=== PATIENT | female | born 1940 | race Caucasian/White ===

== ENCOUNTER 2020-09-06 15:58 | Inpatient (IN) | payer MEDICARE ==
[2020-09-06] MEDS ORDERED: NALOXONE 0.4 MG/ML 1 ML VIAL IV PRN (16:12)
[2020-09-06] MEDS ORDERED: SODIUM CHLORIDE 0.9% 1,000 ML IV SCH (16:15)
--- NOTE | 2020-09-06 16:17 | ED ---
General Adult HPI - General Chief complaint: Abdominal Pain Stated complaint: gallbladder Time Seen by Provider: 09/06/20 15:59 Source: patient, RN notes reviewed, old records reviewed Mode of arrival: EMS Limitations: no limitations - History of Present Illness Initial comments: 80-year-old female presenting for evaluation of abdominal pain and CT findings of acute cholecystitis. Patient was seen at outside emergency department and was found to have acute cholecystitis she was transferred here for surgical evaluation. She denies fever. Denies vomiting. Pain is epigastric and right upper quadrant. She did have one episode of diarrhea. - Related Data Allergies Allergy/AdvReac Type Severity Reaction Status Date / Time No Known Allergies Allergy Verified 09/06/20 16:05 Review of Systems ROS Statement: Those systems with pertinent positive or pertinent negative responses have been documented in the HPI. ROS Other: All systems not noted in ROS Statement are negative. Past Medical History Past Medical History: GERD/Reflux, Hyperlipidemia, Hypertension, Thyroid Disorder Additional Past Medical History / Comment(s): anemia History of Any Multi-Drug Resistant Organisms: None Reported Past Surgical History: Hysterectomy Past Psychological History: Anxiety, Depression Smoking Status: Never smoker Past Alcohol Use History: None Reported Past Drug Use History: None Reported General Exam Limitations: no limitations General appearance: alert, in no apparent distress Head exam: Present: atraumatic, normocephalic Eye exam: Present: normal appearance, PERRL ENT exam: Present: normal exam Neck exam: Present: normal inspection. Absent: tenderness, meningismus Respiratory exam: Present: normal lung sounds bilaterally. Absent: respiratory distress, wheezes Cardiovascular Exam: Present: regular rate, normal rhythm GI/Abdominal exam: Present: soft, tenderness (Epigastric and right upper quadrant tenderness). Absent: distended, guarding, rebound Extremities exam: Present: normal inspection, normal capillary refill Neurological exam: Present: alert, oriented X3, CN II-XII intact. Absent: motor sensory deficit Psychiatric exam: Present: normal affect, normal mood Skin exam: Present: warm, dry, intact. Absent: cyanosis, diaphoretic Course Vital Signs 09/06/20 15:59 Temperature 98.0 F Pulse Rate 59 L Respiratory 18 Rate Blood Pressure 129/65 O2 Sat by Pulse 95 Oximetry Medical Decision Making - Medical Decision Making Workup had revealed inflammation surrounding the gallbladder extending to the pancreatic head, concerning for an acute cholecystitis. Patient was started on Zosyn prior to transfer. She had lab abnormalities including a white blood cell count of 24. Hemoglobin 12.1. Platelets 236. She had normal AST and ALT and negative lipase. I discussed case with Dr. Gonzales, she will accept the patient for surgical evaluation. Patient kept on a clear liquid diet, continued on Zosyn. The CT images will be loaded. Laboratory studies will be repeated including CBC, CMP, PT/INR and type and screen these are pending. Disposition Clinical Impression: Acute cholecystitis Disposition: ADMITTED IP TO THIS HOSP Condition: Stable Is patient prescribed a controlled substance at d/c from ED?: No Referrals: José Miguel Marques MD [Primary Care Provider] - 1-2 days Decision to Admit Reason: Admit from EC Decision Date: 09/06/20 Decision Time: 16:17
[2020-09-06 16:26] LABS: Basophils % (A) 0 %; Eosinophils % (A) 0 %; HCT 32.3 % (34.0-46.0); HGB 11.2 gm/dL (11.4-16.0); Lymphocytes # (A) 1.1 k/uL (1.0-4.8); Lymphocytes % (A) 6 %; MCH 33.9 pg (25.0-35.0); MCHC 34.6 g/dL (31.0-37.0); MCV 98.1 fL (80.0-100.0); Mean Platelet Volume 7.3; Monocytes # (A) 0.7 k/uL (0-1.0); Monocytes % (A) 3 %; Neutrophils % (A) 89 %; Platelet Count 173 k/uL (150-450); RDW 12.5 % (11.5-15.5); WBC 19.1 k/uL (3.8-10.6)
[2020-09-06 16:34] LABS: Albumin 3.1 g/dL (3.5-5.0); Calcium 8.3 mg/dL (8.4-10.2); Potassium 3.3 mmol/L (3.5-5.1); Prothrombin Time 10.7 sec (9.0-12.0); Total Bilirubin 0.9 mg/dL (0.2-1.3); Total Protein 5.9 g/dL (6.3-8.2)
[2020-09-06] MEDS ORDERED: Potassium Replacement Protocol 1 EACH MISC MISCELLANE PRN ×2 (17:12→21:17)
[2020-09-06] MEDS: POTASSIUM CHLORIDE ER 20 MEQ TAB.ER PO SCH ×2 (18:08→20:04)
[2020-09-06] MEDS: METOPROLOL TARTRATE 12.5 MG TAB PO SCH (20:46)
[2020-09-06] MEDS ORDERED: Magnesium Replacement Protocol 1 EACH MISC MISCELLANE PRN (21:17)
[2020-09-06] MEDS: PANTOPRAZOLE 40 MG/10 ML VIAL IVP SCH (21:36)
[2020-09-06] MEDS: HEPARIN SODIUM,PORCINE 5,000 UNIT/ML 1 ML VIAL SQ SCH (21:36)
[2020-09-06] MEDS: SODIUM CHLORIDE 0.9% 1,000 ML with POTASSIUM CHLORIDE 40 MEQ IV SCH ×2 (22:57)
[2020-09-07] MEDS: PIPERACILLIN-TAZOBACTAM 3.375 GM in SODIUM CHLORIDE 0.9% 100 ML IVPB SCH ×3 (00:15→15:39)
--- NOTE | 2020-09-07 03:57 | CONS ---
CONSULTATION DATE OF SERVICE: 09/06/2020 REASON FOR CONSULTATION: Advice regarding hypertension, hyperlipidemia requested by Dr. Gonzales. HISTORY OF PRESENT ILLNESS: This 80-year-old woman with a past medical history of hypertension, hyperlipidemia, hypothyroidism, history of GERD, living in [facility], was admitted with abdominal pain. The patient had a CT scan finding which showed acute cholecystitis. The patient was transferred from [facility] for surgical evaluation. There is no history of any fever or rigors. No headache, loss of consciousness, seizures at this time. PAST MEDICAL HISTORY: History of GERD, hypertension, hyperlipidemia, history of bowel resection, appendectomy. MEDICATIONS: Medications are home medication: 1. Ambien 5 mg at bedtime. 2. Paxil 30 mg daily. 3. Metoprolol 12.5 mg b.i.d. 4. Synthroid 75 mcg p.o. daily. 5. Esomeprazole 40 mg at bedtime. ALLERGIES: None. FAMILY HISTORY: No history of heart disease or strokes in family. SOCIAL HISTORY: No history of smoking. No history of alcohol intake. REVIEW OF SYSTEMS: ENT: No diminished hearing or diminished vision. CARDIOVASCULAR SYSTEM: No angina. RESPIRATORY SYSTEM: No cough, hemoptysis GI: As mentioned earlier. : No dysuria. NERVOUS SYSTEM: No numbness or weakness. ALLERGY/IMMUNOLOGY: No asthma or hayfever. MUSCULOSKELETAL: As mentioned earlier. HEMATOLOGY/ONCOLOGY: No history of anemia. ENDOCRINE: As mentioned earlier. CONSTITUTIONAL: As mentioned earlier. DERMATOLOGY: Negative. RHEUMATOLOGY: Negative. PSYCHIATRIC: As mentioned earlier. PHYSICAL EXAMINATION: Patient is alert and oriented x3. Pulse 60, blood pressure 134/64, respiration 18, temperature 98 degrees, pulse ox 96% on room air. HEENT: Conjunctivae normal. Oral mucosa moist. NECK: No jugular venous distention. No carotid bruit. No lymph node enlargement. CARDIOVASCULAR: S1, S2 muffled. RESPIRATORY: Breath sounds diminished at the bases. No rhonchi, no crackles. ABDOMEN: Soft, mild diffuse discomfort in the upper abdomen. No guarding. No rigidity. No mass palpable. Bowel sounds present. LEGS: No edema. NERVOUS SYSTEM: Higher functions as mentioned. Moves all 4 limbs. LYMPHATICS: No lymphadenopathy of the neck, axillae or groin. SKIN: No ulcer, rash or bleeding. JOINTS: No active deforming arthropathy. LABS: WBC 19.1, hemoglobin 11.2. Sodium 123, potassium 3.3. LFTs are normal. ASSESSMENT: 1. Acute cholecystitis with abdominal pain. 2. Hyponatremia. 3. Hypokalemia. 4. Increased creatinine with possibly chronic kidney disease stage 3. 5. Increased WBC. 6. Anemia. 7. Hypertension. 8. Hyperlipidemia. 9. Hypothyroidism. 10.Appendectomy. 11.Bowel resection. 12.History of anxiety, depression. 13.NO CODE, NO CPR, NO VENT. RECOMMENDATIONS AND DISCUSSION: This 80-year-old woman presented with multiple medical issues, we will monitor the patient closely. Continue the current medications, continue symptomatic treatment. Repeat labs. Supplement potassium. Check magnesium. Otherwise cut down the IV fluids. The patient is medically stable and cleared for surgery. We will closely monitor. DVT prophylaxis. Incentive spirometry. The patient may be asked to follow with primary physician closely after discharge. Thank you Dr. Gonzales for letting us participate in the care of this patient. MMCONYL / BERNICEN: [id number] /
[2020-09-07] MEDS: LEVOTHYROXINE 75 MCG TAB PO SCH (05:14)
[2020-09-07] MEDS: METOPROLOL TARTRATE 12.5 MG TAB PO SCH (08:23)
[2020-09-07] MEDS: PARoxetine 20 MG TAB PO SCH (08:24)
[2020-09-07] MEDS: PANTOPRAZOLE 40 MG/10 ML VIAL IVP SCH (08:24)
[2020-09-07] MEDS: HEPARIN SODIUM,PORCINE 5,000 UNIT/ML 1 ML VIAL SQ SCH ×2 (08:24→22:19)
--- NOTE | 2020-09-07 09:07 | P.GSHP ---
<Leatha June - Last Filed: 09/07/20 09:00> History of Present Illness H&P Date: 09/07/20 CHIEF COMPLAINT: abdominal pain HISTORY OF PRESENT ILLNESS: This is a 80-year-old female with a known past medical history of hypertension, GERD, hyperlipidemia and hypothyroidism. Patient reports having abdominal pain in which she thought was pulled muscles after doing yard work for the last week. She had a computed tomography scan done of abdomen completed at [facility] her ER physician reported inflammation surrounding the gallbladder extending into the pancreatic head concerning for acute cholecystitis. Her LFTs and lipase are normal. Patient did report eating cheese and milk yesterday. She denies any change in bowel habits. She denies any fever, chills or sweats. She is complaining of urinary frequency. PAST MEDICAL HISTORY: See list. PAST SURGICAL HISTORY: See list. MEDICATIONS: See list. ALLERGIES: See list. SOCIAL HISTORY: No illicit drug use. REVIEW OF SYSTEMS: CONSTITUTIONAL: Denies fever or chills. HEENT: Denies blurred vision, vision changes, or eye pain. Denies hemoptysis ENDOCRINE: Denies heat or cold intolerance. CARDIOVASCULAR: Denies chest pain or pressure. RESPIRATORY: No shortness of breath. GASTROINTESTINAL: Denies abdominal pain. Denies nausea or vomiting. NEURO: Denies history of seizures. PSYCH: No depression or suicidal ideation HEMATOLOGIC: Denies bleeding disorders. LYMPHATIC: The patient denies any lumps and bumps around the neck. GENITOURINARY: Denies any blood in urine or increased urinary frequency. MUSCULOSKELETAL: Denies myalgias. Denies joint swelling. Denies decreased range of motion beyond patients baseline. SKIN: Denies pruitis. Denies rash. PHYSICAL EXAM: VITAL SIGNS: Reviewed GENERAL: Well-developed in no acute distress. HEENT: No sclera icterus. Extraocular movements grossly intact. Moist buccal mucosa. Head is atraumatic, normocephalic. Hears conversational speech. No nasal drainage. NECK: Supple without lymphadenopathy. CHEST: Non-labored respirations and equal bilateral excursions. CARDIOVASCULAR: Regular rate with regular rhythm. Palpable 2+ radial pulses. ABDOMEN: Soft. Nondistended. Tenderness with palpation of the right upper quadrant MUSCULOSKELETAL: No clubbing or cyanosis. NEUROLOGIC: No focal or lateralizing signs. Cranial nerves II through XII grossly intact. PSYCH: Appropriate affect. Alert and oriented to person, place and time. SKIN: Well perfused. Good skin turgor. LABORATORY DATA: WBC 19.1 hemoglobin 11.2 platelets 173 sodium 123 potassium 3.3 up to 4.0 creatinine 1.63 AST 23 ALT 12 lipase 57 IMAGING: ASSESSMENT: 1. Right upper quadrant abdominal pain concerns for possible cholecystitis 2. Hyponatremia 3. Hypokalemia 4. Hypertension 5. History of GERD 6. History of hyperlipidemia PLAN: -Check abdominal ultrasound to further evaluate the gallbladder -Start patient on a clear liquid diet -Start patient on Ditropan for urinary frequency -Continue antibiotics -Continue IV fluids -Medical consult for medical management -Cardiology consult for cardiac clearance Physician Cigarette Making Machine Catcher note has been reviewed by physician. Signing provider agrees with the documented findings, assessment, and plan of care. Past Medical History Past Medical History: GERD/Reflux, Hyperlipidemia, Hypertension, Thyroid Disorder Additional Past Medical History / Comment(s): anemia History of Any Multi-Drug Resistant Organisms: None Reported Past Surgical History: Appendectomy, Bowel Resection, Hysterectomy Additional Past Surgical History / Comment(s): partial bowel resection with the hysterectomy Past Psychological History: Anxiety, Depression Smoking Status: Never smoker Past Alcohol Use History: None Reported Past Drug Use History: None Reported Medications and Allergies Home Medications Medication Instructions Recorded Confirmed Type Esomeprazole Magnesium 40 mg PO HS 09/06/20 09/06/20 History Levothyroxine Sodium [Synthroid] 75 mcg PO DAILY 09/06/20 09/06/20 History Metoprolol Tartrate 12.5 mg PO BID 09/06/20 09/06/20 History PARoxetine [Paxil] 30 mg PO DAILY 09/06/20 09/06/20 History Zolpidem Tartrate [Ambien] 5 mg PO HS 09/06/20 09/06/20 History Allergies Allergy/AdvReac Type Severity Reaction Status Date / Time No Known Allergies Allergy Verified 09/06/20 16:47 Surgical - Exam Vital Signs Temp Pulse Resp BP Pulse Ox 98.0 F 59 L 18 129/65 95 09/06/20 15:59 09/06/20 15:59 09/06/20 15:59 09/06/20 15:59 09/06/20 15:59 Results - Labs 09/06/20 16:14 09/06/20 22:13 Abnormal Lab Results - Last 24 Hours (Table) 09/06/20 09/06/20 Range/Units 16:14 16:14 WBC 19.1 H (3.8-10.6) k/uL RBC 3.30 L (3.80-5.40) m/uL Hgb 11.2 L (11.4-16.0) gm/dL Hct 32.3 L (34.0-46.0) % Neutrophils # 17.0 H (1.3-7.7) k/uL Sodium 123 L (137-145) mmol/L Potassium 3.3 L (3.5-5.1) mmol/L Chloride 91 L (98-107) mmol/L BUN 26 H (7-17) mg/dL Creatinine 1.63 H (0.52-1.04) mg/dL Glucose 110 H (74-99) mg/dL Calcium 8.3 L (8.4-10.2) mg/dL Total Protein 5.9 L (6.3-8.2) g/dL Albumin 3.1 L (3.5-5.0) g/dL Diabetes panel 09/06/20 09/06/20 Range/Units 16:14 22:13 Sodium 123 L (137-145) mmol/L Potassium 3.3 L 4.0 (3.5-5.1) mmol/L Chloride 91 L (98-107) mmol/L Carbon Dioxide 24 (22-30) mmol/L BUN 26 H (7-17) mg/dL Creatinine 1.63 H (0.52-1.04) mg/dL Glucose 110 H (74-99) mg/dL Calcium 8.3 L (8.4-10.2) mg/dL AST 23 (14-36) U/L ALT 12 (4-34) U/L Alkaline Phosphatase 81 (38-126) U/L Total Protein 5.9 L (6.3-8.2) g/dL Albumin 3.1 L (3.5-5.0) g/dL Calcium panel 09/06/20 Range/Units 16:14 Calcium 8.3 L (8.4-10.2) mg/dL Albumin 3.1 L (3.5-5.0) g/dL Pituitary panel 09/06/20 09/06/20 Range/Units 16:14 22:13 Sodium 123 L (137-145) mmol/L Potassium 3.3 L 4.0 (3.5-5.1) mmol/L Chloride 91 L (98-107) mmol/L Carbon Dioxide 24 (22-30) mmol/L BUN 26 H (7-17) mg/dL Creatinine 1.63 H (0.52-1.04) mg/dL Glucose 110 H (74-99) mg/dL Calcium 8.3 L (8.4-10.2) mg/dL Adrenal panel 09/06/20 09/06/20 Range/Units 16:14 22:13 Sodium 123 L (137-145) mmol/L Potassium 3.3 L 4.0 (3.5-5.1) mmol/L Chloride 91 L (98-107) mmol/L Carbon Dioxide 24 (22-30) mmol/L BUN 26 H (7-17) mg/dL Creatinine 1.63 H (0.52-1.04) mg/dL Glucose 110 H (74-99) mg/dL Calcium 8.3 L (8.4-10.2) mg/dL Total Bilirubin 0.9 (0.2-1.3) mg/dL AST 23 (14-36) U/L ALT 12 (4-34) U/L Alkaline Phosphatase 81 (38-126) U/L Total Protein 5.9 L (6.3-8.2) g/dL Albumin 3.1 L (3.5-5.0) g/dL <Katie Gonzales - Last Filed: 09/07/20 22:10> History of Present Illness Patient seen and evaluated with above. Please see additional documentation below. HISTORY OF PRESENT ILLNESS: The patient is a 80-year-old female transferred from outside facility due to acute cholecystitis. Patient reports she has been feeling ill for almost one week with lower abdominal pain. She reports eating cheese and milk daily. She denies any family history of gallbladder disease. She is transferred from her local facility to [facility] following diagnostic studies demonstrating acute cholecystitis. She is tearful as she was transferred away from home at least 1.5 hrs. 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 She is scared. She was transferred for treatment of acute cholecystitis. PAST MEDICAL HISTORY: See list and reviewed PAST SURGICAL HISTORY: See list and reviewed MEDICATIONS: See list and reviewed ALLERGIES: See list and reviewed SOCIAL HISTORY: See list and reviewed FAMILY HISTORY: See list and reviewed REVIEW OF ORGAN SYSTEMS: CONSTITUTIONAL: No fevers or chills. EYES: Denies any trouble with vision. No glasses. HEENT: No difficulties with hearing. No nosebleeds. No difficulty swallowing. RESPIRATORY: Denies pneumonia. Denies any troubles with breathing or dyspnea on exertion. CARDIOVASCULAR: Denies any chest pain, palpitations, or recent heart attacks. GASTROINTESTINAL: Denies fatty food intolerance. Denies change in bowel habits and gas bloat. Previous bowel resection. Has gastroesophageal reflux disease. GENITOURINARY: Denies any blood in urine or increased urinary frequency. Previous hysterectomy. NEUROLOGICAL: Denies any numbness or tingling along the distal extremities. No seizure disorders or headaches. MUSCULOSKELETAL: Has back pain, stiffness or joint arthritis. SKIN: No current skin cancer. No rash. PSYCHIATRIC: Has depression. No suicidal thoughts. Has anxiety. ENDOCRINE: Has thyroid disorders. Denies any blood sugar glucose intolerance. HEME/LYMPHATIC: Denies any lumps and bumps around the neck. No recent deep venous thrombosis. ALLERGY/IMMUNOLOGY: No immunoglobulin therapy. No immune deficiencies. PHYSICAL EXAM: VITALS: Reviewed CONSTITUTIONAL: Well developed and in no acute distress. EYES: Conjuctivae without sclera icterus. Pupils are equally round and reactive to light. Extraocular movements grossly intact. HEAD, EARS, NOSE, THROAT: Moist buccal mucosa. Head is atraumatic, normocephalic. Hears conversational speech. No nasal drainage. NECK: Supple. No JV distention. No thyroidomegaly. RESPIRATORY: Non-labored respirations and equal bilateral excursions. No gross wheezes. CARDIOVASCULAR: Regular rate and rhythm. Extremities without moderate edema. Palpable 2+ radial pulses. ABDOMEN: Soft. Non-tender. Nondistended. MUSCULOSKELETAL: Nail and fingers with good capillary refill. SKIN: Warm and well perfused with good skin turgor. NEUROLOGIC: Cranial nerves II through XII grossly intact. Sensation upper and extremities intact. No focal or lateralizing signs. PSYCH: Appropriate affect. Alert and oriented to person, place and time. Displays appropriate insight. CLINCAL LABS: Reviewed. WBC 19,000 down down to 17,000. Hemoglobin stable 1 1.2. Initial sodium 123 now up to 130. Creatinine improved from 1.63-1.12 IMAGING: Ultrasound of the gallbladder independently reviewed demonstrating thickened gallbladder wall with multiple gallstones. Findings are consistent with acute cholecystitis. EKG: Nonspecific ST abnormality with premature atrial contractions. ECHO: Report revealed with ejection fraction of 55 to 60%. No moderate p ulmonary hypertension. Enlarged left atrium identified. No wall motion abnormality. Moderate left ventricular hypertrophy. ASSESSMENT: 1. Acute cholecystitis 2. Hyponatremia 3. Depressive disorder PLAN: 1. Patient is homesick and wishes to avoid surgery. However, sodium still low. Will need further correction of sodium. 2. Patient has features consistent with acute cholecystitis. Continue IV antibiotics. 3. Clear liquid diet in the interim. 4. Patient presents with elevated risk for perioperative complications due to delayed presentation of acute cholecystitis and hyponatremia. 5. Will need cholecystectomy due to cholecystitis Surgical - Exam Vital Signs Temp Pulse Resp BP Pulse Ox 98.0 F 59 L 18 129/65 95 09/06/20 15:59 09/06/20 15:59 09/06/20 15:59 09/06/20 15:59 09/06/20 15:59 Results - Labs 09/07/20 08:35 09/07/20 08:35 Abnormal Lab Results - Last 24 Hours (Table) 09/07/20 09/07/20 Range/Units 08:35 08:35 WBC 17.0 H (3.8-10.6) k/uL RBC 3.33 L (3.80-5.40) m/uL Hgb 11.2 L (11.4-16.0) gm/dL Hct 33.5 L (34.0-46.0) % MCV 100.4 H (80.0-100.0) fL Neutrophils # 15.4 H (1.3-7.7) k/uL Lymphocytes # 0.7 L (1.0-4.8) k/uL Sodium 130 L (137-145) mmol/L Carbon Dioxide 21 L (22-30) mmol/L Creatinine 1.12 H (0.52-1.04) mg/dL Total Protein 6.2 L (6.3-8.2) g/dL Albumin 3.3 L (3.5-5.0) g/dL Diabetes panel 09/06/20 09/07/20 Range/Units 22:13 08:35 Sodium 130 L (137-145) mmol/L Potassium 4.0 4.9 (3.5-5.1) mmol/L Chloride 100 (98-107) mmol/L Carbon Dioxide 21 L (22-30) mmol/L BUN 17 (7-17) mg/dL Creatinine 1.12 H (0.52-1.04) mg/dL Glucose 94 (74-99) mg/dL Calcium 8.7 (8.4-10.2) mg/dL AST 24 (14-36) U/L ALT 14 (4-34) U/L Alkaline Phosphatase 107 (38-126) U/L Total Protein 6.2 L (6.3-8.2) g/dL Albumin 3.3 L (3.5-5.0) g/dL Calcium panel 09/07/20 Range/Units 08:35 Calcium 8.7 (8.4-10.2) mg/dL Albumin 3.3 L (3.5-5.0) g/dL Pituitary panel 09/06/20 09/07/20 Range/Units 22:13 08:35 Sodium 130 L (137-145) mmol/L Potassium 4.0 4.9 (3.5-5.1) mmol/L Chloride 100 (98-107) mmol/L Carbon Dioxide 21 L (22-30) mmol/L BUN 17 (7-17) mg/dL Creatinine 1.12 H (0.52-1.04) mg/dL Glucose 94 (74-99) mg/dL Calcium 8.7 (8.4-10.2) mg/dL Adrenal panel 09/06/20 09/07/20 Range/Units 22:13 08:35 Sodium 130 L (137-145) mmol/L Potassium 4.0 4.9 (3.5-5.1) mmol/L Chloride 100 (98-107) mmol/L Carbon Dioxide 21 L (22-30) mmol/L BUN 17 (7-17) mg/dL Creatinine 1.12 H (0.52-1.04) mg/dL Glucose 94 (74-99) mg/dL Calcium 8.7 (8.4-10.2) mg/dL Total Bilirubin 0.8 (0.2-1.3) mg/dL AST 24 (14-36) U/L ALT 14 (4-34) U/L Alkaline Phosphatase 107 (38-126) U/L Total Protein 6.2 L (6.3-8.2) g/dL Albumin 3.3 L (3.5-5.0) g/dL
--- NOTE | 2020-09-07 09:11 | P.CRDCN ---
History of Present Illness Consult date: 09/07/20 Reason for Consult (text): pre op clearance Chief complaint: Abdominal pain History of present illness: This is a pleasant 80-year-old female with documented history of hypertension, hyperlipidemia, hypothyroidism, GERD, who lives in the [place] area. She presented to [facility] with symptoms of abdominal pain. Initially the patient thought she may have strained muscles in her abdomen from working outside. Computed tomography scan was performed which revealed acute cholecystitis. A cardiology consultation was requested for preoperative clearance. Patient denies any history of coronary artery disease. She does state that she gets a pressure and heaviness in her chest that comes and goes, she's been experiencing this off and on for several years. No more recently than usual. She denies any recent shortness of breath, no fever chills, no dizziness or lightheadedness, no palpitations. Patient states that she was working out in her garden the morning prior to going to [facility], when we asked her regarding her activity level she states that she is not very active at all because of back problems. Her EKG shows a sinus bradycardia with occasional PACs. White blood cell count 19.1, hemoglobin 11.2, platelet count 173, sodium on admission 123, potassium 3.3, 4.0 on subsequent draw, chloride 91, CO2 24, BUN 26, creatinine 1.6. AST and ALT are normal. The patient's home medications include Ambien 5 mg at bedtime, Paxil, metoprolol 12-1/2 twice a day, Synthroid 75 g daily, and Nexium. Past Medical History Past Medical History: GERD/Reflux, Hyperlipidemia, Hypertension, Thyroid Disorder Additional Past Medical History / Comment(s): anemia History of Any Multi-Drug Resistant Organisms: None Reported Past Surgical History: Appendectomy, Bowel Resection, Hysterectomy Additional Past Surgical History / Comment(s): partial bowel resection with the hysterectomy Past Psychological History: Anxiety, Depression Smoking Status: Never smoker Past Alcohol Use History: None Reported Past Drug Use History: None Reported Medications and Allergies Home Medications Medication Instructions Recorded Confirmed Type Esomeprazole Magnesium 40 mg PO HS 09/06/20 09/06/20 History Levothyroxine Sodium [Synthroid] 75 mcg PO DAILY 09/06/20 09/06/20 History Metoprolol Tartrate 12.5 mg PO BID 09/06/20 09/06/20 History PARoxetine [Paxil] 30 mg PO DAILY 09/06/20 09/06/20 History Zolpidem Tartrate [Ambien] 5 mg PO HS 09/06/20 09/06/20 History Allergies Allergy/AdvReac Type Severity Reaction Status Date / Time No Known Allergies Allergy Verified 09/06/20 16:47 Physical Exam Vitals: Vital Signs Temp Pulse Pulse Resp BP BP Pulse Ox 09/07/20 07:44 98.5 F 85 18 137/72 95 09/07/20 03:00 98.4 F 70 17 127/69 96 09/06/20 21:00 98.2 F 64 18 137/72 96 09/06/20 17:00 98.0 F 60 18 134/64 96 09/06/20 15:59 98.0 F 59 L 18 129/65 95 Intake and Output 09/06/20 09/07/20 09/07/20 22:59 06:59 14:59 Intake Total 1640 Balance 1640 Intake: Intake, IV Titration 1040 Amount Sodium Chloride 0.9% 1, 1040 000 ml @ 130 mls/hr IV . Q7H42M [facility] Rx#:[id number] Oral 600 Other: Voiding Method Toilet Toilet # Voids 1 3 Weight 68.039 kg PHYSICAL EXAMINATION: GENERAL: 80-year-old female in no acute distress at the time of my examination HEENT: Head is atraumatic, normocephalic. Pupils equal, round. Sclera anicteric. Conjunctiva are clear. Mucous membranes of the mouth are moist. Neck is supple. There is no elevated jugular venous pressure. No carotid bruit is heard. HEART EXAMINATION: Heart S1, S2 normal. No murmur or gallop heard. CHEST EXAMINATION: Lungs are clear to auscultation and precussion. No chest wall tenderness is noted on palpation or with deep breathing. ABDOMEN: Soft, mild tenderness in the right upper quadrant. Bowel sounds are heard. No organomegaly noted. EXTREMITIES: 2+ peripheral pulses with no evidence of peripheral edema and no calf tenderness noted. NEUROLOGIC patient is awake, alert and oriented 3 . Results 09/06/20 16:14 09/06/20 22:13 Cardiac Enzymes 09/06/20 Range/Units 16:14 AST 23 (14-36) U/L Coagulation 09/06/20 Range/Units 16:14 PT 10.7 (9.0-12.0) sec CBC 09/06/20 Range/Units 16:14 WBC 19.1 H (3.8-10.6) k/uL RBC 3.30 L (3.80-5.40) m/uL Hgb 11.2 L (11.4-16.0) gm/dL Hct 32.3 L (34.0-46.0) % Plt Count 173 (150-450) k/uL Comprehensive Metabolic Panel 09/06/20 09/06/20 Range/Units 16:14 22:13 Sodium 123 L (137-145) mmol/L Potassium 3.3 L 4.0 (3.5-5.1) mmol/L Chloride 91 L (98-107) mmol/L Carbon Dioxide 24 (22-30) mmol/L BUN 26 H (7-17) mg/dL Creatinine 1.63 H (0.52-1.04) mg/dL Glucose 110 H (74-99) mg/dL Calcium 8.3 L (8.4-10.2) mg/dL AST 23 (14-36) U/L ALT 12 (4-34) U/L Alkaline Phosphatase 81 (38-126) U/L Total Protein 5.9 L (6.3-8.2) g/dL Albumin 3.1 L (3.5-5.0) g/dL Current Medications Generic Name Dose Route Start Last Admin Trade Name Freq PRN Reason Stop Dose Admin Heparin Sodium (Porcine) 5,000 unit 09/06/20 21:30 09/07/20 08:24 Heparin Sodium,Porcine 5,000 Unit/Ml 1 Ml Vial SQ 5,000 unit Q12HR DOROTHY Administration Hydromorphone HCl 0.5 mg 09/06/20 16:12 Hydromorphone 0.5 Mg/0.5 Ml Syringe IVP Q3HR PRN Moderate Pain Piperacillin Sod/Tazobactam 100 mls @ 25 mls/hr 09/07/20 00:00 09/07/20 08:23 Sod 3.375 gm/ Sodium Chloride IVPB 25 mls/hr Q8HR DOROTHY Administration Potassium Chloride 40 meq/ 1,020 mls @ 60 mls/hr 09/06/20 21:20 09/06/20 22:57 Sodium Chloride IV Not Given .Q17H DOROTHY Levothyroxine Sodium 75 mcg 09/07/20 06:30 09/07/20 05:14 Levothyroxine 75 Mcg Tab PO 75 mcg 0630 DOROTHY Administration Metoprolol Tartrate 12.5 mg 09/06/20 21:00 09/07/20 08:23 Metoprolol Tartrate 12.5 Mg Tab PO 12.5 mg BID DOROTHY Administration Miscellaneous Information 1 each 09/06/20 17:12 Potassium Replacement Protocol 1 Each Misc MISCELLANE DAILY PRN Per Protocol Protocol Miscellaneous Information 1 each 09/06/20 21:17 Magnesium Replacement Protocol 1 Each Misc MISCELLANE DAILY PRN Per Protocol Protocol Miscellaneous Information 1 each 09/06/20 21:17 Potassium Replacement Protocol 1 Each Misc MISCELLANE DAILY PRN Per Protocol Protocol Naloxone HCl 0.2 mg 09/06/20 16:12 Naloxone 0.4 Mg/Ml 1 Ml Vial IV Q2M PRN Opioid Reversal Oxybutynin Chloride 5 mg 09/07/20 09:00 Oxybutynin Chloride 5 Mg Tab PO DAILY DOROTHY Pantoprazole Sodium 40 mg 09/06/20 21:30 09/07/20 08:24 Pantoprazole 40 Mg/10 Ml Vial IVP 40 mg DAILY DOROTHY Administration Paroxetine HCl 30 mg 09/07/20 09:00 09/07/20 08:24 Paroxetine 20 Mg Tab PO 30 mg DAILY DOROTHY Administration Zolpidem Tartrate 5 mg 09/07/20 21:00 Zolpidem 5 Mg Tab PO HS DOROTHY Intake and Output 09/06/20 09/07/20 09/07/20 22:59 06:59 14:59 Intake Total 1640 Balance 1640 Intake: Intake, IV Titration 1040 Amount Sodium Chloride 0.9% 1, 1040 000 ml @ 130 mls/hr IV . Q7H42M [facility] Rx#:[id number] Oral 600 Other: Voiding Method Toilet Toilet # Voids 1 3 Weight 68.039 kg 09/06/20 16:14 09/06/20 22:13 EKG Interpretations (text) EKG shows a sinus bradycardia with occasional PAC Assessment and Plan Plan: Assessment and plan #1 abdominal pain with evidence of acute cholecystitis #2 hyponatremia #3 hypokalemia #4 elevated creatinine #5 hypertension #6 hyperlipidemia, not on a statin #7 hypothyroidism #8 prior bowel resection #9 elevated white blood cell count Plan We will obtain an echocardiogram with Doppler study, patient is considered moderate risk for surgery considering her age. We will continue to follow the patient. DNP note has been reviewed, I agree with a documented findings and plan of care. Patient was seen and examined.
[2020-09-07 09:28] LABS: Basophils % (A) 0 %; Eosinophils % (A) 0 %; HCT 33.5 % (34.0-46.0); HGB 11.2 gm/dL (11.4-16.0); Lymphocytes # (A) 0.7 k/uL (1.0-4.8); Lymphocytes % (A) 4 %; MCH 33.7 pg (25.0-35.0); MCHC 33.6 g/dL (31.0-37.0); MCV 100.4 fL (80.0-100.0); Monocytes # (A) 0.6 k/uL (0-1.0); Monocytes % (A) 3 %; Neutrophils # (A) 15.4 k/uL (1.3-7.7); Neutrophils % (A) 91 %; Platelet Count 179 k/uL (150-450); RBC 3.33 m/uL (3.80-5.40); RDW 12.6 % (11.5-15.5)
[2020-09-07 09:43] LABS: Albumin 3.3 g/dL (3.5-5.0); Calcium 8.7 mg/dL (8.4-10.2); Magnesium 1.8 mg/dL (1.6-2.3); Potassium 4.9 mmol/L (3.5-5.1); Total Bilirubin 0.8 mg/dL (0.2-1.3); Total Protein 6.2 g/dL (6.3-8.2)
--- NOTE | 2020-09-07 10:02 | US ---
EXAMINATION TYPE: US abdomen complete DATE OF EXAM: 09/07/2020 COMPARISON: NONE CLINICAL HISTORY: Right upper quadrant abdominal pain. EXAM MEASUREMENTS: Liver Length: 12.8 cm Gallbladder Wall: 1.3 cm CBD: Obscured by bowel gas Spleen: 6.8 cm Right Kidney: 9.2 x 3.5 x 4.4 cm Left Kidney: 9.1 x 4.4 x 3.9 cm Severe overlying bowel gas, with very limited acoustic windows, technically difficult, limited study. Pancreas: Obscured by bowel gas Liver: portions visualized wnl, limited views Gallbladder: thick edematous wall with stones and possible sludge Evidence for sonographic Muñoz's sign: No CBD: Obscured by overlying bowel gas Spleen: portions visualized wnl, very limited views Right Kidney: portions visualized wnl, very limited views Left Kidney: portions visualized wnl, very limited views Upper IVC: wnl Abd Aorta: Obscured by overlying bowel gas IMPRESSION: 1. Cholelithiasis. Gallbladder wall thickening is present. Correlate for acute cholecystitis.
[2020-09-07] MEDS: OXYBUTYNIN CHLORIDE 5 MG TAB PO SCH (11:39)
--- NOTE | 2020-09-07 12:36 | ECHOF ---
Referral Reason:pre op clearance MEASUREMENTS -------- HEIGHT: 160.0 cm WEIGHT: 68.0 kg BP: 137/72 RVIDd: 3.1 cm (< 3.3) IVSd: 1.4 cm (0.6 - 1.1) LVIDd: 3.5 cm (3.9 - 5.3) LVPWd: 1.3 cm (0.6 - 1.1) IVSs: 1.8 cm LVIDs: 2.1 cm LVPWs: 1.7 cm LAESV Index (A-L): 52.40 ml/m Ao Diam: 3.5 cm (2.0 - 3.7) AV Cusp: 1.8 cm (1.5 - 2.6) MV EXCURSION: 17.153 mm (> 18.000) MV EF SLOPE: 52 mm/s (70 - 150) EPSS: 0.5 cm MV E Alvaro: 1.02 m/s MV DecT: 167 ms MV A Alvaro: 0.77 m/s MV E/A Ratio: 1.33 RAP: 5.00 mmHg RVSP: 43.26 mmHg FINDINGS -------- Sinus rhythm. This was a technically difficult study with suboptimal views. The left ventricular size is normal. There is moderate concentric left ventricular hypertrophy. O verall left ventricular systolic function is normal with, an EF between 55 - 60 %. The right ventricle is normal in size. LA is severely dilated >40 ml/m2 The right atrium is mildly enlarged. 5.0mg of Lumason was utilized for enhancement of images Interatrial septal aneurysm. The aortic valve is trileaflet, and appears structurally normal. No aortic stenosis or regurgitation. Moderate mitral annular calcification present. Rqgj-dv-mqqsuuwt mitral regurgitation is present. Zxqz-oe-drzwqvgu tricuspid regurgitation present. There is mild pulmonary hypertension. The right ventricular systolic pressure, as measured by Doppler, is 43.26mmHg. Trace/mild (physiologic) pulmonic regurgitation. The aortic root is dilated measuring {3.7 cm}. IVC Not well visulized. Echo free space may represent effusion or a pericardial fat pad. CONCLUSIONS -------- 1. There is moderate concentric left ventricular hypertrophy. 2. Overall left ventricular systolic function is normal with, an EF between 55 - 60 %. 3. LA is severely dilated >40 ml/m2 4. The right atrium is mildly enlarged. 5. The aortic valve is trileaflet, and appears structurally normal. No aortic stenosis or regurgitati on. 6. Moderate mitral annular calcification present. 7. Bzeg-gg-qmecqjdf mitral regurgitation is present. 8. Qotr-ts-qsenusus tricuspid regurgitation present. 9. There is mild pulmonary hypertension. 10. Trace/mild (physiologic) pulmonic regurgitation. 11. The aortic root is dilated measuring {3.7 cm}. PARTS RUNNER: Caterina Tapia RDCS
[2020-09-07] MEDS: SODIUM CHLORIDE 0.9% 1,000 ML with POTASSIUM CHLORIDE 40 MEQ IV SCH ×2 (14:23)
--- NOTE | 2020-09-07 15:04 | XR ---
EXAMINATION TYPE: XR chest 1V portable DATE OF EXAM: 09/07/2020 COMPARISON: None INDICATION: CHF TECHNIQUE: Single frontal view of the chest is obtained. FINDINGS: The heart size is enlarged. The pulmonary vasculature is normal. The lungs are clear. There appears to be a hiatal hernia present. Scoliosis and spondylosis is through the thoracic spine . IMPRESSION: 1. No acute pulmonary process. 2. There may be a hiatal hernia present.
[2020-09-07] MEDS: SODIUM CHLORIDE 0.9% 1,000 ML IV SCH (15:40)
--- NOTE | 2020-09-07 15:49 | PN ---
PROGRESS NOTE DATE OF SERVICE: 09/07/2020 This 80-year-old woman who was admitted with acute cholecystitis and abdominal pain is being closely monitored at this time. Cardiology has seen the patient. A 2D echo with Doppler was ordered. The patient also had multiple electrolyte abnormalities. Sodium and potassium were 123 and 3.3 yesterday. Today sodium is 139, potassium 4.9. Creatinine is 1.12, which is also improved. WBC is 17. The patient is on empiric antibiotics. Past medical history reviewed. REVIEW OF SYSTEMS: CARDIOVASCULAR SYSTEM: No angina, palpitations. RESPIRATORY SYSTEM: As mentioned earlier. GI: As mentioned earlier. : No dysuria or retention. NERVOUS SYSTEM: No numbness, weakness. CURRENT MEDICATIONS: Reviewed. They include heparin, Dilaudid, Synthroid, lopressor, replacement protocol, Ditropan, Paxil, IV Zosyn, Ambien. PHYSICAL EXAMINATION: Patient is alert and oriented x3. Pulse is 85, blood pressure 137/72, respiration 18, temperature 98.4, pulse ox 94% on room air. HEENT: Conjunctivae normal. NECK: No jugular venous distention. CARDIOVASCULAR SYSTEM: S1, S2 muffled. RESPIRATORY SYSTEM: Breath sounds diminished at the bases. No rhonchi. No crackles. ABDOMEN: Soft, non-tender. No guarding. No rigidity. No mass palpable. LEGS: No edema. No swelling. NERVOUS SYSTEM: No focal deficit. LABS: WBC 17, hemoglobin 11.2. Sodium 139, potassium 4.9. Creatinine is 1.12. ASSESSMENT: 1. Acute cholecystitis with abdominal pain. 2. Hyponatremia. 3. Hypokalemia. 4. Increased creatinine with possible acute renal failure with acute tubular necrosis, prerenal renal failure. 5. Possible chronic kidney disease, stage 3 baseline. 6. Increased white count. 7. Anemia. 8. Hypertension. 9. Hyperlipidemia. 10.History of hypothyroidism. 11.History of appendectomy. 12.History of bowel resection. 13.History of anxiety, depression. 14.NO CODE, NO CPR, NO VENT. RECOMMENDATIONS AND DISCUSSION: I recommend to continue current medications, continue with the monitoring, symptomatic treatment. We will monitor potassium closely. Continue the IV fluids at 60 mL/hour without potassium. We will continue to monitor. Repeat labs. Closely follow with Surgery. Further recommendations to follow. MMODL / IJN: [id number] /
[2020-09-07] MEDS: ZOLPIDEM 5 MG TAB PO SCH (22:19)
[2020-09-07] MEDS: METOPROLOL TARTRATE 25 MG TAB PO SCH (22:19)
[2020-09-08] MEDS: PIPERACILLIN-TAZOBACTAM 3.375 GM in SODIUM CHLORIDE 0.9% 100 ML IVPB SCH ×3 (00:24→20:56)
[2020-09-08 03:43] LABS: Amorphous Sediment,Urine Rare /hpf; Appearance,Urine Clear (Clear); Bacteria,Urine Rare /hpf; Bilirubin,Urine Negative (Negative); Blood,Urine Moderate (Negative); Color,Urine Light Yellow; Glucose,Urine (UA) Negative (Negative); Ketones,Urine Negative (Negative); Leukocyte Esterase,Urine Negative (Negative); Nitrite,Urine Negative (Negative); PH, Urine 5.5 (5.0-8.0); Protein,Urine 1+ (Negative); RBC,Urine 4 /hpf (0-5); Specific Gravity,Urine 1.008 (1.001-1.035); Squamous Epithelial Cell,Urine 1 /hpf (0-4); Urobilinogen,Urine <2.0 mg/dL (<2.0); WBC,Urine 2 /hpf (0-5)
[2020-09-08] MEDS: LEVOTHYROXINE 75 MCG TAB PO SCH (06:01)
[2020-09-08] MEDS: SODIUM CHLORIDE 0.9% 1,000 ML IV SCH ×2 (06:02→22:38)
[2020-09-08 08:22] LABS: Albumin 2.8 g/dL (3.5-5.0); Calcium 8.4 mg/dL (8.4-10.2); Total Bilirubin 0.8 mg/dL (0.2-1.3); Total Protein 5.6 g/dL (6.3-8.2)
[2020-09-08 08:23] LABS: Basophils % (A) 0 %; Eosinophils % (A) 0 %; HCT 29.2 % (34.0-46.0); Lymphocytes # (A) 0.8 k/uL (1.0-4.8); Lymphocytes % (A) 9 %; MCH 33.2 pg (25.0-35.0); MCHC 32.4 g/dL (31.0-37.0); MCV 102.6 fL (80.0-100.0); Macrocytosis Slight; Mean Platelet Volume 7.4; Monocytes # (A) 0.4 k/uL (0-1.0); Monocytes % (A) 4 %; Neutrophils # (A) 7.6 k/uL (1.3-7.7); Neutrophils % (A) 84 %; Platelet Count 207 k/uL (150-450); RBC 2.85 m/uL (3.80-5.40); RDW 13.1 % (11.5-15.5)
[2020-09-08 08:48] LABS: HGB 9.5 gm/dL (11.4-16.0)
[2020-09-08] MEDS: HEPARIN SODIUM,PORCINE 5,000 UNIT/ML 1 ML VIAL SQ SCH ×2 (09:07→23:18)
[2020-09-08] MEDS: PANTOPRAZOLE 40 MG/10 ML VIAL IVP SCH (09:07)
--- NOTE | 2020-09-08 09:49 | P.PN ---
Subjective Progress Note Date: 09/08/20 This is a pleasant 80-year-old female with documented history of hypertension, hyperlipidemia, hypothyroidism, GERD, who lives in the [place] area. She presented to [facility] with symptoms of abdominal pain. Initially the patient thought she may have strained muscles in her abdomen from working outside. Computed tomography scan was performed which revealed acute cholecystitis. A cardiology consultation was requested for preoperative clearance. Patient denies any history of coronary artery disease. She does state that she gets a pressure and heaviness in her chest that comes and goes, she's been experiencing this off and on for several years. No more recently than usual. She denies any recent shortness of breath, no fever chills, no dizziness or lightheadedness, no palpitations. Patient states that she was working out in her garden the morning prior to going to [facility], when we asked her regarding her activity level she states that she is not very active at all because of back problems. Her EKG shows a sinus bradycardia with occasional PACs. White blood cell count 19.1, hemoglobin 11.2, platelet count 173, sodium on admission 123, potassium 3.3, 4.0 on subsequent draw, chloride 91, CO2 24, BUN 26, creatinine 1.6. AST and ALT are normal. The patient's home medications include Ambien 5 mg at bedtime, Paxil, metoprolol 12-1/2 twice a day , Synthroid 75 g daily, and Nexium. 09/08/2020 Patient seen and examined this morning, slept well through the night last night. Echocardiogram with Doppler study was reviewed which revealed an ejection fraction of 55-60%, mild to moderate MR with mild to moderate TR. Blood pressure 114/60 with a heart rate in the 60s, 96% on room air. White blood cell count 9.0, hemoglobin 9.5, platelet count 207. Sodium 132, potassium 4.0, BUN 12, creatinine 1.2. Objective - Vital Signs Vital signs: Vital Signs Temp 98.1 F 09/08/20 03:00 Pulse 63 09/08/20 03:00 Resp 14 09/08/20 03:00 BP 113/60 09/08/20 03:00 Pulse Ox 96 09/08/20 03:00 Intake & Output 09/07/20 09/08/20 09/08/20 18:59 06:59 18:59 Other: Voiding Method Toilet Diaper Incontinent # Voids 1 1 # Bowel Movements 1 - Exam PHYSICAL EXAMINATION: GENERAL: 80-year-old female in no acute distress at the time of my examination HEENT: Head is atraumatic, normocephalic. Pupils equal, round. Sclera anicteric. Conjunctiva are clear. Mucous membranes of the mouth are moist. Neck is supple. There is no elevated jugular venous pressure. No carotid bruit is heard. HEART EXAMINATION: Heart S1, S2 normal. No murmur or gallop heard. CHEST EXAMINATION: Lungs are clear to auscultation and precussion. No chest wall tenderness is noted on palpation or with deep breathing. ABDOMEN: Soft, mild tenderness in the right upper quadrant on palpation. Bowel sounds are heard. No organomegaly noted. EXTREMITIES: 2+ peripheral pulses with no evidence of peripheral edema and no calf tenderness noted. NEUROLOGIC patient is awake, alert and oriented 3 . - Labs CBC & Chem 7: 09/08/20 07:35 09/08/20 07:35 Labs: Abnormal Lab Results - Last 24 Hours (Table) 09/08/20 09/08/20 09/08/20 Range/Units 03:15 07:35 07:35 RBC 2.85 L (3.80-5.40) m/uL Hgb 9.5 L D (11.4-16.0) gm/dL Hct 29.2 L (34.0-46.0) % MCV 102.6 H (80.0-100.0) fL Lymphocytes # 0.8 L (1.0-4.8) k/uL Sodium 132 L (137-145) mmol/L Creatinine 1.12 H (0.52-1.04) mg/dL Glucose 113 H (74-99) mg/dL Total Protein 5.6 L (6.3-8.2) g/dL Albumin 2.8 L (3.5-5.0) g/dL Urine Protein 1+ H (Negative) Urine Blood Moderate H (Negative) Amorphous Sediment Rare H (None) /hpf Urine Bacteria Rare H (None) /hpf Assessment and Plan Plan: Assessment and plan #1 abdominal pain with evidence of acute cholecystitis #2 hyponatremia #3 hypokalemia #4 elevated creatinine #5 hypertension #6 hyperlipidemia, not on a statin #7 hypothyroidism #8 prior bowel resection #9 elevated white blood cell count Plan Echocardiogram with Doppler study was reviewed, revealed a normal left ventricular systolic function. Patient may proceed with gallbladder surgery today. We will make her a follow-up appointment post discharge with Dr. Zavala. Full cardiac workup as an outpatient. DNP note has been reviewed, I agree with a documented findings and plan of care. Patient was seen and examined.
--- NOTE | 2020-09-08 12:21 | P.PN ---
<ShayleeLeatha - Last Filed: 09/08/20 12:13> Subjective Progress Note Date: 09/08/20 CHIEF COMPLAINT: Abdominal pain HISTORY OF PRESENT ILLNESS: Patient has been followed for acute cholecystitis. She had ultrasound of the gallbladder Showing cholelithiasis. Gallbladder wall thickening is present. Her white count has normalized to 9. Sodium is showed improvementAnd is up to 132 hemoglobin 9.5. Patient does admit to having some right upper quadrant painwhile taking a deep breath. She denies any nausea or vomiting. She does experience early fullness after eating her lunch yesterday. Patient has had decrease in appetite and did not eat much of her lunch or dinner. Patient is afebrile. Patient seen and evaluated by cardiology and his moderate risk for surgery. Chest x-ray No acute pulmonary process. Hiatal hernia present. AST 23 ALT 14 Sodium 132 PHYSICAL EXAM: VITAL SIGNS: Reviewed GENERAL: Well-developed in no acute distress. HEENT: No sclera icterus. Extraocular movements grossly intact. Moist buccal mucosa. Head is atraumatic, normocephalic. Hears conversational speech. No nasal drainage. NECK: Supple without lymphadenopathy. CHEST: Non-labored respirations and equal bilateral excursions. CARDIOVASCULAR: Palpable 2+ radial pulses. ABDOMEN: Soft. Nondistended. Tenderness with palpation of the right upper quadrant MUSCULOSKELETAL: No clubbing or cyanosis. NEUROLOGIC: No focal or lateralizing signs. Cranial nerves II through XII grossly intact. PSYCH: Appropriate affect. Alert and oriented to person, place and time. SKIN: Well perfused. Good skin turgor. ASSESSMENT: 1. Acute cholecystitis 2. Hyponatremia 3. Hypokalemia Resolved 4. Depressive disorder PLAN: -patient scheduled for Robotic Cholecystectomy today, 09/08/[address] Gonzales -Keep patient nothing by mouth -Continue IV fluids -Continue IV antibiotics Physician Tax Auditor note has been reviewed by physician. Signing provider agrees with the documented findings, assessment, and plan of care. Objective - Vital Signs Vital signs: Vital Signs Temp 98.3 F 09/08/20 09:00 Pulse 55 L 09/08/20 09:00 Resp 18 09/08/20 09:00 BP 150/69 09/08/20 09:00 Pulse Ox 96 09/08/20 03:00 Intake & Output 09/07/20 09/08/20 09/08/20 18:59 06:59 18:59 Intake Total 300 Balance 300 Intake: Intake, IV Titration 300 Amount Piperacillin-Tazobactam 3 300 .375 gm In Sodium Chloride 0.9% 100 ml @ 25 mls/hr IVPB Q8HR [facility] Rx# :[id number] Oral 0 Other: Voiding Method Toilet Toilet Diaper Diaper Incontinent Incontinent # Voids 1 1 1 # Bowel Movements 1 - Labs CBC & Chem 7: 09/08/20 07:35 09/08/20 07:35 Labs: Abnormal Lab Results - Last 24 Hours (Table) 09/08/20 09/08/20 09/08/20 Range/Units 03:15 07:35 07:35 RBC 2.85 L (3.80-5.40) m/uL Hgb 9.5 L D (11.4-16.0) gm/dL Hct 29.2 L (34.0-46.0) % MCV 102.6 H (80.0-100.0) fL Lymphocytes # 0.8 L (1.0-4.8) k/uL Sodium 132 L (137-145) mmol/L Creatinine 1.12 H (0.52-1.04) mg/dL Glucose 113 H (74-99) mg/dL Total Protein 5.6 L (6.3-8.2) g/dL Albumin 2.8 L (3.5-5.0) g/dL Urine Protein 1+ H (Negative) Urine Blood Moderate H (Negative) Amorphous Sediment Rare H (None) /hpf Urine Bacteria Rare H (None) /hpf <Katie Gonzales N - Last Filed: 09/08/20 16:26> Subjective Patient seen and evaluated. CT of the abdomen pelvis reviewed from outside facility demonstrating large intrathoracic hiatal hernia. Patient is symptomatic from hiatal hernia with atypical chest pain including early satiety. Findings described to the patient's family. At this time, patient symptomatic from acute cholecystitis. We'll proceed with robotic cholecystectomy. Patient's elevated risk due to severe acute cholecystitis and pre-existing conditions. Objective - Vital Signs Vital signs: Vital Signs Temp 98.5 F 09/08/20 11:45 Pulse 61 09/08/20 15:28 Resp 20 10/16/20 15:28 BP 174/76 09/08/20 15:44 Pulse Ox 97 09/08/20 15:28 Intake & Output 09/07/20 09/08/20 09/08/20 18:59 06:59 18:59 Intake Total 350 Balance 350 Intake: IV 50 Intake, IV Titration 300 Amount Piperacillin-Tazobactam 3 300 .375 gm In Sodium Chloride 0.9% 100 ml @ 25 mls/hr IVPB Q8HR [facility] Rx# :[id number] Oral 0 Other: Voiding Method Toilet Toilet Diaper Diaper Incontinent Incontinent # Voids 1 1 1 # Bowel Movements 1 - Labs CBC & Chem 7: 09/08/20 07:35 09/08/20 07:35 Labs: Abnormal Lab Results - Last 24 Hours (Table) 09/08/20 09/08/20 09/08/20 Range/Units 03:15 07:35 07:35 RBC 2.85 L (3.80-5.40) m/uL Hgb 9.5 L D (11.4-16.0) gm/dL Hct 29.2 L (34.0-46.0) % MCV 102.6 H (80.0-100.0) fL Lymphocytes # 0.8 L (1.0-4.8) k/uL Sodium 132 L (137-145) mmol/L Creatinine 1.12 H (0.52-1.04) mg/dL Glucose 113 H (74-99) mg/dL Total Protein 5.6 L (6.3-8.2) g/dL Albumin 2.8 L (3.5-5.0) g/dL Urine Protein 1+ H (Negative) Urine Blood Moderate H (Negative) Amorphous Sediment Rare H (None) /hpf Urine Bacteria Rare H (None) /hpf
--- NOTE | 2020-09-08 14:13 | P.HPADDEND ---
H&P Addendum H&P Addendum Date: 09/08/20 Sodium has improved since admissio. WBC is improved. US and CT consistent with acute cholecystitis. Will proceed with cholecystectomy.
--- NOTE | 2020-09-08 14:17 | PN ---
PROGRESS NOTE DATE OF SERVICE: 09/08/2020 This is a 80-year-old woman who was admitted with acute cholecystitis, abdominal pain, also had multiple electrolyte abnormalities, which is being corrected at this time. No chest pain. No palpitations. No fever. PHYSICAL EXAMINATION: Alert and oriented x3. The pulse is 55, blood pressure 150/69, respiration 18, temperature 98.2, pulse ox 96% on room air. HEENT: Conjunctivae normal. NECK: No jugular venous distension. CARDIOVASCULAR SYSTEM: S1, S2, muffled. RESPIRATORY: Breath sounds diminished at the bases, a few scattered rhonchi, no crackles. ABDOMEN: Soft, nontender. No mass. LEGS: No edema, no swelling. NERVOUS SYSTEM: No focal deficits. LAB: Hemoglobin 9.5, sodium 132, potassium is 4, creatinine is 1.12. UA noted. ASSESSMENT: 1. Acute cholecystitis and abdominal pain. 2. Hyponatremia. 3. Hypokalemia, improved. 4. Increased creatinine with possible acute renal failure with acute tubular necrosis, prerenal renal failure, improving. 5. Possible chronic kidney disease stage 3, baseline. 6. Increased WBC. 7. Anemia. 8. Hypertension. 9. Hyperlipidemia. 10.History of hypothyroid. 11.History appendectomy. 12.History of bowel resection. 13.History of anxiety, depression. 14.NO CODE, NO CPR, NO VENT. RECOMMENDATION: Recommend to continue current medications, monitor symptomatic treatment, otherwise monitor electrolytes closely. DVT prophylaxis. Closely follow with Surgery. Further recommendations to follow. MMODL / IJN: [id number] /
[2020-09-08] MEDS ORDERED: BUPIVACAINE (PF) 0.25% 30 ML VIAL SQ ONE (14:45)
[2020-09-08] MEDS ORDERED: IV FLUID CONTINUATION 150 ML IV ONE (15:26)
[2020-09-08] MEDS ORDERED: LACTATED RINGERS 1,000 ML IV ONE ×2 (16:16→18:30)
[2020-09-08] MEDS ORDERED: PROPOFOL 10 MG/ML 20 ML VIAL IV ONE (16:20)
[2020-09-08] MEDS ORDERED: LIDOCAINE 1% INJ 10MG/ML (20 ML MDV) ONE (16:20)
[2020-09-08] MEDS ORDERED: GLYCOPYRROLATE 0.2 MG/ML 2 ML VIAL ONE (16:20)
[2020-09-08] MEDS ORDERED: HYDROmorphone (PF) 1 MG/ML ONE (16:20)
[2020-09-08] MEDS ORDERED: INDOCYANINE GREEN 25 MG VIAL IV ONE (16:20)
[2020-09-08] MEDS ORDERED: fentaNYL (PF) 50 MCG/ML 2 ML AMP ONE (16:20)
[2020-09-08] MEDS ORDERED: ESMOLOL 100 MG/10 ML VIAL ONE (16:20)
[2020-09-08] MEDS ORDERED: SUCCINYLCHOLINE CHLORIDE 100 MG/5 ML SYR IV ONE (16:20)
[2020-09-08] MEDS ORDERED: ROCURONIUM 10 MG/ML (10 ML VIAL) IV ONE (16:20)
[2020-09-08] MEDS ORDERED: NEOSTIGMINE 1 MG/ML 10 ML VIAL ONE (16:20)
--- NOTE | 2020-09-08 16:24 | P.PN ---
Progress Note - Text Progress Note Date: 09/08/20 Daughter is at bedside. Patient agreeable to proceed with surgery due to acute cholecystitis. Patient has changed to FULL CODE only for procedure and will be NO CODE upon completion of her procedure.
[2020-09-08] MEDS ORDERED: INDOCYANINE GREEN 25 MG VIAL IV STA (16:28)
[2020-09-08] MEDS ORDERED: ACETAMINOPHEN IV (For NPO) 1,000 MG in EMPTY BAG 1 BAG IVPB ONE (19:04)
[2020-09-08] MEDS ORDERED: ONDANSETRON 4 MG/2 ML VIAL IVP PRN (19:04)
--- NOTE | 2020-09-08 19:20 | P.OP ---
Date of Procedure: 09/08/20 Description of Procedure: SURGEON: JENNIFER WANG MD PREOPERATIVE DIAGNOSES: 1. Acute cholecystitis with sepsis 2. Symptomatic gallstones 3. Hypertensive heart disease 4. Abnormal EKG, premature atrial complexes 5. Depressive disorder 6. History of colectomy 7. Paraesophageal hiatal hernia 8. Atypical chest pain 9. Hypothyroidism 10. Pre-existing anemia POSTOPERATIVE DIAGNOSES: 1. Acute hemorrhagic gangrenous cholecystitis with cystic duct obstruction due to gallstones 2. Symptomatic gallstones 3. Hypertensive heart disease 4. Abnormal EKG, premature atrial complexes 5. Depressive disorder 6. History of colectomy 7. Paraesophageal hiatal hernia 8. Atypical chest pain 9. Hypothyroidism 10. Pre-existing anemia OPERATION: 1. Robotic-assisted da Gt Xi laparoscopic lysis of adhesions over 1 hour 2. Robotic-assisted da Gt Xi laparoscopic cholecystectomy, multiport with FIREFLY 3. Placement of round #19 Jose-Mcnamara drain, hepatic fossa ESTIMATED BLOOD LOSS: 100 mL. SPECIMENS REMOVED: Gallbladder. COMPLICATIONS: None. OPERATIVE FINDINGS: 1. Acute hemorrhagic gangrenous cholecystitis with hydrops and distended gallbladder 2. Indocyanine green confirms acute cholecystitis with lack of contrast in gallbladder 3. Common bile duct within normal limits, without dilation INDICATIONS: The patient is a 80 year-old female who presents with epigastric right upper quadrant pain, symptomatic gallstones, WBC over 19,000, and clinical features of acute cholecystitis with presentation of sepsis. Antibiotic management including pain management was prescribed to manage her cholecystitis. Cardiac risk assessment was performed prior to surgery. Surgical intervention with cholecystectomy was described. Robotic assisted laparoscopic approach was described. Benefits and risks of the procedure including but not limited to bleeding, infection, injury to the biliary tree was reviewed. Informed consent was obtained. DESCRIPTION OF PROCEDURE: Patient was brought to the operating room, placed in supine position. After general induction, the abdomen had been prepped and draped in standard sterile fashion. The robotic da Gt XI system was primed. After a timeout protocol was performed, the patient had been prepped and draped in standard sterile fashion. The patient was injected with indocyanine green. A 5 mm 0 degrees laparoscopic trocar entry was performed along the left upper quadrant. The abdomen insufflated to 15 mmHg pressure which was tolerated well. Diagnostic laparoscopy demonstrated no injury to bowel viscera or mesentery. The liver surface was unremarkable. A moderately distended gallbladder was identified adding complexity to the case. Next, two 8 mm robotic ports were placed along the right upper abdomen. The camera 8-mm port was maintained along the epigastrium. Another 8 mm port was placed along the left upper abdominal wall after exchanging the 5 mm port. Please note that the ports were placed at least 10 to 15 cm away from the target anatomy of the gallbladder. The robot was docked along the left lateral abdomen. The patient was repositioned in reverse Trendelenburg position at 21 with the right side up 70. Using a grasper for arm 3, a grasper for arm 4, including hook cautery for arm 1, the robotic system was docked and primed as described. Instruments were interchanged by the virtual assistant including hook cautery, Bovie cautery and clip appliers. Additional instruments including vessel sealer, robotic suction septic cleaner, robotic stapler were made available. I had sat at the console. The gallbladder was encased in surrounding tissue including the proximal transverse colon, omentum adding complexity to the case and requiring extensive lysis of adhesions using blunt and sharp dissection using vessel sealer including hook artery for over one hour. The gallbladder was reflected towards the dome of the liver. The gallbladder was moderately distended adding complexity to the case. Edema was found along the cystic triangle including infundibulum. Initial dissection was performed on the gallbladder infundibulum using indocyanine green to illuminate the cystic duct and common bile duct. Due to moderate distention of the infundibulum, dome down technique was performed removing the gallbladder from the hepatic fossa starting from the fundus towards the infundibulum. Using a sponge, the liver was reflected towards the diaphragm and starting at the gallbladder fundus, hook cautery was used between the liver and the gallbladder. The patient pre-existing easy bleeding from her skin incisions and from the liver bed requiring hemostatic agents such as fibular. As the gallbladder was dissected from the hepatic fossa, hemostasis was checked using vessel sealer along the posterior gallbladder. Next, indocyanine green was used to confirm the common bile duct as well as cystic duct. The entire gallbladder was without contrast consistent with acute cholecystitis. The infundibulum was retracted laterally away from the common bile duct. The left upper quadrant trocar was exchanged for a 12 mm robotic trocar. FIREFLY was used to identify the common bile duct. Robotic 45 mm green staple loads were fired across the infundibulum as the cystic duct and cystic structures were moderately edematous. Additionally, gallstone was impacted along the neck of the gallbladder. Bleeding along the liver bed was controlled and hemostatic agents. The abdomen was irrigated with normal saline solution of 1 L. Indocyanine green was used to confirm no bile leak from the staple line. Sponges were removed from the abdomen. The robot was undocked. I re-scrubbed into the case. A 10 mm Endo Catch bag was used to remove the gallbladder in total via the left upper quadrant incision after widening the incision. The specimen was removed from the abdominal cavity. Junaid May and 0 Vicryl was used to close the fascial defect of the left upper quadrant. A round #19 drain was placed along the right upper quadrant at the hepatic fossa and exited via the right lateral trocar. A drain stitch 2-0 nylon was placed. All pneumoperitoneum instruments were evacuated from the abdominal cavity. The incisions were cleansed using dilute hydrogen peroxide. The incisions were reapproximated using 4-0 Monocryl in an interrupted subcuticular fashion. Please note along the trocar sites, local anesthetic was placed as a field block prior to insertion of all instruments. Liquid glue was applied to the skin. Optifoam was placed along the ARMAND site for the left upper quadrant. At the end of the procedure needle, sponge, and instrument count had been verified correct by the assistant professor surgical technology. The patient was transferred to postanesthesia care unit in stable condition. Intraoperative films were shared with the patient's family who were pleased with the level of care.
[2020-09-08] MEDS: OXYBUTYNIN CHLORIDE 5 MG TAB PO SCH (20:54)
[2020-09-08] MEDS: METOPROLOL TARTRATE 25 MG TAB PO SCH ×2 (20:54→22:38)
[2020-09-08] MEDS: ZOLPIDEM 5 MG TAB PO SCH (22:37)
[2020-09-09] MEDS: PIPERACILLIN-TAZOBACTAM 3.375 GM in SODIUM CHLORIDE 0.9% 100 ML IVPB SCH ×4 (00:22→23:42)
[2020-09-09] MEDS: ACETAMINOPHEN IV (For NPO) 1,000 MG in EMPTY BAG 1 BAG IVPB SCH ×4 (01:02→19:27)
[2020-09-09] MEDS: HYDROmorphone 0.5 MG/0.5 ML SYRINGE IVP PRN ×2 (02:06→11:20)
[2020-09-09] MEDS: PARoxetine 20 MG TAB PO SCH (02:57)
[2020-09-09] MEDS: LEVOTHYROXINE 75 MCG TAB PO SCH (05:53)
[2020-09-09 07:05] LABS: Basophils % (A) 0 %; Eosinophils % (A) 0 %; HCT 30.8 % (34.0-46.0); HGB 9.8 gm/dL (11.4-16.0); Lymphocytes % (A) 12 %; MCH 33.1 pg (25.0-35.0); MCV 103.5 fL (80.0-100.0); Macrocytosis Slight; Mean Platelet Volume 7.1; Monocytes # (A) 0.5 k/uL (0-1.0); Monocytes % (A) 6 %; Neutrophils # (A) 6.4 k/uL (1.3-7.7); Neutrophils % (A) 79 %; Platelet Count 238 k/uL (150-450); RBC 2.98 m/uL (3.80-5.40); WBC 8.1 k/uL (3.8-10.6)
--- NOTE | 2020-09-09 07:54 | P.PN ---
Progress Note - Text Progress Note Date: 09/09/20 Patient's complaints of abdominal pain. She has some serosanguineous drainage from her ARMAND catheter. On exam vital signs are stable. Abdomen soft. Incision sites are clean dry tach. Status post robotic cystectomy for gangrenous cholecystitis. Patient will remain in the hospital today. She'll have supportive care.
[2020-09-09] MEDS: HEPARIN SODIUM,PORCINE 5,000 UNIT/ML 1 ML VIAL SQ SCH ×2 (08:53→21:44)
[2020-09-09] MEDS: METOPROLOL TARTRATE 25 MG TAB PO SCH (08:53)
[2020-09-09] MEDS: PANTOPRAZOLE 40 MG/10 ML VIAL IVP SCH (08:53)
[2020-09-09 09:08] LABS: African American GFR (CKD) 62.1 (60.0-200.0); Albumin 3.2 g/dL (3.80-4.90); Albumin/Globulin Ratio 1.45 (1.60-3.17); Anion Gap 9.4 mmol/L (4.00-12.00); Calcium 8.5 mg/dL (8.7-10.3); Carbon Dioxide 25.6 mmol/L (21.6-31.8); Globulin 2.2 g/dL (1.6-3.3); Magnesium 1.7 mg/dL (1.5-2.4); Non-African American GFR(CKD) 53.5 (60.0-200.0); Phosphorus 3.9 mg/dL (2.4-5.1); Potassium 3.7 mmol/L (3.5-5.5); Total Bilirubin 0.6 mg/dL (0.2-1.2); Total Protein 5.4 g/dL (6.2-8.2)
[2020-09-09] MEDS: SODIUM CHLORIDE 0.9% 1,000 ML IV SCH ×2 (10:30→21:11)
[2020-09-09] MEDS: OXYBUTYNIN CHLORIDE 5 MG TAB PO SCH (10:43)
[2020-09-09] MEDS ORDERED: Potassium Replacement Protocol 1 EACH MISC MISCELLANE PRN (10:47)
[2020-09-09] MEDS ORDERED: Magnesium Replacement Protocol 1 EACH MISC MISCELLANE PRN (10:48)
[2020-09-09] MEDS ORDERED: POTASSIUM CHLORIDE ER 20 MEQ TAB.ER PO SCH (11:00)
[2020-09-09] MEDS: MAGNESIUM SULFATE-D5W PMX 1 GM in DEXTROSE/WATER 1 100ML.BAG IVPB SCH ×2 (11:17→15:02)
[2020-09-09] MEDS ORDERED: SODIUM CHLORIDE 0.9% 500 ML 500 ML IV ONE ×2 (11:58→14:25)
--- NOTE | 2020-09-09 12:45 | XR ---
EXAMINATION TYPE: XR chest 1V portable DATE OF EXAM: 09/09/2020 COMPARISON: 09/07/2020 HISTORY: Fever and decreased blood pressure TECHNIQUE: Single frontal view of the chest is obtained. FINDINGS: There is a large hiatal hernia with cardiomegaly and bilateral subsegmental lower lobe inf iltrate. Tiny left effusion suspected. No overt failure or pneumothorax. Chronic arthropathy changes involving the bilateral shoulder greater on the right. IMPRESSION: 1. Cardiomegaly with large hiatal hernia and bibasilar infiltrate correlate for early pneumonia.
--- NOTE | 2020-09-09 15:14 | PN ---
PROGRESS NOTE DATE OF SERVICE: 09/09/2020 This 80-year-old woman was admitted with acute cholecystitis and abdominal pain underwent robotic assisted laparoscopic lysis of adhesions as well and laparoscopic cholecystectomy for acute hemorrhagic gangrenous cholecystitis with cystic duct obstruction due to gallstones. The patient had some minimal hypotension this morning. There is no history of fever, rigors. No history of headache. Chest x-ray was reviewed. Past medical history reviewed. REVIEW OF SYSTEMS: CARDIOVASCULAR SYSTEM: No angina or palpitations. RESPIRATION: As mentioned earlier. GI as mentioned earlier. : No hematuria. NERVOUS SYSTEM: No numbness or weakness. CURRENT MEDICATIONS: Reviewed and include: 1. Metoprolol 25 b.i.d. 2. Synthroid. 3. Lopressor. 4. Flagyl. 5. Ditropan. 6. Protonix. 7. Zosyn. 8. Doses are reviewed. PHYSICAL EXAMINATION: The patient is alert and oriented times three. Pulse 66, blood pressure 130/70, respirations 17, temperature 97.2, pulse ox 98% on room air. Blood pressure the last reading was 88/53. HEENT: Conjunctivae normal. NECK: No JVD. CARDIOVASCULAR: S1, S2 muffled. RESPIRATORY SYSTEM: Breath sounds diminished at the bases. No rhonchi. No crackles. ABDOMEN: Soft, nontender. LEGS are no edema. No swelling. NERVOUS SYSTEM: No focal deficits. LABS: WBC 8.2, hemoglobin 9.8, sodium 137, potassium 3.7, and BUN and creatinine ratio noted. Albumin also noted. ASSESSMENT: 1. Acute hemorrhagic gangrenous cholecystitis cystic obstruction due to gallstone, status post laparoscopic cholecystectomy. 2. Minimal transient hypotension. 3. Hyponatremia. 4. Hypokalemia, improved. 5. Increased creatinine with possible acute renal failure, acute tubular necrosis, prerenal renal failure, present on admission, improving. 6. Possible chronic kidney stage 3 baseline. 7. Increased WBC. 8. Anemia. 9. Hypertension. 10.Hyperlipidemia. 11.History of hypothyroidism. 12.History of appendectomy. 13.History of bowel resection. 14.History of anxiety, depression. 15.NO CODE, NO CPR, NO VENT. RECOMMENDATIONS AND DISCUSSION: I recommend to continue current medications, management and symptomatic treatment. Will recommend fluid bolus. Continue the broad-spectrum IV antibiotics. The cultures are negative so far. We will continue to monitor. I would also recommend troponin, 2D echo with Doppler also. We will closely follow with Surgery. Further recommendations to follow. MMODL / IJN: [id number] /
--- NOTE | 2020-09-09 17:36 | P.PN ---
Subjective Progress Note Date: 09/09/20 this is a 80-year-old female with history of hypertension, hyperlipidemia, GERD syndrome with a had a hernia. Patient was admitted with cholecystitis and underwent cholecystectomy laparoscopically. Patient was having some crampy abdominal discomfort and inability to void. Denied any chest pain or shortness of breath .seemed to be stressed out because she cannot urinate.because of discomfort, troponin levels were ordered. Patient was also mildly hypotensive. By the time I saw the patient, patient seemed to be mostly concerned about her bladder. Having some pain in the incisional area. Denied any chest pain. Troponin is mildly elevated. We are going to continue 2 more troponins. Get an EKG. I do not think patient is having an acute cardiac event at this time.. Doesn't appear to be in acute distress. Further recommendation will depend upon clinical course. Echo Cardigan prior to the surgery showed normal LV function. Chest x-ray showed large hiatal hernia Objective - Vital Signs Vital signs: Vital Signs Temp 98.6 F 09/09/20 12:31 Pulse 58 L 09/09/20 16:07 Resp 15 09/09/20 12:31 BP 108/68 09/09/20 16:07 Pulse Ox 95 09/09/20 12:31 Intake & Output 09/08/20 09/09/20 09/09/20 18:59 06:59 18:59 Intake Total 6567 038 5700 Output Total 100 1128 10 Balance 1500 -828 1290 Intake: IV 1300 300 Intake, IV Titration 300 1300 Amount ACETAMINOPHEN IV (For NPO 400 ) 1,000 mg In Empty Bag 1 bag @ 400 mls/hr IVPB ONCE ONE Rx#:[id number] Magnesium Sulfate-D5w Pmx 100 1 gm In Dextrose/Water 1 100ml.bag @ 100 mls/hr IVPB Q1H [facility] Rx#: [id number] Piperacillin-Tazobactam 3 300 .375 gm In Sodium Chloride 0.9% 100 ml @ 25 mls/hr IVPB Q8HR [facility] Rx# :[id number] Sodium Chloride 0.9% 1, 300 000 ml @ 75 mls/hr IV . [id number] [facility] Rx#:[id number] Sodium Chloride 0.9% 500 500 ml 500 ml @ 999 mls/hr IV .Q31M ONE Rx#:[id number] Oral 0 Output: Drainage 35 10 Abdomen 35 10 Urine 600 Straight 600 Post Void Residual 493 Estimated Blood Loss 100 Other: Voiding Method Toilet Toilet Toilet Diaper Diaper Diaper Incontinent Incontinent Incontinent # Voids 1 2 - Exam GENERAL EXAM: Patient is alert and oriented and doesn't appear to be in any acute distress HEENT: Normocephalic. Normal reaction of pupils, equal size, normal range of extraocular motion. No erythema or exudates in the throat. NECK: No masses, no nuchal rigidity. CHEST: No chest wall deformity. LUNGS: [Equal air entry with no crackles or wheeze.] HEART: [S1 and S2 normal with no audible mumurs or gallops. Regular rhythm, femorals equal on both sides..] ABDOMEN: postsurgical SKIN: No rashes CENTRAL NERVOUS SYSTEM: No focal deficits. EXTREMITIES: [No cyanosis, clubbing or edema. - Labs CBC & Chem 7: 09/09/20 06:26 09/09/20 06:26 Labs: Abnormal Lab Results - Last 24 Hours (Table) 09/09/20 09/09/20 09/09/20 Range/Units 06:26 06:26 14:44 RBC 2.98 L (3.80-5.40) m/uL Hgb 9.8 L (11.4-16.0) gm/dL Hct 30.8 L (34.0-46.0) % MCV 103.5 H (80.0-100.0) fL Est GFR (CKD-EPI)NonAf 53.5 L (60.0-200.0) BUN/Creatinine Ratio 10.00 L (12.00-20.00) Ratio Calcium 8.5 L (8.7-10.3) mg/dL Troponin I 0.350 H* (0.000-0.034) ng/mL Total Protein 5.4 L (6.2-8.2) g/dL Albumin 3.20 L (3.80-4.90) g/dL Albumin/Globulin Ratio 1.45 L (1.60-3.17) g/dL Assessment and Plan (1) Abdominal discomfort Current Visit: Yes Status: Acute Code(s): R10.9 - UNSPECIFIED ABDOMINAL PAIN SNOMED Code(s): 44647385 (2) Acute cholecystitis Current Visit: Yes Status: Acute Code(s): K81.0 - ACUTE CHOLECYSTITIS SNOMED Code(s): 05657889 (3) Troponin level elevated Current Visit: Yes Status: Acute Code(s): R77.8 - OTHER SPECIFIED ABNORMALITIES OF PLASMA PROTEINS SNOMED Code(s): 662243487 (4) Essential hypertension Current Visit: Yes Status: Acute Code(s): I10 - ESSENTIAL (PRIMARY) HYPERTENSION SNOMED Code(s): 79483751 Plan: continue to follow-up trend of the troponins. EKG. Continue to monitor her closely. Further recommendations depend upon the clinical course
[2020-09-09] MEDS: ZOLPIDEM 5 MG TAB PO SCH (21:44)
[2020-09-09] MEDS: METOPROLOL TARTRATE 12.5 MG TAB PO SCH (21:49)
[2020-09-10] MEDS: LEVOTHYROXINE 75 MCG TAB PO SCH (06:04)
--- NOTE | 2020-09-10 08:19 | P.PN ---
Progress Note - Text Progress Note Date: 09/10/20 Patient has complaints of abdominal pain. On exam her vital signs are stable. Abdomen soft. ARMAND drain has some serosanguineous drainage. Status post cholecystectomy. Patient will remain in the hospital today. She'll continue receive supportive care.
[2020-09-10] MEDS: PIPERACILLIN-TAZOBACTAM 3.375 GM in SODIUM CHLORIDE 0.9% 100 ML IVPB SCH ×2 (10:19→16:46)
[2020-09-10] MEDS: HEPARIN SODIUM,PORCINE 5,000 UNIT/ML 1 ML VIAL SQ SCH ×2 (10:20→22:06)
[2020-09-10] MEDS: PANTOPRAZOLE 40 MG/10 ML VIAL IVP SCH (10:20)
[2020-09-10] MEDS: METOPROLOL TARTRATE 12.5 MG TAB PO SCH (10:20)
[2020-09-10] MEDS: OXYBUTYNIN CHLORIDE 5 MG TAB PO SCH (10:21)
[2020-09-10] MEDS: TAMSULOSIN 0.4 MG CAP.ER.24H PO SCH (10:26)
--- NOTE | 2020-09-10 13:47 | P.PN ---
Subjective Progress Note Date: 09/10/20 this is a 80-year-old female with history of hypertension, hyperlipidemia, GERD syndrome with a had a hernia. Patient was admitted with cholecystitis and underwent cholecystectomy laparoscopically. Patient was having some crampy abdominal discomfort and inability to void. Denied any chest pain or shortness of breath .seemed to be stressed out because she cannot urinate.because of discomfort, troponin levels were ordered. Patient was also mildly hypotensive. By the time I saw the patient, patient seemed to be mostly concerned about her bladder. Having some pain in the incisional area. Denied any chest pain. Troponin is mildly elevated. We are going to continue 2 more troponins. Get an EKG. I do not think patient is having an acute cardiac event at this time.. Doesn't appear to be in acute distress. Further recommendation will depend upon clinical course. Echo Cardigan prior to the surgery showed normal LV function. Chest x-ray showed large hiatal hernia 09/10/2020: This patient with history of hypertension, GERD syndrome and hiatal hernia, he is status post cholecystectomy. Complaining of abdominal pain and some heaviness. Patient had EKG last night which showed normal sinus rhythm without any acute ST-T changes. Troponins are mildly elevated but pattern is not consistent with acute myocardial injury pattern. Blood pressure is running high. I'm going to start her on Norvasc 5 mg. Still having postsurgical pain. This should be managed bysurgical department. We'll continue to follow Objective - Vital Signs Vital signs: Vital Signs Temp 98.0 F 09/10/20 12:47 Pulse 69 09/10/20 12:47 Resp 15 09/10/20 12:47 BP 173/81 09/10/20 12:47 Pulse Ox 98 09/10/20 12:47 Intake & Output 09/09/20 09/10/20 09/10/20 18:59 06:59 18:59 Intake Total 1300 1050 240 Output Total 340 645 Balance 960 405 240 Intake: Intake, IV Titration 1300 950 Amount ACETAMINOPHEN IV (For NPO 400 ) 1,000 mg In Empty Bag 1 bag @ 400 mls/hr IVPB ONCE ONE Rx#:[id number] ACETAMINOPHEN IV (For NPO 100 ) 1,000 mg In Empty Bag 1 bag @ 400 mls/hr IVPB Q6H [facility] Rx#:[id number] Magnesium Sulfate-D5w Pmx 100 1 gm In Dextrose/Water 1 100ml.bag @ 100 mls/hr IVPB Q1H [facility] Rx#: [id number] Piperacillin-Tazobactam 3 100 .375 gm In Sodium Chloride 0.9% 100 ml @ 25 mls/hr IVPB Q8HR [facility] Rx# :[id number] Sodium Chloride 0.9% 1, 300 750 000 ml @ 75 mls/hr IV . [id number] [facility] Rx#:[id number] Sodium Chloride 0.9% 500 500 ml 500 ml @ 999 mls/hr IV .Q31M ONE Rx#:[id number] Oral 100 240 Output: Drainage 10 45 Abdomen 10 45 Urine 330 600 Straight 330 Uretheral (Gibbs) 600 Other: Voiding Method Toilet Toilet Toilet Diaper Diaper Diaper Incontinent Incontinent Incontinent - Exam GENERAL EXAM: Patient is alert and oriented and doesn't appear to be in any acute distress HEENT: Normocephalic. Normal reaction of pupils, equal size, normal range of extraocular motion. No erythema or exudates in the throat. NECK: No masses, no nuchal rigidity. CHEST: No chest wall deformity. LUNGS: [Equal air entry with no crackles or wheeze.] HEART: [S1 and S2 normal with no audible mumurs or gallops. Regular rhythm, femorals equal on both sides..] ABDOMEN: postsurgical SKIN: No rashes CENTRAL NERVOUS SYSTEM: No focal deficits. EXTREMITIES: [No cyanosis, clubbing or edema. - Labs CBC & Chem 7: 09/09/20 06:26 09/09/20 06:26 Labs: Abnormal Lab Results - Last 24 Hours (Table) 09/09/20 09/09/20 09/10/20 Range/Units 14:44 23:16 04:45 Troponin I 0.350 H* 0.226 H* 0.173 H* (0.000-0.034) ng/mL Microbiology - Last 24 Hours (Table) 09/10/20 05:14 Urine Culture - Preliminary Urine,Catheterized Assessment and Plan (1) Abdominal discomfort Current Visit: Yes Status: Acute Code(s): R10.9 - UNSPECIFIED ABDOMINAL PAIN SNOMED Code(s): 02270053 (2) Acute cholecystitis Current Visit: Yes Status: Acute Code(s): K81.0 - ACUTE CHOLECYSTITIS SNOMED Code(s): 06244856 (3) Troponin level elevated Current Visit: Yes Status: Acute Code(s): R77.8 - OTHER SPECIFIED ABN ORMALITIES OF PLASMA PROTEINS SNOMED Code(s): 639965580 (4) Essential hypertension Current Visit: Yes Status: Acute Code(s): I10 - ESSENTIAL (PRIMARY) HYPERTENSION SNOMED Code(s): 32057821 Plan: Hemodynamically patient is stable except blood pressure running high. I'm going to add Norvasc 5 mg the EKG showed sinus rhythm without any acute changes, done yesterday. Troponins are mildly elevated but pattern is not consistent with acute coronary injury pattern We'll follow
[2020-09-10] MEDS: amLODIPine 5 MG TAB PO SCH (14:14)
[2020-09-10] MEDS: HYDROmorphone 0.5 MG/0.5 ML SYRINGE IVP PRN ×2 (14:26→22:12)
[2020-09-10] MEDS: SODIUM CHLORIDE 0.9% 1,000 ML IV SCH (16:46)
[2020-09-10] MEDS: METOPROLOL TARTRATE 50 MG TAB PO SCH (22:06)
[2020-09-10] MEDS: ZOLPIDEM 5 MG TAB PO SCH (22:19)
--- NOTE | 2020-09-11 00:04 | PN ---
PROGRESS NOTE DATE OF SERVICE: 09/10/2020 This 80-year-old woman who was admitted with acute hemorrhagic gangrenous cholecystitis and cystic obstruction had laparoscopic cholecystectomy. The patient had minimal transient hypotension after the surgery. Further evaluation included chest x-ray showed cardiomegaly and large hiatal hernia. Otherwise, the labs showed a troponin elevated up to 0.35, indicating acute dxp-OO-lrsxnvu-elevation myocardial infarction. Cardiology has been consulted. A 2D echo with Doppler has been requested. Surgery is following the patient closely at this time. PAST MEDICAL HISTORY: Reviewed. REVIEW OF SYSTEMS: CARDIOVASCULAR SYSTEM: No angina or palpitations. RESPIRATORY SYSTEM: As mentioned earlier. GI: As mentioned earlier. : No dysuria. NERVOUS SYSTEM: No numbness or weakness. CURRENT MEDICATIONS: Current medications are reviewed and include: 1. Norvasc 5 mg p.o. daily. 2. Heparin 5000 b.i.d. 3. Dilaudid. 4. Synthroid. 5. Lopressor. 6. Replacement protocols. 7. Zofran. 8. Ditropan. 9. Protonix. 10.Zosyn. 11.Flomax. 12.Ambien. Doses are reviewed. PHYSICAL EXAMINATION: The patient is alert and oriented x3. Pulse 69, blood pressure 173/81, respiration 15, temperature 98 degrees, pulse ox 98% on 2 L. HEENT: Conjunctivae normal. NECK: No jugular venous distention. CARDIOVASCULAR: S1, S2 muffled. RESPIRATORY: Breath sounds diminished at the bases. No rhonchi, no crackles. ABDOMEN: Soft, status post surgery. LEGS: No edema, no swelling. NERVOUS SYSTEM: No focal deficits. LABS: WBC 8.1, hemoglobin 9.8, sodium 137, potassium 3.7. Creatinine noted. ASSESSMENT: 1. Acute hemorrhagic gangrenous cholecystitis with cystic obstruction due to gallstone, status post laparoscopic cholecystectomy. 2. Minimal transient hypotension postoperatively. 3. Elevated troponin up to 0.350, rule out acute ekz-HP-manxctq-elevation myocardial infarction. 4. Hyponatremia. 5. Hypokalemia, improved. 6. Increased creatinine with possible acute renal failure, acute tubular necrosis prerenal renal failure, present on admission, improving. 7. Possible chronic kidney disease stage 3 baseline. 8. Increased WBC. 9. Anemia. 10.Hypertension. 11.Hyperlipidemia. 12.History of hypothyroidism. 13.History of appendectomy. 14.History of bowel resection. 15.History of anxiety, depression. 16.NO CODE, NO CPR, NO VENT. RECOMMENDATIONS AND DISCUSSION: This 80-year-old woman presented with multiple complex medical issues. Recommend to continue the current medications, continues symptomatic treatment. Otherwise at this time, I would also recommend a 2D echo with Doppler, Cardiology consultation. Otherwise, we will increase the dose of metoprolol to 50 mg b.i.d. and continue to monitor. Otherwise, guarded prognosis. Continue with antibiotics. DVT prophylaxis. Further recommendations to follow. Incentive spirometry, Protonix. MMODL / IJN: [id number] /
[2020-09-11] MEDS: PIPERACILLIN-TAZOBACTAM 3.375 GM in SODIUM CHLORIDE 0.9% 100 ML IVPB SCH ×3 (00:43→17:11)
[2020-09-11] MEDS ORDERED: LEVOTHYROXINE 75 MCG TAB ONE (06:30)
[2020-09-11] MEDS: SODIUM CHLORIDE 0.9% 1,000 ML IV SCH ×2 (07:28→17:11)
[2020-09-11] MEDS: LEVOTHYROXINE 75 MCG TAB PO SCH (07:28)
[2020-09-11] MEDS: amLODIPine 5 MG TAB PO SCH (08:50)
[2020-09-11] MEDS: METOPROLOL TARTRATE 50 MG TAB PO SCH ×2 (08:50→23:05)
[2020-09-11] MEDS: HEPARIN SODIUM,PORCINE 5,000 UNIT/ML 1 ML VIAL SQ SCH ×2 (08:51→23:05)
[2020-09-11] MEDS: TAMSULOSIN 0.4 MG CAP.ER.24H PO SCH (08:51)
[2020-09-11] MEDS: OXYBUTYNIN CHLORIDE 5 MG TAB PO SCH (08:51)
[2020-09-11] MEDS: PANTOPRAZOLE 40 MG/10 ML VIAL IVP SCH (08:51)
[2020-09-11 13:09] LABS: Basophils % (A) 0 %; Eosinophils # (A) 0.2 k/uL (0-0.7); Eosinophils % (A) 2 %; HCT 30.2 % (34.0-46.0); HGB 9.6 gm/dL (11.4-16.0); Lymphocytes # (A) 0.8 k/uL (1.0-4.8); Lymphocytes % (A) 8 %; MCH 32.5 pg (25.0-35.0); MCHC 31.9 g/dL (31.0-37.0); Macrocytosis Slight; Mean Platelet Volume 7.2; Monocytes # (A) 0.4 k/uL (0-1.0); Monocytes % (A) 4 %; Neutrophils # (A) 8.5 k/uL (1.3-7.7); Neutrophils % (A) 84 %; Platelet Count 282 k/uL (150-450); RBC 2.96 m/uL (3.80-5.40); RDW 13.1 % (11.5-15.5); WBC 10.1 k/uL (3.8-10.6)
[2020-09-11 13:27] LABS: ALT 18 U/L (4-34); AST 25 U/L (14-36); African American GFR (CKD) 67 (>60 ml/min/1.73 sqM); Albumin 2.7 g/dL (3.5-5.0); Alkaline Phosphatase 94 U/L (38-126); Anion Gap 5 mmol/L; Blood Urea Nitrogen 9 mg/dL (7-17); Calcium 8.2 mg/dL (8.4-10.2); Carbon Dioxide 27 mmol/L (22-30); Chloride 98 mmol/L (98-107); Globulin 2.8 g/dL; Glucose 113 mg/dL (74-99); Non-African American GFR(CKD) 58 (>60 ml/min/1.73 sqM); Potassium 3.6 mmol/L (3.5-5.1); Sodium 130 mmol/L (137-145); Total Bilirubin 0.5 mg/dL (0.2-1.3); Total Protein 5.5 g/dL (6.3-8.2)
[2020-09-11] MEDS ORDERED: ACETAMINOPHEN TAB 500 MG TAB PO PRN (14:30)
--- NOTE | 2020-09-11 14:31 | P.PN ---
<Leatha June - Last Filed: 09/11/20 14:19> Subjective Progress Note Date: 09/11/20 CHIEF COMPLAINT: Abdominal pain HISTORY OF PRESENT ILLNESS: patient is status post robotic-assisted laparoscopic cholecystectomy and lysis of adhesions Postop day #3. Patient is still weak and not ambulating as much as she should. She did work with physical therapy today and they recommended discharge to subacute rehab. Patient has been cleared by cardiology for discharge. Patient did have some elevated troponins noted on 09/09 and 09/10. Evaluated by cardiologyand they felt that there was no evidence of acute coronary syndrome. Patient will have Gibbs catheter removed today. She is tolerating diet. She is passing gas. Denies any nausea or vomiting. Does report some abdominal pain. Also note that cardiology added N orvasc due to hypertension PHYSICAL EXAM: VITAL SIGNS: Reviewed GENERAL: Well-developed in no acute distress. HEENT: No sclera icterus. Extraocular movements grossly intact. Moist buccal mucosa. Head is atraumatic, normocephalic. Hears conversational speech. No nasal drainage. NECK: Supple without lymphadenopathy. CHEST: Non-labored respirations and equal bilateral excursions. CARDIOVASCULAR: Palpable 2+ radial pulses. ABDOMEN: Soft. Nondistended. Dressing clean dry and intact. ARMAND drain with sanguinous drainage MUSCULOSKELETAL: No clubbing or cyanosis. NEUROLOGIC: No focal or lateralizing signs. Cranial nerves II through XII grossly intact. PSYCH: Appropriate affect. Alert and oriented to person, place and time. SKIN: Well perfused. Good skin turgor. ASSESSMENT: 1. Acute hemorrhagic gangrenous cholecystitis with cystic duct obstruction due to gallstones Status post Robotic-assisted da Gt Xi laparoscopic lysis of adhesions over 1 hour, Robotic-assisted da Gt Xi laparoscopic cholecystectomy And Placement of round #19 Jose-Mcnamara drain 2. Symptomatic gallstones 3. Hypertensive heart disease 4. Abnormal EKG, premature atrial complexes 5. Depressive disorder 6. History of colectomy 7. Paraesophageal hiatal hernia 8. Atypical chest pain 9. Hypothyroidism 10. Pre-existing anemia PLAN: -Consult social work for ECF placement -Discontinued Ditropan -Discontinue Gibbs catheter -continue Flomax -Anticipate discharge to ECF possibly tomorrow. Patient requires an insurance prior authorization -Continue low-fat diet -Add Tylenol as needed for pain -Continue GI and DVT prophylaxis Physician Certified Athletic Trainer note has been reviewed by physician. Signing provider agrees with the documented findings, assessment, and plan of care. Objective - Vital Signs Vital signs: Vital Signs Temp 98.4 F 09/11/20 13:00 Pulse 60 09/11/20 13:00 Resp 20 09/11/20 13:00 BP 168/82 09/11/20 13:00 Pulse Ox 93 L 09/11/20 13:00 Intake & Output 09/10/20 09/11/20 09/11/20 18:59 06:59 18:59 Intake Total 1280 225 Output Total 900 3130 Balance 380 -2905 Intake: Intake, IV Titration 640 225 Amount Sodium Chloride 0.9% 1, 640 225 000 ml @ 75 mls/hr IV . [id number] [facility] Rx#:[id number] Oral 640 Output: Drainage 30 Abdomen 30 Urine 900 3100 Other: Voiding Method Indwelling Catheter Indwelling Catheter Indwelling Catheter # Voids 2 - Labs CBC & Chem 7: 09/11/20 12:47 09/11/20 12:47 Labs: Abnormal Lab Results - Last 24 Hours (Table) 09/11/20 09/11/20 Range/Units 12:47 12:47 RBC 2.96 L (3.80-5.40) m/uL Hgb 9.6 L (11.4-16.0) gm/dL Hct 30.2 L (34.0-46.0) % MCV 102.0 H (80.0-100.0) fL Neutrophils # 8.5 H (1.3-7.7) k/uL Lymphocytes # 0.8 L (1.0-4.8) k/uL Sodium 130 L (137-145) mmol/L Glucose 113 H (74-99) mg/dL Calcium 8.2 L (8.4-10.2) mg/dL Total Protein 5.5 L (6.3-8.2) g/dL Albumin 2.7 L (3.5-5.0) g/dL Microbiology - Last 24 Hours (Table) 09/10/20 05:14 Urine Culture - Final Urine,Catheterized 09/09/20 14:44 Blood Culture - Preliminary Blood No Growth after 24 hours <Katie Gonzales - Last Filed: 09/11/20 19:50> Subjective Patient seen and evaluated with above. She reports that her abdominal pain primarily from the left upper quadrant incision which is to be expected. She does also report mild soreness along the right upper quadrant. ARMAND is serosanguineous. No evidence of bile. LFTs are within normal limits. Patient presented with pre-existing hyponatremia. Per cardiology, she stable. Previous echo performed prior to surgery. Patient wishes to go home. Assessment for rehab with social work consultation pending. Objective - Vital Signs Vital signs: Vital Signs Temp 98.4 F 09/11/20 13:00 Pulse 60 09/11/20 13:00 Resp 20 09/11/20 13:00 BP 168/82 09/11/20 13:00 Pulse Ox 93 L 09/11/20 13:00 Intake & Output 09/11/20 09/11/20 09/12/20 06:59 18:59 06:59 Intake Total 225 600 Output Total 3130 Balance -2905 600 Intake: Intake, IV Titration 225 600 Amount Sodium Chloride 0.9% 1, 225 600 000 ml @ 75 mls/hr IV . [id number] [facility] Rx#:[id number] Output: Drainage 30 Abdomen 30 Urine 3100 Other: Voiding Method Indwelling Catheter Toilet # Voids 2 - Labs CBC & Chem 7: 09/11/20 12:47 09/11/20 12:47 Labs: Abnormal Lab Results - Last 24 Hours (Table) 09/11/20 09/11/20 Range/Units 12:47 12:47 RBC 2.96 L (3.80-5.40) m/uL Hgb 9.6 L (11.4-16.0) gm/dL Hct 30.2 L (34.0-46.0) % MCV 102.0 H (80.0-100.0) fL Neutrophils # 8.5 H (1.3-7.7) k/uL Lymphocytes # 0.8 L (1.0-4.8) k/uL Sodium 130 L (137-145) mmol/L Glucose 113 H (74-99) mg/dL Calcium 8.2 L (8.4-10.2) mg/dL Total Protein 5.5 L (6.3-8.2) g/dL Albumin 2.7 L (3.5-5.0) g/dL Microbiology - Last 24 Hours (Table) 09/09/20 14:44 Blood Culture - Preliminary Blood No Growth after 48 hours 09/10/20 05:14 Urine Culture - Final Urine,Catheterized
--- NOTE | 2020-09-11 14:48 | CDI ---
Documentation Clarification Form Date: 09/11/2020 02:20:44 PM From: Dimple Mayorga RN CCDS Admit Date: 09/08/2020 10:37:00 AM Patient Name: Stephanie Vazquez Visit Number: [id number] Discharge Date: ATTENTION: The Clinical Documentation Specialists (CDI) and [facility] Coding Staff appreciate your assistance in clarifying documentation. Please respond to the clarification below the line at the bottom and electronically sign. The CDI & [facility] Coding staff will review the response and follow-up if needed. Please note: Queries are made part of the Legal Health Record. If you have any questions, please contact the author of this message via ITS. Dr. Katie Gonzales Sepsis was documented in the Procedure note Wbc over 19,000 and clinical features of acute cholecystitis with presentation of sepsis. 09/08 but is not noted in previous or subsequent documentation. History/Risk Factors: 80-year-old female presents to the ED with abdominal pain sent to [facility] from [place] for inflammation surrounding the gallbladder extending into the pancreatitis head concerning for acute cholecystitis. Medical History: Gerd/reflux, HLD, HTN and Anemia Clinical Indicators: 09/08 Preoperative Diagnosis in Procedure Note: Acute cholecystitis with sepsis. Postoperative Diagnosis in Procedure Note: Acute hemorrhagic gangrenous cholecystitis with cystic duct obstruction due to gallstones. 09/06 On admission VSS: B/P: 129/65; HR: 59; Temp: 98.0; RR: 18; SpO2: 95% RA 1015 Ultrasound Abd: Cholelithiasis. Gallbladder wall thickening 09/06 LABS: Wbc 19.1; Neutrophil 17.0, Treatment: 09/06 0.9ns 130cc/hr d/c 09/07; 09/07 0.9ns 75cc/hr d/c 09/11; 09/07 Piperacillin Ivpb Q8 hr; Please clarify if the Sepsis was Present/active on admission Treated and resolved this admission Ruled out Other, please specify Clinically unable to determine (Last Query Form Revision: July 2019) Treated and resolved this admission KM 09/11/20 19:35 MTDD
--- NOTE | 2020-09-11 14:49 | P.PN ---
Subjective Progress Note Date: 09/11/20 HISTORY OF PRESENT ILLNESS: Patient examined at the bedside. She is s/p cholecystectomy on 09/08/[address] Gonzales. Patient continues to complain of pain at surgical sites. She denies chest pain or pressure. Denies shortness of breath. She reports a nonproductive cough. Blood pressure remains elevated in the 160s. PHYSICAL EXAM: VITAL SIGNS: Reviewed. GENERAL: Well-developed in no acute distress. NECK: Supple. No JVD or thyromegaly LUNGS: Respirations even and unlabored. Lungs essentially clear to auscultation bilaterally. HEART: Regular rate and rhythm. S1 and S2 heard. EXTREMITIES: Normal range of motion. No clubbing or cyanosis. Peripheral pulses intact. No lower extremity edema ASSESSMENT: Acute cholecystitis Hypertension Abnormal troponins, no evidence of acute coronary syndrome PLAN: Increase activity as tolerated Obtain incentive spirometer for patient. Encouraged use 10 times an hour Continue to monitor blood pressure. Blood pressure remains elevated with systolics in the 160s today. However, patient continues to complain of significant abdominal pain from her recent surgery. If blood pressure continues to remain elevated, will make modifications to medication regimen. Nurse practitioner note has been reviewed by physician. Signing provider agrees with the documented findings, assessment, and plan of care. Objective - Vital Signs Vital signs: Vital Signs Temp 98.4 F 09/11/20 13:00 Pulse 60 09/11/20 13:00 Resp 20 09/11/20 13:00 BP 168/82 09/11/20 13:00 Pulse Ox 93 L 09/11/20 13:00 Intake & Output 09/10/20 09/11/20 09/11/20 18:59 06:59 18:59 Intake Total 1280 225 600 Output Total 900 3130 Balance 380 -2905 600 Intake: Intake, IV Titration 640 225 600 Amount Sodium Chloride 0.9% 1, 640 225 600 000 ml @ 75 mls/hr IV . [id number] [facility] Rx#:[id number] Oral 640 Output: Drainage 30 Abdomen 30 Urine 900 3100 Other: Voiding Method Indwelling Catheter Indwelling Catheter Indwelling Catheter # Voids 2 - Labs CBC & Chem 7: 09/11/20 12:47 09/11/20 12:47 Labs: Abnormal Lab Results - Last 24 Hours (Table) 09/11/20 09/11/20 Range/Units 12:47 12:47 RBC 2.96 L (3.80-5.40) m/uL Hgb 9.6 L (11.4-16.0) gm/dL Hct 30.2 L (34.0-46.0) % MCV 102.0 H (80.0-100.0) fL Neutrophils # 8.5 H (1.3-7.7) k/uL Lymphocytes # 0.8 L (1.0-4.8) k/uL Sodium 130 L (137-145) mmol/L Glucose 113 H (74-99) mg/dL Calcium 8.2 L (8.4-10.2) mg/dL Total Protein 5.5 L (6.3-8.2) g/dL Albumin 2.7 L (3.5-5.0) g/dL Microbiology - Last 24 Hours (Table) 09/10/20 05:14 Urine Culture - Final Urine,Catheterized 09/09/20 14:44 Blood Culture - Preliminary Blood No Growth after 24 hours
[2020-09-11] MEDS: ZOLPIDEM 5 MG TAB PO SCH (23:05)
--- NOTE | 2020-09-12 00:50 | PN ---
PROGRESS NOTE DATE OF SERVICE: 09/11/2020 This 80-year-old woman who was admitted after acute hemorrhagic gangrenous cholecystitis and surgery is being closely monitored at this time. The troponins elevated with possible acute non ST-segment myocardial infarction. Patient had transient hypotension post procedure. Cardiology following the patient closely. No chest pain. No palpitations. No fever. PHYSICAL EXAMINATION: The patient is alert and oriented x3. Pulse is 56, blood pressure 138/71, respirations 16, temperature 97.7, pulse ox 94% on room air. HEENT: Conjunctivae normal. NECK: No jugular venous distention. CARDIOVASCULAR: S1, S2 muffled. RESPIRATORY: Breath sounds diminished at the bases. No rhonchi, no crackles. ABDOMEN: Soft, status post surgery. LEGS: No edema, no swelling. NERVOUS SYSTEM: No focal deficits. LABS: WBC 10.1, hemoglobin 9.6, sodium 130. Troponins are noted. ASSESSMENT: 1. Acute hemorrhagic gangrenous cholecystitis with cystic duct obstruction due to gallstones, status post laparoscopic cholecystectomy. 2. Minimal transient hypotension postoperatively. 3. Elevated troponin up to 0.35, rule out acute zaj-ZC-qanwrlo-elevation myocardial infarction. 4. Hyponatremia. 5. Hypokalemia, improved. 6. Increased creatinine with possible acute renal failure acute tubular necrosis prerenal failure, present on admission, improving. 7. Possible chronic kidney disease, stage 3, baseline. 8. Increased WBC. 9. Anemia. 10.Hypertension. 11.Hyperlipidemia. 12.History of hypothyroidism. 13.History of appendectomy. 14.History of bowel resection. 15.History of anxiety, depression. 16.NO CODE, NO CPR, NO VENT. RECOMMENDATIONS AND DISCUSSION: I recommend to continue current medications, continue symptomatic treatment. Continue incentive spirometry, PT, OT evaluation, possible ECF rehab. Closely follow with Surgery. Further recommendations to follow. MMODL / IJN: [id number] /
[2020-09-12] MEDS: PIPERACILLIN-TAZOBACTAM 3.375 GM in SODIUM CHLORIDE 0.9% 100 ML IVPB SCH ×2 (01:20→08:15)
[2020-09-12 05:58] LABS: Basophils % (A) 0 %; Eosinophils # (A) 0.3 k/uL (0-0.7); Eosinophils % (A) 4 %; HCT 26.4 % (34.0-46.0); HGB 8.8 gm/dL (11.4-16.0); Lymphocytes # (A) 0.9 k/uL (1.0-4.8); Lymphocytes % (A) 10 %; MCH 33.7 pg (25.0-35.0); MCHC 33.3 g/dL (31.0-37.0); MCV 101.2 fL (80.0-100.0); Monocytes # (A) 0.3 k/uL (0-1.0); Monocytes % (A) 4 %; Neutrophils # (A) 6.7 k/uL (1.3-7.7); Neutrophils % (A) 79 %; Platelet Count 285 k/uL (150-450); RBC 2.61 m/uL (3.80-5.40); RDW 12.6 % (11.5-15.5); WBC 8.5 k/uL (3.8-10.6)
[2020-09-12] MEDS: LEVOTHYROXINE 75 MCG TAB PO SCH (06:26)
[2020-09-12] MEDS: SODIUM CHLORIDE 0.9% 1,000 ML IV SCH (07:10)
[2020-09-12] MEDS: HEPARIN SODIUM,PORCINE 5,000 UNIT/ML 1 ML VIAL SQ SCH ×2 (08:15→21:05)
[2020-09-12] MEDS: TAMSULOSIN 0.4 MG CAP.ER.24H PO SCH (08:15)
[2020-09-12] MEDS: amLODIPine 5 MG TAB PO SCH (08:15)
[2020-09-12] MEDS: METOPROLOL TARTRATE 50 MG TAB PO SCH ×2 (08:15→21:05)
[2020-09-12] MEDS ORDERED: PANTOPRAZOLE 40 MG TABLET PO SCH (09:00)
[2020-09-12 09:13] LABS: African American GFR (CKD) 70.5 (60.0-200.0); Calcium 8.2 mg/dL (8.7-10.3); Non-African American GFR(CKD) 60.8 (60.0-200.0); Potassium 3.3 mmol/L (3.5-5.5)
--- NOTE | 2020-09-12 11:13 | XR ---
EXAMINATION TYPE: XR chest 2V DATE OF EXAM: 09/12/2020 COMPARISON: 09/09/2020 HISTORY: 80-year-old female pneumonia TECHNIQUE: Frontal and lateral views FINDINGS: Heart mildly enlarged. Identified atelectasis of the right base. Large rounded density with air-fluid level projecting in the heart. No viviana consolidation or pleural effusion. Degenerative change of th e right shoulder with loose bodies in the subcoracoid recess.. IMPRESSION: 1. Mild cardiomegaly. 2. Redemonstrated large hiatal hernia. 3. Improvement in bibasilar opacities. A band of atelectasis at the right base remains.
[2020-09-12] MEDS ORDERED: POTASSIUM CHLORIDE ER 20 MEQ TAB.ER PO STA (12:36)
--- NOTE | 2020-09-12 12:56 | P.PN ---
Subjective Patient is status post a cholecystectomy for gangrenous cholecystitis. She'll complaining of abdominal pain. Had mildly elevated troponin secondary to sepsis patient is presently on antibiotics. Patient is status post cholecystectomy and patient is hyponatremic hypervolemic hyponatremia patient will be started on IV fluids and potassium is low as well which was replaced. Constitutional: Denied any fatigue denied any fever. Cardio vascular: denied any chest pain, palpitations Gastrointestinal denied any nausea vomiting Pulmonary: Denied any shortness of breath cough Neurologic denied any new focal deficits All inpatient medications were reviewed and appropriate changes in these medications as dictated in the interval history and assessment and plan. Objective - Vital Signs Vital signs: Vital Signs Temp 97.7 F 09/12/20 11:44 Pulse 55 L 09/12/20 11:44 Resp 18 09/12/20 11:44 BP 119/59 09/12/20 11:44 Pulse Ox 96 09/12/20 11:44 Intake & Output 09/11/20 09/12/20 09/12/20 18:59 06:59 18:59 Intake Total 600 Output Total 60 Balance 600 -60 Intake: Intake, IV Titration 600 Amount Sodium Chloride 0.9% 1, 600 000 ml @ 75 mls/hr IV . [id number] [facility] Rx#:[id number] Output: Drainage 60 Abdomen 60 Other: Voiding Method Toilet Toilet Toilet # Voids 1 1 # Bowel Movements 3 1 - Exam PHYSICAL EXAMINATION: GENERAL: The patient is alert and oriented x3, not in any acute distress. Well developed, well nourished. HEENT: Pupils are round and equally reacting to light. EOMI. No scleral icterus. No conjunctival pallor. Normocephalic, atraumatic. No pharyngeal erythema. No thyromegaly. CARDIOVASCULAR: S1 and S2 present. No murmurs, rubs, or gallops. PULMONARY: Chest is clear to auscultation, no wheezing or crackles. ABDOMEN: Soft, nontender, nondistended, normoactive bowel sounds. No palpable organomegaly. MUSCULOSKELETAL: No joint swelling or deformity. EXTREMITIES: No cyanosis, clubbing, or pedal edema. NEUROLOGICAL: Gross neurological examination did not reveal any focal deficits. SKIN: No rashes. - Labs CBC & Chem 7: 09/12/20 05:39 09/12/20 05:39 Labs: Abnormal Lab Results - Last 24 Hours (Table) 09/11/20 09/11/20 09/12/20 Range/Units 12:47 12:47 05:39 RBC 2.96 L 2.61 L (3.80-5.40) m/uL Hgb 9.6 L 8.8 L (11.4-16.0) gm/dL Hct 30.2 L 26.4 L (34.0-46.0) % MCV 102.0 H 101.2 H (80.0-100.0) fL Neutrophils # 8.5 H (1.3-7.7) k/uL Lymphocytes # 0.8 L 0.9 L (1.0-4.8) k/uL Sodium 130 L (137-145) mmol/L Potassium (3.5-5.5) mmol/L BUN/Creatinine Ratio (12.00-20.00) Ratio Glucose 113 H (74-99) mg/dL Calcium 8.2 L (8.4-10.2) mg/dL Total Protein 5.5 L (6.3-8.2) g/dL Albumin 2.7 L (3.5-5.0) g/dL 09/12/20 Range/Units 05:39 RBC (3.80-5.40) m/uL Hgb (11.4-16.0) gm/dL Hct (34.0-46.0) % MCV (80.0-100.0) fL Neutrophils # (1.3-7.7) k/uL Lymphocytes # (1.0-4.8) k/uL Sodium 134 L (137-145) mmol/L Potassium 3.3 L (3.5-5.5) mmol/L BUN/Creatinine Ratio 10.00 L (12.00-20.00) Ratio Glucose (74-99) mg/dL Calcium 8.2 L (8.4-10.2) mg/dL Total Protein (6.3-8.2) g/dL Albumin (3.5-5.0) g/dL Microbiology - Last 24 Hours (Table) 09/09/20 14:44 Blood Culture - Preliminary Blood No Growth after 48 hours 09/10/20 05:14 Urine Culture - Final Urine,Catheterized Assessment and Plan Plan: -Hypovolemic hyponatremia: We'll: Patient was started on IV fluids will recheck basic metabolic profile tomorrow -Acute cholecystitis status post cholecystectomy further management as per primary service -Mild troponin secondary to sepsis no evidence of acute coronary syndrome -Hyperlipidemia next and-hypertension next and-hypothyroidism -Gastroesophageal reflux She'll be started on IV fluids recheck the basic metabolic profile rest of the chronic medical problems patient will be continued on present medications. We'll continue to follow
--- NOTE | 2020-09-12 14:56 | P.PN ---
<RevaLeatha greenwood - Last Filed: 09/12/20 14:42> Subjective Progress Note Date: 09/12/20 CHIEF COMPLAINT: Abdominal pain HISTORY OF PRESENT ILLNESS: patient is status post robotic-assisted laparoscopic cholecystectomy and lysis of adhesions Postop day #4. Patientis still feeling weak. She worked with physical therapy. They are recommending subacute rehab. We are awaiting prior authorization from her insurance for subacute rehab. She reports that her abdominal pain is controlled. She denies any nausea vomiting. She is tolerating diet. She did have Diarrhea. She is urinating without difficulty. Stool was checked for C. diff and was negative. She does have some leaking from the ARMAND drain site. She is afebrile. White count 8.5 hemoglobin 8.8 sodium 134 potassium 3.3. Medicine did decrease patient's Norvasc to 2.5 mg daily PHYSICAL EXAM: VITAL SIGNS: Reviewed GENERAL: Well-developed in no acute distress. HEENT: No sclera icterus. Extraocular movements grossly intact. Moist buccal mucosa. Head is atraumatic, normocephalic. Hears conversational speech. No nasal drainage. NECK: Supple without lymphadenopathy. CHEST: Non-labored respirations and equal bilateral excursions. CARDIOVASCULAR: Palpable 2+ radial pulses. ABDOMEN: Soft. Nondistended. Dressing clean dry and intact. ARMAND drain with Serosanguineous drainage. MUSCULOSKELETAL: No clubbing or cyanosis. NEUROLOGIC: No focal or lateralizing signs. Cranial nerves II through XII grossly intact. PSYCH: Appropriate affect. Alert and oriented to person, place and time. SKIN: Well perfused. Good skin turgor. ASSESSMENT: 1. Acute hemorrhagic gangrenous cholecystitis with cystic duct obstruction due to gallstones Status post Robotic-assisted da Gt Xi laparoscopic lysis of adhesions over 1 hour, Robotic-assisted da Gt Xi laparoscopic cholecystectomy And Placement of round #19 Jose-Mcnamara drain 2. Symptomatic gallstones 3. Hypertensive heart disease 4. Abnormal EKG, premature atrial complexes 5. Depressive disorder 6. History of colectomy 7. Paraesophageal hiatal hernia 8. Atypical chest pain 9. Hypothyroidism 10. Pre-existing anemia 11. Pre-existing hiatal hernia with early satiety 12. Hypokalemia Likely Secondary to diarrhea 13. Pre-existing hyponatremia PLAN: -Anticipate discharge to [facility]CF once we get insurance prior authorization -Continue low-fat diet -Continue Tylenol as needed for pain -Replace potassium -Discontinue IV antibiotics -Discontinue IV fluids -Discontinue Protonix due to hypokalemia -Continue GI and DVT prophylaxis Physician Park Activities Coordinator note has been reviewed by physician. Signing provider agrees with the documented findings, assessment, and plan of care. Objective - Vital Signs Vital signs: Vital Signs Temp 97.7 F 09/12/20 11:44 Pulse 55 L 09/12/20 11:44 Resp 18 09/12/20 11:44 BP 119/59 09/12/20 11:44 Pulse Ox 96 09/12/20 11:44 Intake & Output 09/11/20 09/12/20 09/12/20 18:59 06:59 18:59 Intake Total 600 1660 Output Total 60 1550 Balance 600 -60 110 Intake: Intake, IV Titration 600 700 Amount Piperacillin-Tazobactam 3 100 .375 gm In Sodium Chloride 0.9% 100 ml @ 25 mls/hr IVPB Q8HR [facility] Rx# :[id number] Sodium Chloride 0.9% 1, 600 600 000 ml @ 75 mls/hr IV . [id number] [facility] Rx#:[id number] Oral 960 Output: Drainage 60 Abdomen 60 Urine 1550 Other: Voiding Method Toilet Toilet Toilet # Voids 1 4 # Bowel Movements 3 1 - Labs CBC & Chem 7: 09/12/20 05:39 09/12/20 05:39 Labs: Abnormal Lab Results - Last 24 Hours (Table) 09/12/20 09/12/20 Range/Units 05:39 05:39 RBC 2.61 L (3.80-5.40) m/uL Hgb 8.8 L (11.4-16.0) gm/dL Hct 26.4 L (34.0-46.0) % MCV 101.2 H (80.0-100.0) fL Lymphocytes # 0.9 L (1.0-4.8) k/uL Sodium 134 L (135-145) mmol/L Potassium 3.3 L (3.5-5.5) mmol/L BUN/Creatinine Ratio 10.00 L (12.00-20.00) Ratio Calcium 8.2 L (8.7-10.3) mg/dL Microbiology - Last 24 Hours (Table) 09/09/20 14:44 Blood Culture - Preliminary Blood No Growth after 48 hours 09/10/20 05:14 Urine Culture - Final Urine,Catheterized <Katie Gonzales - Last Filed: 09/12/20 20:30> Subjective She reports diarrhea is resolving. She feels stronger this evening. She reports that she is not strong enough to go home but would like rehab. Overall, she feels much better today compared to the rest of her hospitalization. Fluids heplocked for dilutional anemia. Antibiotics discontinued. She reports moderate improvement of her initial abdominal pain. "I strained my abdominal muscles" she reports prior to her admission. Overall, she has moderate improvement. Re-check labs with anticipated discharge to rehab. Objective - Vital Signs Vital signs: Vital Signs Temp 97.7 F 09/12/20 11:44 Pulse 55 L 09/12/20 16:00 Resp 18 09/12/20 16:00 BP 119/59 09/12/20 11:44 Pulse Ox 96 09/12/20 11:44 Intake & Output 09/12/20 09/12/20 09/13/20 06:59 18:59 06:59 Intake Total 2020 Output Total 60 1590 Balance -60 430 Intake: Intake, IV Titration 700 Amount Piperacillin-Tazobactam 3 100 .375 gm In Sodium Chloride 0.9% 100 ml @ 25 mls/hr IVPB Q8HR [facility] Rx# :[id number] Sodium Chloride 0.9% 1, 600 000 ml @ 75 mls/hr IV . [id number] [facility] Rx#:[id number] Oral 1320 Output: Drainage 60 40 Abdomen 60 40 Urine 1550 Other: Voiding Method Toilet Toilet # Voids 1 4 # Bowel Movements 3 1 - Labs CBC & Chem 7: 09/12/20 05:39 09/12/20 05:39 Labs: Abnormal Lab Results - Last 24 Hours (Table) 09/12/20 09/12/20 Range/Units 05:39 05:39 RBC 2.61 L (3.80-5.40) m/uL Hgb 8.8 L (11.4-16.0) gm/dL Hct 26.4 L (34.0-46.0) % MCV 101.2 H (80.0-100.0) fL Lymphocytes # 0.9 L (1.0-4.8) k/uL Sodium 134 L (135-145) mmol/L Potassium 3.3 L (3.5-5.5) mmol/L BUN/Creatinine Ratio 10.00 L (12.00-20.00) Ratio Calcium 8.2 L (8.7-10.3) mg/dL Microbiology - Last 24 Hours (Table) 09/09/20 14:44 Blood Culture - Preliminary Blood No Growth after 72 hours
[2020-09-12] MEDS: ZOLPIDEM 5 MG TAB PO SCH (21:05)
[2020-09-13] MEDS: LEVOTHYROXINE 75 MCG TAB PO SCH (05:57)
[2020-09-13] MEDS: TAMSULOSIN 0.4 MG CAP.ER.24H PO SCH (08:25)
[2020-09-13] MEDS: HEPARIN SODIUM,PORCINE 5,000 UNIT/ML 1 ML VIAL SQ SCH (08:25)
[2020-09-13] MEDS: amLODIPine 2.5 MG TAB PO SCH (08:25)
[2020-09-13] MEDS: METOPROLOL TARTRATE 50 MG TAB PO SCH ×2 (08:25→21:59)
[2020-09-13 09:46] LABS: African American GFR (CKD) 70.5 (60.0-200.0); Anion Gap 6.8 mmol/L (4.00-12.00); BUN/Creat Ratio 8.89 Ratio (12.00-20.00); Calcium 8.7 mg/dL (8.7-10.3); Carbon Dioxide 29.2 mmol/L (21.6-31.8); Non-African American GFR(CKD) 60.8 (60.0-200.0); Potassium 3.5 mmol/L (3.5-5.5)
[2020-09-13] MEDS ORDERED: POTASSIUM CHLORIDE ER 20 MEQ TAB.ER PO STA (12:24)
[2020-09-13] MEDS ORDERED: APIXABAN 5 MG TAB PO SCH (13:30)
[2020-09-13] MEDS ORDERED: METOPROLOL TARTRATE 25 MG TAB PO STA (13:31)
--- NOTE | 2020-09-13 14:35 | P.PN ---
<Saadia Marrero A - Last Filed: 09/13/20 14:25> Subjective Progress Note Date: 09/13/20 HISTORY OF PRESENT ILLNESS: Patient is s/p cholecystectomy on 09/08/[address] Gonzales. Notified by nursing this morning that patient was tachycardic. EKG was completed revealing atrial flutter. Patient denies previous history of atrial flutter. She denies chest pain or pressure. Denies shortness of breath. Denies palpitations. PHYSICAL EXAM: VITAL SIGNS: Reviewed. GENERAL: Well-developed in no acute distress. NECK: Supple. No JVD or thyromegaly LUNGS: Respirations even and unlabored. Lungs essentially clear to auscultation bilaterally. HEART: Irregular rate and rhythm. S1 and S2 heard. EXTREMITIES: Normal range of motion. No clubbing or cyanosis. Peripheral pulses intact. No lower extremity edema ASSESSMENT: Acute cholecystitis Hypertension Abnormal troponins, no evidence of acute coronary syndrome New-onset atrial flutter PLAN: Continue current dose of metoprolol Begin Eliquis 5mg PO BID Patient may be discharged home today from a cardiac standpoint. She is to follow up outpatient. Nurse practitioner note has been reviewed by physician. Signing provider agrees with the documented findings, assessment, and plan of care. Objective - Vital Signs Vital signs: Vital Signs Temp 98.1 F 09/13/20 11:49 Pulse 90 09/13/20 11:49 Resp 17 09/13/20 11:49 BP 107/70 09/13/20 11:49 Pulse Ox 93 L 09/13/20 11:49 Intake & Output 09/12/20 09/13/20 09/13/20 18:59 06:59 18:59 Intake Total 2019 Output Total 1590 20 Balance 430 -20 Intake: Intake, IV Titration 700 Amount Piperacillin-Tazobactam 3 100 .375 gm In Sodium Chloride 0.9% 100 ml @ 25 mls/hr IVPB Q8HR [facility] Rx# :[id number] Sodium Chloride 0.9% 1, 600 000 ml @ 75 mls/hr IV . [id number] [facility] Rx#:[id number] Oral 1320 Output: Drainage 40 20 Abdomen 40 20 Urine 1550 Other: Voiding Method Toilet Toilet # Voids 4 1 # Bowel Movements 1 - Labs CBC & Chem 7: 09/12/20 05:39 09/13/20 04:28 Labs: Abnormal Lab Results - Last 24 Hours (Table) 09/13/20 Range/Units 04:28 BUN 8.0 L (9.0-27.0) mg/dL BUN/Creatinine Ratio 8.89 L (12.00-20.00) Ratio Microbiology - Last 24 Hours (Table) 09/09/20 14:44 Blood Culture - Preliminary Blood No Growth after 72 hours <Juan Vega - Last Filed: 09/13/20 15:11> Subjective Patient with atrial flutter with increased heart rates. On exam patient's heart rate 90-95 bpm after increasing dose of metoprolol. Given elevated CHADSVASC, we discussed anticoagulation for stroke reduction. Patient agreeable and we will start Eliquis 5 mg by mouth twice a day. Patient denies any angina-type symptoms. We discussed option of continuing to titrate medications in the hospital however patient adamant she wants to go home. Patient appears stable for discharge home with close outpatient follow-up. Juan Vega D.O. Objective - Vital Signs Vital signs: Vital Signs Temp 98.1 F 09/13/20 11:49 Pulse 90 09/13/20 11:49 Resp 17 09/13/20 11:49 BP 107/70 09/13/20 11:49 Pulse Ox 93 L 09/13/20 11:49 Intake & Output 09/12/20 09/13/20 09/13/20 18:59 06:59 18:59 Intake Total 2020 Output Total 1590 20 Balance 430 -20 Intake: Intake, IV Titration 700 Amount Piperacillin-Tazobactam 3 100 .375 gm In Sodium Chloride 0.9% 100 ml @ 25 mls/hr IVPB Q8HR [facility] Rx# :[id number] Sodium Chloride 0.9% 1, 600 000 ml @ 75 mls/hr IV . [id number] [facility] Rx#:[id number] Oral 1320 Output: Drainage 40 20 Abdomen 40 20 Urine 1550 Other: Voiding Method Toilet Toilet # Voids 4 1 # Bowel Movements 1 - Labs CBC & Chem 7: 09/12/20 05:39 09/13/20 04:28 Labs: Abnormal Lab Results - Last 24 Hours (Table) 09/13/20 Range/Units 04:28 BUN 8.0 L (9.0-27.0) mg/dL BUN/Creatinine Ratio 8.89 L (12.00-20.00) Ratio Microbiology - Last 24 Hours (Table) 09/09/20 14:44 Blood Culture - Preliminary Blood No Growth after 72 hours
--- NOTE | 2020-09-13 15:11 | P.PN ---
Subjective Patient is status post a cholecystectomy for gangrenous cholecystitis. She'll complaining of abdominal pain. Had mildly elevated troponin secondary to sepsis patient is presently on antibiotics. Patient is status post cholecystectomy and patient is hyponatremic hypervolemic hyponatremia patient will be started on IV fluids and potassium is low as well which was replaced. 09/13/2020 Patient was tachycardic and patient is found to be in atrial flutter patient will start is on Eliquis at this time patient is being discharged on the same dose of metoprolol her tachycardia is most probably related to amlodipine and patient blood pressure is low as well amlodipine will be discontinued. Patient was cleared for discharge from cardiology perspective. Her heart rate is still high a contamination I'll give an additional dose of metoprolol. Constitutional: Denied any fatigue denied any fever. Cardio vascular: denied any chest pain, palpitations Gastrointestinal denied any nausea vomiting Pulmonary: Denied any shortness of breath cough Neurologic denied any new focal deficits All inpatient medications were reviewed and appropriate changes in these medications as dictated in the interval history and assessment and plan. Objective - Vital Signs Vital signs: Vital Signs Temp 98.1 F 09/13/20 11:49 Pulse 90 09/13/20 11:49 Resp 17 09/13/20 11:49 BP 107/70 09/13/20 11:49 Pulse Ox 93 L 09/13/20 11:49 Intake & Output 09/12/20 09/13/20 09/13/20 18:59 06:59 18:59 Intake Total 2019 Output Total 1590 20 Balance 430 -20 Intake: Intake, IV Titration 700 Amount Piperacillin-Tazobactam 3 100 .375 gm In Sodium Chloride 0.9% 100 ml @ 25 mls/hr IVPB Q8HR [facility] Rx# :[id number] Sodium Chloride 0.9% 1, 600 000 ml @ 75 mls/hr IV . [id number] [facility] Rx#:[id number] Oral 1320 Output: Drainage 40 20 Abdomen 40 20 Urine 1550 Other: Voiding Method Toilet Toilet # Voids 4 1 # Bowel Movements 1 - Exam PHYSICAL EXAMINATION: GENERAL: The patient is alert and oriented x3, not in any acute distress. Well developed, well nourished. HEENT: Pupils are round and equally reacting to light. EOMI. No scleral icterus. No conjunctival pallor. Normocephalic, atraumatic. No pharyngeal erythema. No thyromegaly. CARDIOVASCULAR: S1 and S2 present. No murmurs, rubs, or gallops. PULMONARY: Chest is clear to auscultation, no wheezing or crackles. ABDOMEN: Soft, nontender, nondistended, normoactive bowel sounds. No palpable organomegaly. MUSCULOSKELETAL: No joint swelling or deformity. EXTREMITIES: No cyanosis, clubbing, or pedal edema. NEUROLOGICAL: Gross neurological examination did not reveal any focal deficits. SKIN: No rashes. - Labs CBC & Chem 7: 09/12/20 05:39 09/13/20 04:28 Labs: Abnormal Lab Results - Last 24 Hours (Table) 09/13/20 Range/Units 04:28 BUN 8.0 L (9.0-27.0) mg/dL BUN/Creatinine Ratio 8.89 L (12.00-20.00) Ratio Microbiology - Last 24 Hours (Table) 09/09/20 14:44 Blood Culture - Preliminary Blood No Growth after 72 hours Assessment and Plan Plan: -Hypovolemic hyponatremia: For now with IV fluids -Acute cholecystitis status post cholecystectomy further management as per primary service -Mild troponin secondary to sepsis no evidence of acute coronary syndrome -New-onset atrial flutter flutter patient's beta kd dose was increased and patient is being discharged today. Patient was also started on Eliquis by cardiology -Hyperlipidemia -hypertension -hypothyroidism -Gastroesophageal reflux She'll be started on IV fluids recheck the basic metabolic profile rest of the c hronic medical problems patient will be continued on present medications. We'll continue to follow
--- NOTE | 2020-09-13 15:36 | P.PN ---
<Leatha June - Last Filed: 09/13/20 15:32> Subjective Progress Note Date: 09/13/20 CHIEF COMPLAINT: Abdominal pain HISTORY OF PRESENT ILLNESS: patient is status post robotic-assisted laparoscopic cholecystectomy and lysis of adhesions Postop day #5. Patient's is feeling better. She has been up and ambulating in the hallway. She is not feeling as weak. Her abdominal pain is controlled. She's had no further diarrhea. She is tolerating diet. She denies any nausea or vomiting. Unfortunately, this afternoon patient went into atrial flutter With rapid ventricular response. Patient was seen by cardiology and they have initially ordered Eliquis. Case discussed with cardiology nurse practitioner. Eliquis has been discontinued. She recommends starting the IV heparin around midnight tonight. Patient is af ebrile. PHYSICAL EXAM: VITAL SIGNS: Reviewed GENERAL: Well-developed in no acute distress. HEENT: No sclera icterus. Extraocular movements grossly intact. Moist buccal mucosa. Head is atraumatic, normocephalic. Hears conversational speech. No nasal drainage. NECK: Supple without lymphadenopathy. CHEST: Non-labored respirations and equal bilateral excursions. CARDIOVASCULAR: Palpable 2+ radial pulses. ABDOMEN: Soft. Nondistended. Dressing clean dry and intact. ARMAND drain with Serosanguineous drainage. MUSCULOSKELETAL: No clubbing or cyanosis. NEUROLOGIC: No focal or lateralizing signs. Cranial nerves II through XII grossly intact. PSYCH: Appropriate affect. Alert and oriented to person, place and time. SKIN: Well perfused. Good skin turgor. ASSESSMENT: 1. Acute hemorrhagic gangrenous cholecystitis with cystic duct obstruction due to gallstones Status post Robotic-assisted da Gt Xi laparoscopic lysis of adhesions over 1 hour, Robotic-assisted da Gt Xi laparoscopic cholecystectomy And Placement of round #19 Jose-Mcnamara drain 2. Symptomatic gallstones 3. Hypertensive heart disease 4. Abnormal EKG, premature atrial complexes 5. Depressive disorder 6. History of colectomy 7. Paraesophageal hiatal hernia 8. Atypical chest pain 9. Hypothyroidism 10. Pre-existing anemia 11. Pre-existing hiatal hernia with early satiety 12. Hypokalemia Likely Secondary to diarrhea 13. Pre-existing hyponatremia 14. New onset of atrial flutter PLAN: -Discontinue Eliquis and place patient on IV heparin -Continue low-fat diet -Continue Tylenol as needed for pain -Replace potassium -Patient is not ready for discharge. Need to monitor patient for any signs of bleeding or drop of hemoglobin due to starting anticoagulation -Recheck CBC today and tomorrow Physician Job Spotter note has been reviewed by physician. Signing provider agrees with the documented findings, assessment, and plan of care. Objective - Vital Signs Vital signs: Vital Signs Temp 98.1 F 09/13/20 11:49 Pulse 90 09/13/20 11:49 Resp 17 09/13/20 11:49 BP 107/70 09/13/20 11:49 Pulse Ox 93 L 09/13/20 11:49 Intake & Output 09/12/20 09/13/20 09/13/20 18:59 06:59 18:59 Intake Total 2020 Output Total 1590 20 Balance 430 -20 Intake: Intake, IV Titration 700 Amount Piperacillin-Tazobactam 3 100 .375 gm In Sodium Chloride 0.9% 100 ml @ 25 mls/hr IVPB Q8HR [facility] Rx# :[id number] Sodium Chloride 0.9% 1, 600 000 ml @ 75 mls/hr IV . [id number] [facility] Rx#:[id number] Oral 1320 Output: Drainage 40 20 Abdomen 40 20 Urine 1550 Other: Voiding Method Toilet Toilet # Voids 4 1 # Bowel Movements 1 - Labs CBC & Chem 7: 09/12/20 05:39 09/13/20 04:28 Labs: Abnormal Lab Results - Last 24 Hours (Table) 09/13/20 Range/Units 04:28 BUN 8.0 L (9.0-27.0) mg/dL BUN/Creatinine Ratio 8.89 L (12.00-20.00) Ratio Microbiology - Last 24 Hours (Table) 09/09/20 14:44 Blood Culture - Preliminary Blood No Growth after 72 hours <Katie Gonzales - Last Filed: 09/13/20 19:27> Subjective Patient developed new aflutter. "I don't know what happened! I was laying down. She was listening to my heart and told me it was fast. I didn't feel anything." Upon further history she reports having occasional chest pressure in the past prior to admission which she has dismissed. ARMAND is serous. Appropriate tenderness from incisions. Hold Eliquis due to recent hemorrhagic cholecystitis. Ok with heparin. Re-check Hgb while on blood thinners. Objective - Vital Signs Vital signs: Vital Signs Temp 98.1 F 09/13/20 11:49 Pulse 110 H 09/13/20 16:00 Resp 17 09/13/20 16:00 BP 121/74 09/13/20 14:00 Pulse Ox 93 L 09/13/20 11:49 Intake & Output 09/13/20 09/13/20 09/14/20 06:59 18:59 06:59 Output Total 20 1590 Balance -20 -1590 Output: Drainage 20 40 Abdomen 20 40 Urine 1550 Other: Voiding Method Toilet Toilet # Voids 1 2 - Labs CBC & Chem 7: 09/13/20 15:00 09/13/20 04:28 Labs: Abnormal Lab Results - Last 24 Hours (Table) 09/13/20 09/13/20 Range/Units 04:28 15:00 RBC 2.88 L (3.80-5.40) m/uL Hgb 9.7 L (11.4-16.0) gm/dL Hct 29.5 L (34.0-46.0) % MCV 102.3 H (80.0-100.0) fL BUN 8.0 L (9.0-27.0) mg/dL BUN/Creatinine Ratio 8.89 L (12.00-20.00) Ratio Microbiology - Last 24 Hours (Table) 09/09/20 14:44 Blood Culture - Preliminary Blood No Growth after 96 hours
[2020-09-13 15:48] LABS: HCT 29.5 % (34.0-46.0); HGB 9.7 gm/dL (11.4-16.0); MCH 33.7 pg (25.0-35.0); MCHC 32.9 g/dL (31.0-37.0); MCV 102.3 fL (80.0-100.0); Macrocytosis Slight; Mean Platelet Volume 6.8; Platelet Count 378 k/uL (150-450); RBC 2.88 m/uL (3.80-5.40); WBC 7.3 k/uL (3.8-10.6)
[2020-09-13] MEDS ORDERED: HEPARIN SODIUM,PORCINE 5,000 UNIT/ML 1 ML VIAL IV PRN (16:00)
[2020-09-13 18:08] LABS: Prothrombin Time 10.3 sec (9.0-12.0)
[2020-09-13] MEDS: ZOLPIDEM 5 MG TAB PO SCH (21:59)
[2020-09-14] MEDS ORDERED: HEPARIN SOD,PORK IN 0.45% NACL 25,000 UNIT in 0.45% NACL 1 250ML.BAG IV SCH (00:01)
[2020-09-14] MEDS ORDERED: HEPARIN SODIUM,PORCINE 5,000 UNIT/ML 1 ML VIAL IV ONE (00:01)
[2020-09-14] MEDS: LEVOTHYROXINE 75 MCG TAB PO SCH (05:34)
[2020-09-14 06:09] LABS: Basophils % (A) 0 %; Eosinophils # (A) 0.3 k/uL (0-0.7); Eosinophils % (A) 4 %; HCT 27.8 % (34.0-46.0); HGB 8.8 gm/dL (11.4-16.0); Lymphocytes # (A) 1.9 k/uL (1.0-4.8); Lymphocytes % (A) 24 %; MCH 32.5 pg (25.0-35.0); MCHC 31.8 g/dL (31.0-37.0); MCV 102.1 fL (80.0-100.0); Macrocytosis Slight; Mean Platelet Volume 6.8; Monocytes # (A) 0.4 k/uL (0-1.0); Monocytes % (A) 5 %; Neutrophils # (A) 5.2 k/uL (1.3-7.7); Neutrophils % (A) 64 %; Platelet Count 389 k/uL (150-450); RBC 2.73 m/uL (3.80-5.40); RDW 13.4 % (11.5-15.5); WBC 8.1 k/uL (3.8-10.6)
[2020-09-14] MEDS: TAMSULOSIN 0.4 MG CAP.ER.24H PO SCH (08:25)
[2020-09-14] MEDS: METOPROLOL TARTRATE 50 MG TAB PO SCH (08:25)
[2020-09-14] MEDS: amLODIPine 2.5 MG TAB PO SCH (08:25)
[2020-09-14 09:34] LABS: African American GFR (CKD) 70.5 (60.0-200.0); Anion Gap 6.8 mmol/L (4.00-12.00); Calcium 8.5 mg/dL (8.7-10.3); Carbon Dioxide 32.2 mmol/L (21.6-31.8); Non-African American GFR(CKD) 60.8 (60.0-200.0); Potassium 3.8 mmol/L (3.5-5.5)
[2020-09-14 11:28] VITALS: PULSE 56
[2020-09-14 11:30] VITALS: BMI 26.5
[2020-09-14 11:50] VITALS: BP 129/65; RESP 17; TEMP 98.2
[2020-09-14] MEDS ORDERED: CALCIUM CARBONATE 500 MG CHEWABLE PO PRN (11:52)
--- NOTE | 2020-09-14 14:17 | P.PN ---
Subjective Patient is status post a cholecystectomy for gangrenous cholecystitis. She'll complaining of abdominal pain. Had mildly elevated troponin secondary to sepsis patient is presently on antibiotics. Patient is status post cholecystectomy and patient is hyponatremic hypervolemic hyponatremia patient will be started on IV fluids and potassium is low as well which was replaced. 09/13/2020 Patient was tachycardic and patient is found to be in atrial flutter patient will start is on Eliquis at this time patient is being discharged on the same dose of metoprolol her tachycardia is most probably related to amlodipine and patient blood pressure is low as well amlodipine will be discontinued. Patient was cleared for discharge from cardiology perspective. Her heart rate is still high a contamination I'll give an additional dose of metoprolol. 09/14/2020 Patient heart rate is well controlled. Patient can be discharged from medical perspective. I believe patient is appropriate to be started on anticoagulation with Eliquis, if there is a concern for the bleeding the neck was can be held for 2-3 days before starting. Constitutional: Denied any fatigue denied any fever. Cardio vascular: denied any chest pain, palpitations Gastrointestinal denied any nausea vomiting Pulmonary: Denied any shortness of breath cough Neurologic denied any new focal deficits All inpatient medications were reviewed and appropriate changes in these medications as dictated in the interval history and assessment and plan. Objective - Vital Signs Vital signs: Vital Signs Temp 98.2 F 09/14/20 11:49 Pulse 56 L 09/14/20 11:49 Resp 17 09/14/20 11:49 BP 129/65 09/14/20 11:49 Pulse Ox 97 09/14/20 11:49 Intake & Output 09/13/20 09/14/20 09/14/20 18:59 06:59 18:59 Intake Total 50.215 Output Total 1590 51 Balance -1590 50.215 -51 Weight 68.039 kg Intake: Intake, IV Titration 50.215 Amount Heparin Sod,Pork in 0.45% 50.215 NaCl 25,000 unit In 0.45 % NaCl 1 250ml.bag @ 12 UNITS/KG/HR 8.165 mls/hr IV .Q24H [facility] Rx#: [id number] Output: Drainage 40 51 Abdomen 40 51 Urine 1550 Other: Voiding Method Toilet Toilet # Voids 2 2 - Exam PHYSICAL EXAMINATION: GENERAL: The patient is alert and oriented x3, not in any acute distress. Well developed, well nourished. HEENT: Pupils are round and equally reacting to light. EOMI. No scleral icterus. No conjunctival pallor. Normocephalic, atraumatic. No pharyngeal erythema. No thyromegaly. CARDIOVASCULAR: S1 and S2 present. No murmurs, rubs, or gallops. PULMONARY: Chest is clear to auscultation, no wheezing or crackles. ABDOMEN: Soft, nontender, nondistended, normoactive bowel sounds. No palpable organomegaly. MUSCULOSKELETAL: No joint swelling or deformity. EXTREMITIES: No cyanosis, clubbing, or pedal edema. NEUROLOGICAL: Gross neurological examination did not reveal any focal deficits. SKIN: No rashes. - Labs CBC & Chem 7: 09/14/20 05:46 09/14/20 05:46 Labs: Abnormal Lab Results - Last 24 Hours (Table) 09/13/20 09/14/20 09/14/20 Range/Units 15:00 05:46 05:46 RBC 2.88 L 2.73 L (3.80-5.40) m/uL Hgb 9.7 L 8.8 L (11.4-16.0) gm/dL Hct 29.5 L 27.8 L (34.0-46.0) % MCV 102.3 H 102.1 H (80.0-100.0) fL APTT (22.0-30.0) sec Carbon Dioxide 32.2 H (21.6-31.8) mmol/L BUN/Creatinine Ratio 10.00 L (12.00-20.00) Ratio Calcium 8.5 L (8.7-10.3) mg/dL 09/14/20 Range/Units 05:46 RBC (3.80-5.40) m/uL Hgb (11.4-16.0) gm/dL Hct (34.0-46.0) % MCV (80.0-100.0) fL APTT 44.8 H (22.0-30.0) sec Carbon Dioxide (21.6-31.8) mmol/L BUN/Creatinine Ratio (12.00-20.00) Ratio Calcium (8.7-10.3) mg/dL Microbiology - Last 24 Hours (Table) 09/09/20 14:44 Blood Culture - Preliminary Blood No Growth after 96 hours Assessment and Plan Plan: -Acute cholecystitis status post cholecystectomy further management as per primary service -Mild troponin secondary to sepsis no evidence of acute coronary syndrome -New-onset atrial flutter flutter heart rate is well controlled, patient can be started on oral anti-correlation at his Eliquis as mentioned above -Hyperlipidemia -hypertension -hypothyroidism -Gastroesophageal reflux Patient is medically stable to be discharged.
--- NOTE | 2020-09-14 14:23 | P.DS ---
<Leatha June - Last Filed: 09/14/20 14:18> Providers Expected date of discharge: 09/14/20 Hospital Course: Discharge diagnosis 1. Acute hemorrhagic gangrenous cholecystitis with cystic duct obstruction due to gallstones Status post Robotic-assisted da Gt Xi laparoscopic lysis of adhesions over 1 hour, Robotic-assisted da Gt Xi laparoscopic cholecystectomy And Placement of round #19 Jose-Mcnamara drain 2. Symptomatic gallstones 3. Hypertensive heart disease 4. Abnormal EKG, premature atrial complexes 5. Depressive disorder 6. History of colectomy 7. Paraesophageal hiatal hernia 8. Atypical chest pain 9. Hypothyroidism 10. Pre-existing anemia 11. Pre-existing hiatal hernia with early satiety 12. Hypokalemia Likely Secondary to diarrhea 13. Pre-existing hyponatremia 14. New onset of atrial flutter Hospital course This is a 80-year-old female with a known past medical history of hypertension, GERD, hyperlipidemia and hypothyroidism. Patient reports having abdominal pain in which she thought was pulled muscles after doing yard work for the last week. She had a computed tomography scan done of abdomen completed at [facility] her ER physician reported inflammation surrounding the gallbladder extending into the pancreatic head concerning for acute cholecystitis. Patient is status post Robotic-assisted da Gt Xi laparoscopic lysis of adhesions over 1 hour, Robotic-assisted da Gt Xi laparoscopic cholecystectomy for Acute hemorrhagic gangrenous cholecystitis with cystic duct obstruction due to gallstones. Patient did have an episode of atrial flutter during hospitalization requiring her to be seen by cardiology. Eyes she has been placed on IV heparin and will be transitioning over to Eliquis at home. They've also increase her metoprolol To 50 mg twice a day. Patient's pain is controlled. She is tolerating diet. She has been up and ambulating. She is afebrile. And she is stable for discharge. Physician Golf Sales Associate note has been reviewed by physician. Signing provider agrees with the documented findings, assessment, and plan of care. Patient Condition at Discharge: Stable Plan - Discharge Summary New Discharge Prescriptions: New Metoprolol Tartrate [Lopressor] 50 mg PO BID #60 tab Apixaban [Eliquis] 5 mg PO BID #60 tab Acetaminophen Tab [Tylenol Tab] 650 mg PO Q4H PRN #30 tablet PRN Reason: Pain Continue PARoxetine [Paxil] 30 mg PO DAILY Levothyroxine Sodium [Synthroid] 75 mcg PO DAILY Esomeprazole Magnesium 40 mg PO HS Zolpidem Tartrate [Ambien] 5 mg PO HS Discontinued Metoprolol Tartrate 12.5 mg PO BID Discharge Medication List Esomeprazole Magnesium 40 mg PO HS 09/06/20 [History] Levothyroxine Sodium [Synthroid] 75 mcg PO DAILY 09/06/20 [History] PARoxetine [Paxil] 30 mg PO DAILY 09/06/20 [History] Zolpidem Tartrate [Ambien] 5 mg PO HS 09/06/20 [History] Apixaban [Eliquis] 5 mg PO BID #60 tab 09/13/20 [Rx] Metoprolol Tartrate [Lopressor] 50 mg PO BID #60 tab 09/13/20 [Rx] Acetaminophen Tab [Tylenol Tab] 650 mg PO Q4H PRN #30 tablet 09/14/20 [Rx] Follow up Appointment(s)/Referral(s): Josee Zavala MD [STAFF PHYSICIAN] - 09/21/20 10:45 am (You will be seeing the HEALTHCARE SOCIAL WORKER Heidi.) Katie Gonzales MD [STAFF PHYSICIAN] - 09/19/20 1:00 pm [facility], [NON-STAFF] - 1 Week José Miguel Marques MD [Primary Care Provider] - 09/15/20 11:00 am Patient Instructions/Handouts: Metoprolol (By mouth), Acetaminophen (By mouth), Apixaban (By mouth), Low Fat Diet (DC), Laparoscopic Cholecystectomy (DC) Activity/Diet/Wound Care/Special Instructions: pt to pharmacy picking tech [facility] her co-pay is $14.00 No lifting over 4 pounds in 4 weeks until Oct 12. May shower. No bath tub soaks for two weeks until Sep 28 Avoid steak, tough meats and seeds such as raspberry seeds. Low-fat diet Ok to start Eliquis this evening Discharge Disposition: HOME SELF-CARE <Katie Gonzales - Last Filed: 09/15/20 23:05> Providers Date of admission: 09/08/20 10:37 Attending physician: Katie Gonzales Consults: 09/06/20 16:12 Consult Physician Routine Consulting Provider: Leopoldo Evans Consult Reason/Comments: Medical management Do you want consulting provider notified?: Yes 09/13/20 15:07 Consult Physician Routine Consulting Provider: Juan Vega Consult Reason/Comments: aflutter Do you want consulting provider notified?: Already Contacted Primary care physician: José Miguel Marques MD - Discharge Diagnosis(es) (1) Acute hemorrhagic cholecystitis Status: Acute (2) Atrial flutter Status: Acute (3) Hypothyroid Status: Acute (4) Depressive disorder Status: Acute (5) Gastroesophageal reflux disease Status: Acute Hospital Course: As above. Patient seen and evaluated. Patient reports moderate improvement in abdominal pain since admission. ARMAND serous sanguinous. ARMAND removal prior to discharge. Additionally, care plan discussed with cardiology including blood thinners to be started at home. Patient to follow-up with primary care provider.
--- NOTE | 2020-09-14 14:28 | P.PN ---
Subjective Progress Note Date: 09/14/20 HISTORY OF PRESENT ILLNESS: Patient is s/p cholecystectomy on 09/08/[address] Gonzales. Patient examined at the bedside with Dr. Vega. Patient has converted back to SR. She denies chest pain or pressure. Denies SOB. PHYSICAL EXAM: VITAL SIGNS: Reviewed. GENERAL: Well-developed in no acute distress. NECK: Supple. No JVD or thyromegaly LUNGS: Respirations even and unlabored. Lungs essentially clear to auscultation bilaterally. HEART: Regular rate and rhythm. S1 and S2 heard. EXTREMITIES: Normal range of motion. No clubbing or cyanosis. Peripheral pulses intact. No lower extremity edema ASSESSMENT: Acute cholecystitis Hypertension Abnormal troponins, no evidence of acute coronary syndrome New-onset atrial flutter, since converted back to SR PLAN: Continue current dose of metoprolol Begin Eliquis when cleared by Dr. Gonzales Patient may be discharged home today from a cardiac standpoint. She is to follow up outpatient. Nurse practitioner note has been reviewed by physician. Signing provider agrees with the documented findings, assessment, and plan of care. Objective - Vital Signs Vital signs: Vital Signs Temp 98.2 F 09/14/20 11:49 Pulse 56 L 09/14/20 11:49 Resp 17 09/14/20 11:49 BP 129/65 09/14/20 11:49 Pulse Ox 97 09/14/20 11:49 Intake & Output 09/13/20 09/14/20 09/14/20 18:59 06:59 18:59 Intake Total 50.215 Output Total 1590 51 Balance -1590 50.215 -51 Weight 68.039 kg Intake: Intake, IV Titration 50.215 Amount Heparin Sod,Pork in 0.45% 50.215 NaCl 25,000 unit In 0.45 % NaCl 1 250ml.bag @ 12 UNITS/KG/HR 8.165 mls/hr IV .Q24H [facility] Rx#: [id number] Output: Drainage 40 51 Abdomen 40 51 Urine 1550 Other: Voiding Method Toilet Toilet # Voids 2 2 - Labs CBC & Chem 7: 09/14/20 05:46 09/14/20 05:46 Labs: Abnormal Lab Results - Last 24 Hours (Table) 09/13/20 09/14/20 09/14/20 Range/Units 15:00 05:46 05:46 RBC 2.88 L 2.73 L (3.80-5.40) m/uL Hgb 9.7 L 8.8 L (11.4-16.0) gm/dL Hct 29.5 L 27.8 L (34.0-46.0) % MCV 102.3 H 102.1 H (80.0-100.0) fL APTT (22.0-30.0) sec Carbon Dioxide 32.2 H (21.6-31.8) mmol/L BUN/Creatinine Ratio 10.00 L (12.00-20.00) Ratio Calcium 8.5 L (8.7-10.3) mg/dL 09/14/20 Range/Units 05:46 RBC (3.80-5.40) m/uL Hgb (11.4-16.0) gm/dL Hct (34.0-46.0) % MCV (80.0-100.0) fL APTT 44.8 H (22.0-30.0) sec Carbon Dioxide (21.6-31.8) mmol/L BUN/Creatinine Ratio (12.00-20.00) Ratio Calcium (8.7-10.3) mg/dL Microbiology - Last 24 Hours (Table) 09/09/20 14:44 Blood Culture - Preliminary Blood No Growth after 96 hours
--- NOTE | 2020-09-15 12:31 | CDI ---
Documentation Clarification Form Date: 09/15/20 From: Otilia Porter Phone: If you have a question about this query, please contact Sonia Morton, Sales Development Specialist at [phone] between 8am and 5pm. Admit Date: 09/06/20 Discharge Date:09/14/20 Patient Name: Stephanie Vazquez Visit Number: [id number] ATTENTION: The Clinical Documentation Specialists (CDI) and [facility] Coding Staff appreciate your assistance in clarifying documentation. Please respond to the clarification below the line at the bottom and electronically sign. The CDI & [facility] Coding staff will review the response and follow-up if needed. Please note: Queries are made part of the Legal Health Record. If you have any questions, please contact the author of this message via ITS. Dear Dr. Gonzales The patient presented with the following: Acute cholecystitis History/Risk Factors: Htn, Sepsis, Cholelithiasis, Clinical Indicators: Gangrenous cholecystitis with cystic duct obstruction, elevated WBC Lab findings: WBC 19.1 Radiology findings: US abdomen -Cholelithiasis. Gallbladder wall thickening is present. Vital Signs: T. 98.0, P. 59, R. 18, BP 129/65 Treatment: Laparoscopic cholecystectomy In your professional opinion, can you please clarify the acute cholecystitis? With infection of the gallbladder Without infection of the gallbladder Other, please specify Unable to determine With infection of the gallbladder KM 09/15/20 @ [address] [facility]
== END 2020-09-14 16:42 | disposition home or self-care (01) | DRG 853 ==
LOC: EC 15:58 → 1SOBS 16:58 → OBSVTOIN 09-08 10:37 → 6NMEDSUR 09-08 19:27
PROVIDERS: ADMIT Surgery Plastic and Reconstructive Surgery; ATTEND Surgery Plastic and Reconstructive Surgery
PROC: 8E0W4CZ Robotic Assisted Procedure of Trunk Region, Percutaneous Endoscopic Approach (ICD-10-PCS; principal; 2020-09-08 13:00)
PROC: 0FT44ZZ Resection of Gallbladder, Percutaneous Endoscopic Approach (ICD-10-PCS; principal; 2020-09-08 13:00)
PROC: 0DNW4ZZ Release Peritoneum, Percutaneous Endoscopic Approach (ICD-10-PCS; principal; 2020-09-08 13:00)
DX: A41.9 Sepsis, unspecified organism (principal); N17.0 Acute kidney failure with tubular necrosis; E87.1 Hypo-osmolality and hyponatremia; I48.92 Unspecified atrial flutter; K80.01 Calculus of gallbladder with acute cholecystitis with obstruction; K82.A1 Gangrene of gallbladder in cholecystitis; I95.9 Hypotension, unspecified; I11.9 Hypertensive heart disease without heart failure; Z66 Do not resuscitate; Z20.828 Contact with and (suspected) exposure to other viral communicable diseases; K66.0 Peritoneal adhesions (postprocedural) (postinfection); D64.9 Anemia, unspecified; E03.9 Hypothyroidism, unspecified; E78.5 Hyperlipidemia, unspecified; E87.6 Hypokalemia; F32.9 Major depressive disorder, single episode, unspecified; F41.9 Anxiety disorder, unspecified; I49.1 Atrial premature depolarization; K44.9 Diaphragmatic hernia without obstruction or gangrene; K21.9 Gastro-esophageal reflux disease without esophagitis; R00.1 Bradycardia, unspecified; R07.89 Other chest pain; R19.7 Diarrhea, unspecified; R35.0 Frequency of micturition; R68.81 Early satiety; R79.89 Other specified abnormal findings of blood chemistry; R32 Unspecified urinary incontinence; I08.1 Rheumatic disorders of both mitral and tricuspid valves; R00.0 Tachycardia, unspecified; T46.1X5A Adverse effect of calcium-channel blockers, initial encounter; Z79.890 Hormone replacement therapy; Z79.899 Other long term (current) drug therapy; Z90.710 Acquired absence of both cervix and uterus; Z90.49 Acquired absence of other specified parts of digestive tract; Z87.19 Personal history of other diseases of the digestive system
CPT/HCPCS: 36415; 71045; 71046; 76700; 80048; 80053; 81001; 82272; 83690; 83735; 84100; 84132; 84484; 85025; 85027; 85610; 85730; 86850; 86870; 86880; 86900; 86901; 86902; 87040; 87086; 87324; 88304; 93005; 93306; 94760; 99285

== ENCOUNTER 2020-09-24 17:53 | Inpatient (IN) | payer MEDICARE ==
[2020-09-24] MEDS ORDERED: ACETAMINOPHEN TAB 325 MG TAB PO PRN (18:12)
[2020-09-24] MEDS ORDERED: NALOXONE 0.4 MG/ML 1 ML VIAL IV PRN (18:12)
[2020-09-24] MEDS: SODIUM CHLORIDE 0.9% 1,000 ML IV SCH (18:28)
--- NOTE | 2020-09-24 18:32 | ED ---
General Adult HPI - General Chief complaint: Syncope Stated complaint: Near Syncope Time Seen by Provider: 09/24/20 17:57 Source: patient, RN notes reviewed, old records reviewed Mode of arrival: EMS Limitations: no limitations - History of Present Illness Initial comments: 80-year-old female who had been transferred from outside hospitalWith syncopal e pisode and bradycardia. Patient had recent medication changes including increasing her metoprolol to 50 mg twice a day. She was found to be bradycardic in the 40s. She had a syncopal episode with minor head trauma, had workup at an outside hospital and was transferred for telemetry monitoring. Patient is asymptomatic at the time my evaluation. She did report momentary loss consciousness associated with nausea and vomiting. No chest pain. - Related Data Home Medications Medication Instructions Recorded Confirmed Esomeprazole Magnesium 40 mg PO HS 09/06/20 09/06/20 Levothyroxine Sodium [Synthroid] 75 mcg PO DAILY 09/06/20 09/06/20 PARoxetine [Paxil] 30 mg PO DAILY 09/06/20 09/06/20 Zolpidem Tartrate [Ambien] 5 mg PO HS 09/06/20 09/06/20 Previous Rx's Medication Instructions Recorded Apixaban [Eliquis] 5 mg PO BID #60 tab 09/13/20 Metoprolol Tartrate [Lopressor] 50 mg PO BID #60 tab 09/13/20 Acetaminophen Tab [Tylenol Tab] 650 mg PO Q4H PRN #30 tablet 09/14/20 Allergies Allergy/AdvReac Type Severity Reaction Status Date / Time No Known Allergies Allergy Verified 09/06/20 16:47 Review of Systems ROS Statement: Those systems with pertinent positive or pertinent negative responses have been documented in the HPI. ROS Other: All systems not noted in ROS Statement are negative. Past Medical History Past Medical History: GERD/Reflux, Hyperlipidemia, Hypertension, Thyroid Disorder Additional Past Medical History / Comment(s): anemia History of Any Multi-Drug Resistant Organisms: None Reported Past Surgical History: Appendectomy, Bowel Resection, Cholecystectomy, Hysterectomy Additional Past Surgical History / Comment(s): partial bowel resection with the hysterectomy Past Psychological History: Anxiety, Depression Smoking Status: Never smoker Past Alcohol Use History: None Reported Past Drug Use History: None Reported General Exam Limitations: no limitations General appearance: alert, in no apparent distress Head exam: Present: normocephalic Eye exam: Present: normal appearance, PERRL ENT exam: Present: normal exam Neck exam: Present: normal inspection. Absent: tenderness, meningismus Respiratory exam: Present: normal lung sounds bilaterally. Absent: respiratory distress, wheezes Cardiovascular Exam: Present: normal rhythm, bradycardia GI/Abdominal exam: Present: soft. Absent: distended, tenderness, guarding, rebound Extremities exam: Present: normal inspection, normal capillary refill. Absent: pedal edema Back exam: Present: normal inspection Neurological exam: Present: alert, oriented X3, CN II-XII intact. Absent: motor sensory deficit Psychiatric exam: Present: normal affect, normal mood Skin exam: Present: warm, dry, intact. Absent: cyanosis, diaphoretic Course Vital Signs 09/24/20 17:57 Temperature 98.8 F Pulse Rate 55 L Respiratory 18 Rate Blood Pressure 171/71 O2 Sat by Pulse 98 Oximetry EKG Findings - EKG Comments: EKG Findings:: EKG: Sinus bradycardia, PVC, rate of 54, P-R intervals 176, QRS duration 84, QTC 434, no ST segment elevation 2 different P wave morphology. Medical Decision Making - Medical Decision Making 80-year-old female who had been transferred from outside hospitalWith syncopal episode and bradycardia. Patient had recent medication changes including increasing her metoprolol to 50 mg twice a day. She was found to be bradycardic in the 40s. She had a syncopal episode with minor head trauma, had workup at an outside hospital and was transferred for telemetry monitoring. Patient is asymptomatic at the time my evaluation. She did report momentary loss consciousness associated with nausea and vomiting. No chest pain. Workup had revealed EKG which was sinus bradycardia in the 40s. She has normal white blood cell count, hemoglobin 10.4, normal creatinine, normal electrolytes. CT was performed which was negative for intracranial hemorrhage or mass effect. metoprolol will be held, patient will be kept on telemetry, repeat laboratory testing will be ordered for the morning. Disposition Clinical Impression: Bradycardia, Syncope Disposition: ADMITTED IP TO THIS HOSP Condition: Stable Is patient prescribed a controlled substance at d/c from ED?: No Referrals: Nonstaff,Physician [Primary Care Provider] - 1-2 days Decision to Admit Reason: Admit from EC Decision Date: 09/24/20 Decision Time: 18:21
[2020-09-25] MEDS: PANTOPRAZOLE 40 MG TABLET PO SCH (00:02)
[2020-09-25] MEDS: ZOLPIDEM 5 MG TAB PO SCH ×2 (00:02→21:11)
[2020-09-25] MEDS: LEVOTHYROXINE 75 MCG TAB PO SCH (06:03)
[2020-09-25 08:04] LABS: Basophils % (A) 0 %; Eosinophils % (A) 1 %; HCT 30.1 % (34.0-46.0); HGB 9.8 gm/dL (11.4-16.0); Lymphocytes # (A) 1.3 k/uL (1.0-4.8); Lymphocytes % (A) 24 %; MCH 33.5 pg (25.0-35.0); MCHC 32.6 g/dL (31.0-37.0); MCV 102.7 fL (80.0-100.0); Macrocytosis Slight; Mean Platelet Volume 6.8; Monocytes # (A) 0.3 k/uL (0-1.0); Monocytes % (A) 5 %; Neutrophils # (A) 3.5 k/uL (1.3-7.7); Neutrophils % (A) 67 %; Platelet Count 363 k/uL (150-450); RBC 2.93 m/uL (3.80-5.40); RDW 13.9 % (11.5-15.5); WBC 5.2 k/uL (3.8-10.6)
[2020-09-25 08:38] LABS: Albumin 3.2 g/dL (3.5-5.0); Calcium 8.9 mg/dL (8.4-10.2); Magnesium 1.6 mg/dL (1.6-2.3); Potassium 3.5 mmol/L (3.5-5.1); Total Bilirubin 0.6 mg/dL (0.2-1.3); Total Protein 6.2 g/dL (6.3-8.2)
[2020-09-25] MEDS ORDERED: METOPROLOL TARTRATE 50 MG TAB PO SCH (09:00)
[2020-09-25] MEDS: FAMOTIDINE 20 MG/2 ML VIAL IV SCH ×2 (09:08→21:11)
[2020-09-25] MEDS: PARoxetine 10 MG TAB PO SCH (09:09)
[2020-09-25] MEDS: APIXABAN 5 MG TAB PO SCH ×2 (09:09→21:11)
[2020-09-25] MEDS: amLODIPine 2.5 MG TAB PO SCH (12:00)
--- NOTE | 2020-09-25 13:57 | P.CRDCN ---
History of Present Illness History of present illness: HISTORY OF PRESENTING ILLNESS This is a pleasant 80-year-old female past medical history significant for paroxysmal atrial flutter on long-term anticoagulation, hypertension, hypot hyroidism and recent cholecystectomy. She does not follows in the office with a patient support associate. She was scheduled to follow up with Dr. Zavala on 09/21 however that appointment was cancelled. She was recently admitted here with acute cholecystitis and underwent cholecystecomty which was complicated post- operatively by elevated troponins and atrial flutter. Her beta blockers were increased and she was anti-coagulated appropriately. Yesterday morning she woke up around 1030 feeling normal. She was getting ready to take her pills standing in the kitchen when she suddenly passed out. She denies feeling dizzy or light headed prior to this happening. She denies feeling chest pain, shortness of breath or palpitations. She denies being clammy or sweaty and did not vomit. On arrival to [facility] she was noted to have a heart rate in the 40's. She was transferred here for further cardiac evaluation. She is seen and examined sitting up in bed with family at the bedside. She denies feeling dizzy or lightheaded and has had no further episodes of syncope. DIAGNOSTICS EKG reveals sinus bradycardia, heart rate 54. Telemetry tracings indicate persistent sinus mechanism with rates between 50-60. No significant bradycardia or pauses noted. Laboratory reviewed, WBC 5.2, hemoglobin 9.8, platelets 363, sodium 135, potassium 3.5, creatinine 1.0, magnesium 1.6. Current cardiac medications include Eliquis 5 mg twice a day, metoprolol 50 mg twice a day and amlodipine 2.5 mg daily and noontime. Most recent echocardiogram obtained 09/07/2020 reveals preserved LV systolic function with ejection fraction 55-60%, mild to moderate mitral regurgitation and mild to moderate tricuspid regurgitation. REVIEW OF SYSTEMS At the time of my exam: CONSTITUTIONAL: Denies fever or chills. CARDIOVASCULAR: Denies chest pain, shortness of breath, orthopnea, PND or palpitations. RESPIRATORY: Denies cough. GASTROINTESTINAL: Denies abdominal pain, diarrhea, constipation, nausea or vomiting. MUSCULOSKELETAL: Denies myalgias. NEUROLOGIC: Denies numbness, tingling or weakness. ENDOCRINE: Denies fatigue, weight change, polydipsia or polyurina. GENITOURINARY: Denies burning, hematuria or urgency with micturation. HEMATOLOGIC: Denies history of anemia or bleeding. PHYSICAL EXAMINATION Blood pressure 127/53 heart rate 53 afebrile and maintaining oxygen saturation on room air. CONSTITUTIONAL: No apparent distress. HEENT: Head is normocephalic. Pupils are equal, round. Sclerae anicteric. Mucous membranes of the mouth are moist. No JVD. No carotid bruit. CHEST EXAMINATION: Lungs are clear to auscultation. No chest wall tenderness is noted on palpation or with deep breathing. HEART EXAMINATION: Regular rate and rhythm. S1, S2 heard. Soft systolic ejection murmur at the left sternal border, no gallops or rub. ABDOMEN: Soft, nontender. Positive bowel sounds. EXTREMITIES: 2+ peripheral pulses, no lower extremity edema and no calf tenderness. NEUROLOGIC EXAMINATION: Patient is awake, alert and oriented x3. ASSESSMENT Syncope, could be secondary to bradycardia or vasovagal syncope Paroxysmal atrial flutter, spontaneously converted back to sinus on last admission Hypertension Hypothyroidism PLAN Hold all AV bo blocking agents and monitor closely on telemetry. Check for orthostatic changes. Check TSH. Possible discharge tomorrow if things remain stable without beta blockers. Further recommendations to follow based on clinical course. Thank you kindly for this consultation. Nurse Practitioner note has been reviewed, I agree with a documented findings and plan of care. Patient was seen and examined. Past Medical History Past Medical History: GERD/Reflux, Hyperlipidemia, Hypertension, Thyroid Disorder Additional Past Medical History / Comment(s): anemia History of Any Multi-Drug Resistant Organisms: None Reported Past Surgical History: Appendectomy, Bowel Resection, Cholecystectomy, Hysterectomy Additional Past Surgical History / Comment(s): partial bowel resection with the hysterectomy Past Psychological History: Anxiety, Depression Smoking Status: Never smoker Past Alcohol Use History: None Reported Past Drug Use History: None Reported Medications and Allergies Home Medications Medication Instructions Recorded Confirmed Type Esomeprazole Magnesium 40 mg PO HS 09/06/20 09/24/20 History Levothyroxine Sodium [Synthroid] 75 mcg PO DAILY 09/06/20 09/24/20 History PARoxetine [Paxil] 30 mg PO DAILY 09/06/20 09/24/20 History Zolpidem Tartrate [Ambien] 5 mg PO HS 09/06/20 09/24/20 History Apixaban [Eliquis] 5 mg PO BID #60 tab 09/13/20 09/24/20 Rx Metoprolol Tartrate [Lopressor] 50 mg PO BID #60 tab 09/13/20 09/24/20 Rx amLODIPine [Norvasc] 2.5 mg PO DAILY@1200 09/24/20 09/24/20 History Allergies Allergy/AdvReac Type Severity Reaction Status Date / Time No Known Allergies Allergy Verified 09/24/20 18:57 Physical Exam Vitals: Vital Signs Temp Pulse Pulse Pulse Resp BP BP 09/25/20 11:59 53 L 18 127/53 09/25/20 09:00 97.8 F 57 L 55 L 18 109/55 09/25/20 03:00 98.6 F 46 L 18 118/53 09/24/20 21:00 98.3 F 50 L 18 163/64 09/24/20 18:48 98.3 F 50 L 18 163/64 09/24/20 18:47 51 L 18 151/93 09/24/20 18:30 50 L 22 168/90 09/24/20 18:18 50 L 09/24/20 17:57 98.8 F 55 L 18 171/71 Pulse Ox 09/25/20 11:59 96 09/25/20 09:00 95 09/25/20 03:00 94 L 09/24/20 21:00 98 09/24/20 18:48 98 09/24/20 18:47 99 09/24/20 18:30 99 09/24/20 18:18 09/24/20 17:57 98 Intake and Output 09/24/20 09/25/20 09/25/20 22:59 06:59 14:59 Intake Total 100 520 Balance 100 520 Intake: Intake, IV Titration 100 400 Amount Sodium Chloride 0.9% 1, 100 400 000 ml @ 50 mls/hr IV . Q20H [facility] Rx#:[id number] Oral 120 Other: # Voids 2 2 1 Weight 67.132 kg Results 09/25/20 07:36 09/25/20 07:36 Cardiac Enzymes 09/25/20 Range/Units 07:36 AST 27 (14-36) U/L CBC 09/25/20 Range/Units 07:36 WBC 5.2 (3.8-10.6) k/uL RBC 2.93 L (3.80-5.40) m/uL Hgb 9.8 L (11.4-16.0) gm/dL Hct 30.1 L (34.0-46.0) % Plt Count 363 (150-450) k/uL Comprehensive Metabolic Panel 09/25/20 Range/Units 07:36 Sodium 135 L (137-145) mmol/L Potassium 3.5 (3.5-5.1) mmol/L Chloride 102 (98-107) mmol/L Carbon Dioxide 27 (22-30) mmol/L BUN 13 (7-17) mg/dL Creatinine 1.00 (0.52-1.04) mg/dL Glucose 107 H (74-99) mg/dL Calcium 8.9 (8.4-10.2) mg/dL AST 27 (14-36) U/L ALT 15 (4-34) U/L Alkaline Phosphatase 67 (38-126) U/L Total Protein 6.2 L (6.3-8.2) g/dL Albumin 3.2 L (3.5-5.0) g/dL Current Medications Generic Name Dose Route Start Last Admin Trade Name Freq PRN Reason Stop Dose Admin Acetaminophen 650 mg 09/24/20 18:12 Acetaminophen Tab 325 Mg Tab PO Q6HR PRN Mild Pain or Fever > 100.5 Amlodipine Besylate 2.5 mg 09/25/20 12:00 09/25/20 12:00 Amlodipine 2.5 Mg Tab PO Not Given DAILY@1200 [facility] Apixaban 5 mg 09/25/20 09:00 09/25/20 09:09 Apixaban 5 Mg Tab PO 5 mg BID [facility] Administration Famotidine 20 mg 09/25/20 09:00 09/25/20 09:08 Famotidine 20 Mg/2 Ml Vial IV 20 mg Q12HR [facility] Administration Sodium Chloride 1,000 mls @ 50 mls/hr 09/24/20 18:15 09/24/20 18:28 Saline 0.9% IV 50 mls/hr .Q20H [facility] Administration Levothyroxine Sodium 75 mcg 09/25/20 06:30 09/25/20 06:03 Levothyroxine 75 Mcg Tab PO 75 mcg DAILY@0630 [facility] Administration Naloxone HCl 0.2 mg 11/01/20 18:12 Naloxone 0.4 Mg/Ml 1 Ml Vial IV Q2M PRN Opioid Reversal Pantoprazole Sodium 40 mg 09/25/20 07:30 09/25/20 00:02 Pantoprazole 40 Mg Tablet PO 40 mg [id number] [facility] Administration Paroxetine HCl 30 mg 09/25/20 09:00 09/25/20 09:09 Paroxetine 10 Mg Tab PO 30 mg DAILY [facility] Administration Zolpidem Tartrate 5 mg 09/24/20 23:30 09/25/20 00:02 Zolpidem 5 Mg Tab PO 5 mg HS [facility] Administration Intake and Output 09/24/20 09/25/20 09/25/20 22:59 06:59 14:59 Intake Total 100 520 Balance 100 520 Intake: Intake, IV Titration 100 400 Amount Sodium Chloride 0.9% 1, 100 400 000 ml @ 50 mls/hr IV . Q20H [facility] Rx#:[id number] Oral 120 Other: # Voids 2 2 1 Weight 67.132 kg 09/25/20 07:36 09/25/20 07:36
[2020-09-25] MEDS: SODIUM CHLORIDE 0.9% 1,000 ML IV SCH (16:32)
--- NOTE | 2020-09-25 17:38 | P.HPIM ---
History of Present Illness H&P Date: 09/25/20 Chief Complaint: Syncopal episode and bradycardia Ms. Vazquez is a 80-year-old female with a past medical history of paroxysmal atrial fibrillation on long-term anticoagulation, GERD, hypertension, hyperlipidemia, thyroid disorder, recent cholecystectomy coming into the hosp ital with a chief complaint of passing out. Patient states that she felt dizzy and lightheaded and later on slump to the floor. Patient mentions that she was at [facility] and then had workup done there was told everything was okay with her head and was transferred to this hospital for telemetry monitoring. She recently had acute cholecystitis and underwent cholecystectomy laparoscopically and her postop was complicated by elevated troponins and atrial flutter. At that time her Lopressor was increased and she was started on anticoagulation. Patient states that since increasing the dose of her Lopressor, she has been feeling dizzy but this progressively got worse to the extent that she fell. At the time of my evaluation, there were no records from the hospital, so requested further records were put in. Patient is comfortably lying in bed appears to be in no acute distress. She states that she is completely back to her normal state and believes all of this happened because they went up on the dose of her Lopressor. Patient denies having any chest pain or palpitations. No orthopnea PND or lower extent dissection. No cough or difficulty in breathing. Normal pain nausea vomiting or diarrhea. No dysuria or hematuria. In the emergency room patient had an EKG showing sinus bradycardia with premature ventricle complexes and her vitals within normal range. Patient also had labs done that was within normal limits. Review of Systems REVIEW OF SYSTEMS: PSYCH: No anxiety or depression NEURO: No c/o weakness of the extremties, No facial droop, No speech abnormalities. VASCULAR: Peripheral nervous system within the normal limits no edema HEMATOLOGIC: No history of easy bleeding and bruising . No recent infections . RESPIRATORY: No cough, No SOB, No chest discomfort. IMMUNE: No infections INTEGUMENT: no rashes OPHTHALMOLOGIC: No blurry vision and no eye discharge : No dysuria or hematuria POLICY ISSUE CLERK: No bleeding PV CARDIAC: No chest pain , shortness of breath , paroxysmal nocturnal dyspnea MUSCULOSKELETAL : No Aches or pains in the joints or muscles. GI: No abdominal pain, Nausea or vomiting. No constipation or diarrhea. Past Medical History Past Medical History: GERD/Reflux, Hyperlipidemia, Hypertension, Thyroid Disorder Additional Past Medical History / Comment(s): anemia History of Any Multi-Drug Resistant Organisms: None Reported Past Surgical History: Appendectomy, Bowel Resection, Cholecystectomy, H ysterectomy Additional Past Surgical History / Comment(s): partial bowel resection with the hysterectomy Past Psychological History: Anxiety, Depression Smoking Status: Never smoker Past Alcohol Use History: None Reported Past Drug Use History: None Reported Medications and Allergies Home Medications Medication Instructions Recorded Confirmed Type Esomeprazole Magnesium 40 mg PO HS 09/06/20 09/24/20 History Levothyroxine Sodium [Synthroid] 75 mcg PO DAILY 09/06/20 09/24/20 History PARoxetine [Paxil] 30 mg PO DAILY 09/06/20 09/24/20 History Zolpidem Tartrate [Ambien] 5 mg PO HS 09/06/20 09/24/20 History Apixaban [Eliquis] 5 mg PO BID #60 tab 09/13/20 09/24/20 Rx Metoprolol Tartrate [Lopressor] 50 mg PO BID #60 tab 09/13/20 09/24/20 Rx amLODIPine [Norvasc] 2.5 mg PO DAILY@1200 09/24/20 09/24/20 History Allergies Allergy/AdvReac Type Severity Reaction Status Date / Time No Known Allergies Allergy Verified 09/24/20 18:57 Physical Exam Vitals: Vital Signs Temp Pulse Pulse Pulse Resp BP BP 09/25/20 11:59 53 L 18 127/53 09/25/20 09:00 97.8 F 57 L 55 L 18 109/55 09/25/20 03:00 98.6 F 46 L 18 118/53 09/24/20 21:00 98.3 F 50 L 18 163/64 09/24/20 18:48 98.3 F 50 L 18 163/64 09/24/20 18:47 51 L 18 151/93 09/24/20 18:30 50 L 22 168/90 09/24/20 18:18 50 L 09/24/20 17:57 98.8 F 55 L 18 171/71 Pulse Ox 09/25/20 11:59 96 09/25/20 09:00 95 09/25/20 03:00 94 L 09/24/20 21:00 98 09/24/20 18:48 98 09/24/20 18:47 99 09/24/20 18:30 99 09/24/20 18:18 09/24/20 17:57 98 Intake and Output 09/24/20 09/25/20 09/25/20 22:59 06:59 14:59 Intake Total 100 520 Balance 100 520 Intake: Intake, IV Titration 100 400 Amount Sodium Chloride 0.9% 1, 100 400 000 ml @ 50 mls/hr IV . Q20H DOROTHY Rx#:[id number] Oral 120 Other: # Voids 2 2 1 Weight 67.132 kg PHYSICAL EXAM GEN. APPEARANCE: alert, in no apparent distress HEAD EXAM: atraumatic, normocephalic, normal inspection EYE EXAM: no pallor. No icterus. No JVD. No thyromegaly NECK EXAM: normal inspection. No thyromegaly. RESPIRATORY EXAM: Diminished at the lower lung bases. No wheeze or crackles. CARDIOVASCULAR EXAM: bradycardia. GI/ABDOMINAL EXAM: soft, normal bowel sounds, Nontender nondistended EXTREMITIES EXAM: No pedal edema NEUROLOGICAL EXAM: alert, oriented X3, no focal neurological deficits PSYCHIATRIC EXAM: normal affect, normal mood Results CBC & Chem 7: 09/25/20 07:36 09/25/20 07:36 Labs: Abnormal Lab Results - Last 24 Hours (Table) 09/25/20 09/25/20 Range/Units 07:36 07:36 RBC 2.93 L (3.80-5.40) m/uL Hgb 9.8 L (11.4-16.0) gm/dL Hct 30.1 L (34.0-46.0) % MCV 102.7 H (80.0-100.0) fL Sodium 135 L (137-145) mmol/L Glucose 107 H (74-99) mg/dL Total Protein 6.2 L (6.3-8.2) g/dL Albumin 3.2 L (3.5-5.0) g/dL Thrombosis Risk Factor Assmnt - Choose All That Apply Any of the Below Risk Factors Present?: Yes Each Factor Represents 1 point: Obesity (BMI >25) Other Risk Factors: Yes Each Risk Factor Represents 3 Points: Age 75 years or older Other congenital or acquired thrombophilia - If yes, enter type in comment: No Thrombosis Risk Factor Assessment Total Risk Factor Score: 4 Thrombosis Risk Factor Assessment Level: Moderate Risk Assessment and Plan Assessment: ASSESSMENT Syncopal episode Bradycardia Paroxysmal atrial flutter Hypertension Hypothyroidism Reason history of cholecystectomy PLAN: I reviewed the records from [facility]. Patient had a CAT scan of the brain that was negative for any acute process. She also had an EKG done there showing marked sinus bradycardia. Her syncopal episode could be vasovagal versus bradycardia due to increase in the dose of Lopressor. Patient has been discontinued of all a been no real blocking agents. Cardiology has been consulted, will check orthostatics and TSH. Further recommendations to follow depending on the progress of the patient.
[2020-09-26] MEDS: LEVOTHYROXINE 75 MCG TAB PO SCH (06:35)
[2020-09-26 08:04] VITALS: TEMP 98.3
[2020-09-26 08:46] LABS: Calcium 8.7 mg/dL (8.4-10.2); Potassium 3.5 mmol/L (3.5-5.1)
[2020-09-26] MEDS: PARoxetine 10 MG TAB PO SCH (08:46)
[2020-09-26] MEDS: FAMOTIDINE 20 MG/2 ML VIAL IV SCH (08:46)
[2020-09-26] MEDS: PANTOPRAZOLE 40 MG TABLET PO SCH (08:47)
[2020-09-26] MEDS: APIXABAN 5 MG TAB PO SCH (08:47)
[2020-09-26 08:50] LABS: Basophils % (A) 0 %; Eosinophils # (A) 0.1 k/uL (0-0.7); Eosinophils % (A) 2 %; HCT 29.7 % (34.0-46.0); HGB 9.3 gm/dL (11.4-16.0); Lymphocytes # (A) 1.3 k/uL (1.0-4.8); Lymphocytes % (A) 27 %; MCH 32.6 pg (25.0-35.0); MCHC 31.4 g/dL (31.0-37.0); MCV 103.7 fL (80.0-100.0); Macrocytosis Slight; Mean Platelet Volume 7.1; Monocytes # (A) 0.4 k/uL (0-1.0); Monocytes % (A) 7 %; Neutrophils # (A) 2.9 k/uL (1.3-7.7); Neutrophils % (A) 61 %; Platelet Count 344 k/uL (150-450); RBC 2.86 m/uL (3.80-5.40); RDW 14.6 % (11.5-15.5); WBC 4.8 k/uL (3.8-10.6)
[2020-09-26] MEDS ORDERED: METOPROLOL TARTRATE 12.5 MG TAB PO SCH (09:00)
[2020-09-26 10:52] VITALS: RESP 16
[2020-09-26] MEDS: SODIUM CHLORIDE 0.9% 1,000 ML IV SCH (11:07)
--- NOTE | 2020-09-26 11:10 | PN ---
PROGRESS NOTE Mrs. Vazquez is in sinus rhythm today. She has not had any significant bradycardia through the night. In fact, when I ambulated her, she is in sinus rhythm at 90 beats per minute. Vitals are stable, no JVD, S1, S2 heard normally. Lungs are clear. Abdomen and lower extremity exam unchanged. I had a long chat with the patient and she wishes to follow up with Dr. Frances in [place]. Apparently some of her family members follow up there and I will therefore have her see him in 2 weeks, but we will discharge her today on 12.5 mg b.i.d. of metoprolol tartrate. She is maintaining sinus rhythm. She will continue the anticoagulation. I explained to her that her passing-out episode that happened was probably more or less related to dehydration and may have a vasovagal component with bradycardia being a and a contributing factor. However, we will leave her at 12.5 mg b.i.d. and increase the dose down the road. She can be discharged today. MMODL / IJN: [id number] /
[2020-09-26] MEDS: amLODIPine 2.5 MG TAB PO SCH (11:40)
--- NOTE | 2020-09-26 12:00 | XR ---
EXAMINATION TYPE: Right rib series, 4 views DATE OF EXAM: 09/26/2020 COMPARISON: Chest radiograph 09/12/2020 HISTORY: 80-year-old female injured during fall event at home, right lower rib pain. FINDINGS: Loose bodies measuring up to 1.8 cm within the subcoracoid recess suggesting underlying degenerative change at the glenoid joint. Subtle nondisplaced fracture of the fifth anterior, anterolateral rib. N o displaced rib fractures seen. IMPRESSION: Nondisplaced fracture of the fifth anterior, anterolateral rib. Underlying degenerative change of the glenohumeral joint with loose bodies measuring up to 1.8 cm.
--- NOTE | 2020-09-26 12:24 | CDI ---
Documentation Clarification Form Date: 09/26/2020 12:16:02 PM From: Katrin Doyle CCS, CCDS Admit Date: 09/26/2020 10:52:00 AM Patient Name: Stephanie Vazquez Visit Number: [id number] Discharge Date: ATTENTION: The Clinical Documentation Specialists (CDI) and [facility] Coding Staff appreciate your assistance in clarifying documentation. Please respond to the clarification below the line at the bottom and electronically sign. The CDI & [facility] Coding staff will review the response and follow-up if needed. Please note: Queries are made part of the Legal Health Record. If you have any questions, please contact the author of this message via ITS. Dr. Sonja Hayes: Atrial Flutter is documented in the 09/25 History & Physical as history of paroxysmal atrial flutter and also in the 09/25 Cardiology Consult. History/Risk factors: Recently surgery: Laparoscopic Cholecystectomy, postoperatively complicated by atrial flutter with medication adjustments, GERD, Hypertension, Hyperlipidemia, Hypothyroidism, Anemia, Mitral & Tricuspid Regurgitation. Clinical Indicators: Presented as a transfer to the ED on 09/24 from [facility] after syncopal episode with a fall & minor head injury. Admitted with bradycardia, syncopal episode unclear cause & dehydration. EKG/telemetry: R 54 sinus bradycardia with premature supraventricular complexes. ECHO: (Most recent documented 09/07/2020): Preserved LV systolic function with EF 55-60%, mild to moderate MR & TR. Treatment: po home meds continued including Eliquis & Amlodipine. AV bo blocking agents held, Telemetry, Orthostatics checked, TSH. Metoprolol dose left at 12.5 mg BID. In your professional opinion, in order to capture the severity of condition; can you please clarify the type of Atrial Flutter if known? Typical/Type I Atypical/Type II Other, please specify Unable to determine (Last Revision: February 2018) Unable to determine MTDD
--- NOTE | 2020-09-26 14:24 | P.DS ---
Providers Date of admission: 09/26/20 10:52 Attending physician: Nancy Lang Consults: 09/25/20 09:17 Consult Physician Routine Consulting Provider: Sonja Hayes Consult Reason/Comments: bradycardiac Do you want consulting provider notified?: Yes Primary care physician: Physician Nonstaff Hospital Course: Diagnoses: Syncopal episode, patient has been evaluated by insurance writer and cleared her for discharge Fall with trauma to the right chest, rib x-ray showing nondisplaced fracture of the anterior fifth rib Bradycardia, hold AV bo kd agents per insurance writer Paroxysmal atrial flutter Hypertension Hypothyroidism Reason history of cholecystectomy Hospital course: This is a pleasant 80 years old female with multiple medical problems as below, presents because of syncope 2 and found to have bradycardia 40-60s, patient has been evaluated by insurance writer and recommended to hold her Lopressor, she was taken 50 mg twice daily. TSH normal at 1.5. X-ray: Nondisplaced fracture of the fifth anterior rib Patient monitor for 24 hours and instrument clinically stable, patient eventually she was cleared for discharge by insurance writer and patient feels she can go home today Other than her right chest rib pain she denies any other pain, no dyspnea, no change in urine or bowel habits. No fever. No other new complaints Patient was cleared for discharge by insurance writer team Problems and management plan were discussed with the patient and he verbalized understanding and acceptance Patient was found stable and can be discharged home however he needs follow-up as an outpatient. Patient was instructed to follow up with PCP within one week and patient agrees. Also patient was instructed to follow up with her insurance writer Dr. Frances in one to two week and she agrees Gen: patient is a AAOx3, no distress CVS: S1-S2, RRR, no murmur -Lungs: B/L CTA, no wheezing. Right lateral chest pain and tenderness Abdomen: soft, no distention, no tenderness, positive bowel sounds Extremity: no leg edema or induration Time spent more than 35 minutes Patient Condition at Discharge: Stable Plan - Discharge Summary Discharge Rx Participant: No New Discharge Prescriptions: No Action RX: PARoxetine [Paxil] 30 mg PO DAILY RX: Levothyroxine Sodium [Synthroid] 75 mcg PO DAILY RX: Esomeprazole Magnesium 40 mg PO HS RX: Zolpidem Tartrate [Ambien] 5 mg PO HS RX: Metoprolol Tartrate [Lopressor] 50 mg PO BID #60 tab Apixaban [Eliquis] 5 mg PO BID #60 tab RX: amLODIPine [Norvasc] 2.5 mg PO DAILY@1200 Discharge Medication List RX: Esomeprazole Magnesium 40 mg PO HS 09/06/20 [History] RX: Levothyroxine Sodium [Synthroid] 75 mcg PO DAILY 09/06/20 [History] RX: PARoxetine [Paxil] 30 mg PO DAILY 09/06/20 [History] RX: Zolpidem Tartrate [Ambien] 5 mg PO HS 09/06/20 [History] Apixaban [Eliquis] 5 mg PO BID #60 tab 09/13/20 [Rx] RX: Metoprolol Tartrate [Lopressor] 50 mg PO BID #60 tab 09/13/20 [Rx] RX: amLODIPine [Norvasc] 2.5 mg PO DAILY@1200 09/24/20 [History] Follow up Appointment(s)/Referral(s): Les Frances MD [STAFF PHYSICIAN] - 2 Weeks ([facility], 5:[address] PM [address] Frances[address] To change appt, please call ) Nonstaff,Physician [Primary Care Provider] - 1-2 days Patient Instructions/Handouts: Rib Fracture (DC), Syncope (DC), Bradycardia (DC)
[2020-09-26 14:41] VITALS: BP 156/61
[2020-09-26 15:14] VITALS: PULSE 69
== END 2020-09-26 15:50 | disposition home or self-care (01) | DRG 309 ==
LOC: EC 17:53 → 1SOBS 18:12 → OBSVTOIN 09-26 10:52
PROVIDERS: ADMIT Internal Medicine; ATTEND Internal Medicine
DX: R00.1 Bradycardia, unspecified (principal); S22.31XA Fracture of one rib, right side, initial encounter for closed fracture; S09.90XA Unspecified injury of head, initial encounter; I48.92 Unspecified atrial flutter; I48.0 Paroxysmal atrial fibrillation; E03.9 Hypothyroidism, unspecified; I10 Essential (primary) hypertension; E78.5 Hyperlipidemia, unspecified; K21.9 Gastro-esophageal reflux disease without esophagitis; F32.9 Major depressive disorder, single episode, unspecified; F41.9 Anxiety disorder, unspecified; I08.1 Rheumatic disorders of both mitral and tricuspid valves; E86.0 Dehydration; D64.9 Anemia, unspecified; T44.7X5A Adverse effect of beta-adrenoreceptor antagonists, initial encounter; X58.XXXA Exposure to other specified factors, initial encounter; Z79.01 Long term (current) use of anticoagulants; Z79.890 Hormone replacement therapy; Z79.899 Other long term (current) drug therapy; Z90.49 Acquired absence of other specified parts of digestive tract; Z90.710 Acquired absence of both cervix and uterus; Z87.19 Personal history of other diseases of the digestive system
CPT/HCPCS: 80048; 80053; 83735; 84443; 85025; 93005; 99285

== ENCOUNTER 2022-04-12 19:54 | Observation (INO) | payer MEDICARE ==
[2022-04-12] MEDS ORDERED: DILTIAZEM 125 MG in SODIUM CHLORIDE 0.9% 100 ML IV SCH (20:00)
--- NOTE | 2022-04-12 20:15 | ED ---
General Adult HPI - General Chief complaint: Chest Pain Stated complaint: Chest Pain Time Seen by Provider: 04/12/22 19:56 Source: patient, EMS Mode of arrival: EMS Limitations: no limitations - History of Present Illness Initial comments: Stephanie is a very pleasant 82-year-old female with a history of atrial fibrillation for which she is on metoprolol on L [place]. Patient reports she is compliant with her medications. Patient states today she was sitting watching television when her heart began racing and felt some chest pressure. She was seen at her local [facility] was found to be in A. fib with RVR with heart rates in the 140s to 150s she is seen in an outside hospital where her labs were unremarkable she started on Cardizem, patient follows with cardiology Dr. Frances out of this hospital was transferred here for further management. - Related Data Home Medications Medication Instructions Recorded Confirmed Levothyroxine Sodium [Synthroid] 75 mcg PO DAILY 09/06/20 04/12/22 Isosorbide Mononitrate ER [Imdur] 30 mg PO DAILY 04/12/22 04/12/22 Metoprolol Tartrate [Lopressor] 12.5 mg PO BID 04/12/22 04/12/22 Multivitamins, Thera [Multivitamin 1 tab PO DAILY 04/12/22 04/12/22 (formulary)] Zolpidem [Ambien] 10 mg PO HS 04/12/22 04/12/22 Previous Rx's Medication Instructions Recorded Apixaban [Eliquis] 5 mg PO BID #60 tab 09/13/20 Allergies Allergy/AdvReac Type Severity Reaction Status Date / Time ranolazine Allergy Rash/Hives Verified 04/12/22 21:37 Review of Systems ROS Statement: Those systems with pertinent positive or pertinent negative responses have been documented in the HPI. ROS Other: All systems not noted in ROS Statement are negative. Past Medical History Past Medical History: GERD/Reflux, Hyperlipidemia, Hypertension, Thyroid Disorder Additional Past Medical History / Comment(s): anemia History of Any Multi-Drug Resistant Organisms: None Reported Past Surgical History: Appendectomy, Bowel Resection, Cholecystectomy, Hysterectomy Additional Past Surgical History / Comment(s): partial bowel resection with the hysterectomy Past Psychological History: Anxiety, Depression Smoking Status: Never smoker Past Alcohol Use History: None Reported Past Drug Use History: None Reported General Exam - General Exam Comments Initial Comments: Physical Exam GENERAL: Patient is well-developed and well-nourished. Patient is nontoxic and well-hydrated and is in no distress. HENT: Normocephalic, Atraumatic. EYES: PERRL, EOMI PULMONARY: Unlabored respirations. CARDIOVASCULAR: Tachycardic, irregular ABDOMEN: Non-distended SKIN: No rashes or bruising : Deferred NEUROLOGIC: Alert and oriented Normal speech Normal gait MUSCULOSKELETAL: Moving all extremities with no apparent injury PSYCHIATRIC: No SI/HI Limitations: no limitations Course Vital Signs 04/12/22 04/12/22 04/12/22 20:00 21:08 21:49 Temperature 97.8 F Pulse Rate 113 H 98 Pulse Rate [ 92 [employer] ] Respiratory 18 18 Rate Blood Pressure 145/94 107/71 O2 Sat by Pulse 95 98 Oximetry 04/12/22 21:59 Temperature Pulse Rate 98 Pulse Rate [ [employer] ] Respiratory 18 Rate Blood Pressure 107/71 O2 Sat by Pulse 98 Oximetry EKG Findings - EKG Comments: EKG Findings:: EKG was obtained due to tachycardia, EKG obtained at 2006, rate is 125 rhythm is a narrow complex irregularly irregular tachycardia consistent with an atrial fibrillation. No acute ST elevations or depressions no evidence of ischemia or infarction. Medical Decision Making - Medical Decision Making Patient care was discussed with transferring physician, patient transferred here on [facility] for A. fib RVR Upon arrival he has heart rates of been in the 90s to 120s or EMS, patient with no acute complaints Repeat labs were obtained and patient was admitted to [facility] with Dr. Frances on consult Patient's repeat troponin elevated, likely related to demand ischemia from tachycardia Patient chest pain free in ER - Lab Data Result diagrams: 04/12/22 21:48 04/12/22 21:48 Disposition Clinical Impression: Atrial fibrillation with RVR, Elevated troponin Disposition: ADMITTED IP TO THIS HOSP Condition: Stable Is patient prescribed a controlled substance at d/c from ED?: No
[2022-04-12 22:02] LABS: Basophils % (A) 0 %; Eosinophils # (A) 0.1 k/uL (0-0.7); Eosinophils % (A) 1 %; HCT 40.3 % (34.0-46.0); HGB 13.1 gm/dL (11.4-16.0); Lymphocytes # (A) 1.9 k/uL (1.0-4.8); Lymphocytes % (A) 25 %; MCH 31.9 pg (25.0-35.0); MCHC 32.5 g/dL (31.0-37.0); MCV 98.3 fL (80.0-100.0); Mean Platelet Volume 7.7; Monocytes # (A) 0.4 k/uL (0-1.0); Monocytes % (A) 5 %; Neutrophils % (A) 67 %; Platelet Count 269 k/uL (150-450); RDW 12.5 % (11.5-15.5); WBC 7.5 k/uL (3.8-10.6)
[2022-04-12 22:14] LABS: Albumin 4.1 g/dL (3.5-5.0); Calcium 9.3 mg/dL (8.4-10.2); Magnesium 2.2 mg/dL (1.6-2.3); Potassium 4.4 mmol/L (3.5-5.1); Total Bilirubin 0.5 mg/dL (0.2-1.3); Total Protein 7.5 g/dL (6.3-8.2)
[2022-04-12 22:21] LABS: INR 0.9 (<1.2); Partial Thromboplastin Time 22.3 sec (22.0-30.0); Prothrombin Time 10.1 sec (9.0-12.0)
[2022-04-13 09:00] VITALS: PULSE 60; TEMP 97.6
[2022-04-13] MEDS ORDERED: ZOLPIDEM 5 MG TAB PO PRN (09:39)
[2022-04-13] MEDS ORDERED: LEVOTHYROXINE 75 MCG TAB PO SCH (10:00)
[2022-04-13] MEDS ORDERED: APIXABAN 5 MG TAB PO SCH (10:00)
--- NOTE | 2022-04-13 10:53 | P.HPIM ---
History of Present Illness Patient is a pleasant 82-year-old female came in with compensative chest pressure like sensation which started a 4 to be in atrial fibrillation patient was at the [facility] was subsequently transferred here patient does have history of atrial fibrillation paroxysmal on Eliquis for that. Patient is presently sinus rhythm converted to sinus rhythm. Patient was on Cardizem last night her heart rate went down to as low as 20s Cardizem was subsequently discontinued patient takes 12.5 mg twice a day of metoprolol which I'm increasing to 25 mg starting later today. Etiology will evaluated the patient. Patient has mildly elevated troponins of 0.33 and stable at that level. Patient denied any other symptoms at this time REVIEW OF SYSTEMS: CONSTITUTIONAL: No fever, no malaise, no fatigue. HEENT: No recent visual problems or hearing problems. Denied any sore throat. CARDIOVASCULAR: No PND, no syncope. PULMONARY: No shortness of breath, no cough, no hemoptysis. GASTROINTESTINAL: No diarrhea, no nausea, no vomiting, no abdominal pain. NEUROLOGICAL: No headaches, no weakness, no numbness. HEMATOLOGICAL: Denies any bleeding or petechiae. GENITOURINARY: Denies any burning micturition, frequency, or urgency. MUSCULOSKELETAL/RHEUMATOLOGICAL: Denies any joint pain, swelling, or any muscle pain. ENDOCRINE: Denies any polyuria or polydipsia. The rest of the 14-point review of systems is negative. PHYSICAL EXAMINATION: GENERAL: The patient is alert and oriented x3, not in any acute distress. Thin built female HEENT: Pupils are round and equally reacting to light. EOMI. No scleral icterus. No conjunctival pallor. Normocephalic, atraumatic. No pharyngeal erythema. No thyromegaly. CARDIOVASCULAR: S1 and S2 present. No murmurs, rubs, or gallops. PULMONARY: Chest is clear to auscultation, no wheezing or crackles. ABDOMEN: Soft, nontender, nondistended, normoactive bowel sounds. No palpable organomegaly. MUSCULOSKELETAL: No joint swelling or deformity. EXTREMITIES: No cyanosis, clubbing, or pedal edema. NEUROLOGICAL: Gross neurological examination did not reveal any focal deficits. SKIN: No rashes. Assessment and plan -Atrial fibrillation with rapid ventricular rate: No aggravating factor is evident at this time, we'll increase the dose of metoprolol, cardiology will evaluate the patient discharge metoprolol dosing as per cardiology patient will be resumed on Eliquis. Patient converted to sinus rhythm, patient probably can be discharged if cleared by cardiology -Troponin elevation: Secondary to atrial fibrillation further management as per cardiology -Gases visual reflux disease -Hyperlipidemia -Hypertension -Hypothyroidism DVT prophylaxis: On Eliquis Past Medical History Past Medical History: GERD/Reflux, Hyperlipidemia, Hypertension, Thyroid Disorder Additional Past Medical History / Comment(s): anemia History of Any Multi-Drug Resistant Organisms: None Reported Past Surgical History: Appendectomy, Bowel Resection, Cholecystectomy, Hysterec jamar Additional Past Surgical History / Comment(s): partial bowel resection with the hysterectomy Past Psychological History: Anxiety, Depression Smoking Status: Never smoker Past Alcohol Use History: None Reported Past Drug Use History: None Reported Medications and Allergies Home Medications Medication Instructions Recorded Confirmed Type Levothyroxine Sodium [Synthroid] 75 mcg PO DAILY 09/06/20 04/12/22 History Apixaban [Eliquis] 5 mg PO BID #60 tab 09/13/20 04/12/22 Rx Isosorbide Mononitrate ER [Imdur] 30 mg PO DAILY 04/12/22 04/12/22 History Metoprolol Tartrate [Lopressor] 12.5 mg PO BID 04/12/22 04/12/22 History Multivitamins, Thera [Multivitamin 1 tab PO DAILY 04/12/22 04/12/22 History (formulary)] Zolpidem [Ambien] 10 mg PO HS 04/12/22 04/12/22 History Allergies Allergy/AdvReac Type Severity Reaction Status Date / Time ranolazine Allergy Rash/Hives Verified 04/12/22 21:37 Physical Exam Vitals: Vital Signs Temp Pulse Pulse Resp BP BP Pulse Ox 04/13/22 09:01 174/81 04/13/22 09:00 97.6 F 60 15 183/81 97 04/13/22 04:00 62 16 137/63 93 L 04/12/22 23:06 97.8 F 64 16 144/66 96 04/12/22 21:59 98 18 107/71 98 04/12/22 21:49 98 18 107/71 98 04/12/22 21:08 92 04/12/22 20:00 97.8 F 113 H 18 145/94 95 Intake and Output 04/12/22 04/13/22 04/13/22 22:59 06:59 14:59 Intake Total 485 0 Balance 485 0 Intake: Oral 485 0 Other: Voiding Method Toilet # Voids 1 1 Weight 67.132 kg Results CBC & Chem 7: 04/12/22 21:48 04/12/22 21:48 Labs: Abnormal Lab Results - Last 24 Hours (Table) 04/12/22 04/12/22 04/13/22 Range/Units 21:48 21:48 00:29 Glucose 107 H (74-99) mg/dL Troponin I 0.332 H* 0.358 H* (0.000-0.034) ng/mL 04/13/22 Range/Units 04:36 Glucose (74-99) mg/dL Troponin I 0.335 H* (0.000-0.034) ng/mL
--- NOTE | 2022-04-13 10:54 | P.DS ---
Providers Date of admission: 04/12/22 21:14 Attending physician: Curt Oglesby Consults: 04/12/22 21:14 Consult Physician Urgent Consulting Provider: Les Frances Consult Reason/Comments: rvr Do you want consulting provider notified?: Yes, Notify in am Primary care physician: José Miguel Marques MD Hospital Course: Please deferred to my history of present illness for the details Patient Condition at Discharge: Stable Plan - Discharge Summary Discharge Rx Participant: Yes New Discharge Prescriptions: Continue Levothyroxine Sodium [Synthroid] 75 mcg PO DAILY Apixaban [Eliquis] 5 mg PO BID #60 tab Multivitamins, Thera [Multivitamin (formulary)] 1 tab PO DAILY Isosorbide Mononitrate ER [Imdur] 30 mg PO DAILY Zolpidem [Ambien] 10 mg PO HS Metoprolol Tartrate [Lopressor] 12.5 mg PO BID Discharge Medication List Levothyroxine Sodium [Synthroid] 75 mcg PO DAILY 09/06/20 [History] Apixaban [Eliquis] 5 mg PO BID #60 tab 09/13/20 [Rx] Isosorbide Mononitrate ER [Imdur] 30 mg PO DAILY 04/12/22 [History] Metoprolol Tartrate [Lopressor] 12.5 mg PO BID 04/12/22 [History] Multivitamins, Thera [Multivitamin (formulary)] 1 tab PO DAILY 04/12/22 [History] Zolpidem [Ambien] 10 mg PO HS 04/12/22 [History] Follow up Appointment(s)/Referral(s): Les Frances MD [STAFF PHYSICIAN] - 1 Week José Miguel Marques MD [Primary Care Provider] - 3 Days Discharge Disposition: HOME SELF-CARE
--- NOTE | 2022-04-13 12:19 | P.CRDCN ---
History of Present Illness History of present illness: HISTORY OF PRESENTING ILLNESS This is a pleasant 82-year-old female past medical history significant for paroxysmal atrial fibrillation on Eliquis, CAD, hypothyroidism and hyperten sergio. She follows in the office with Dr. Frances. We have been asked to see in consultation for Naty mckinney. Presented to the hospital with symptoms of chest pressure and palpitations. On arrival EKG was found to be in A. fib with RVR heart rate of 125. She was started on IV Cardizem infusion and subsequently converted to sinus rhythm. She is seen and examined sitting up in bed in no acute distress. She is maintaining sinus rhythm with a heart rate in the 60s. She has no further symptoms of palpitations or chest discomfort. Telemetry tracings reveal mostly sinus rhythm. Laboratory data reviewed, CBC unremarkable, sodium 139, potassium 4.4, creatinine 0.82, magnesium 2.2, troponin 0.332, 0.358, 0.335, proBNP 1560 and TSH 0.809. Most recent echocardiogram obtained in 2019 revealed preserved LV systolic function with ejection fraction 55-60%. REVIEW OF SYSTEMS At the time of my exam: CONSTITUTIONAL: Denies fever or chills. CARDIOVASCULAR: Denies chest pain, shortness of breath, orthopnea, PND or palpitations. RESPIRATORY: Denies cough. GASTROINTESTINAL: Denies abdominal pain, diarrhea, constipation, nausea or vomiting. MUSCULOSKELETAL: Denies myalgias. NEUROLOGIC: Denies numbness, tingling, headache or weakness. ENDOCRINE: Denies fatigue, weight change, polydipsia or polyurina. GENITOURINARY: Denies burning, hematuria or urgency with micturation. HEMATOLOGIC: Denies history of anemia or bleeding. PHYSICAL EXAMINATION Vital signs reviewed CONSTITUTIONAL: No apparent distress. HEENT: Head is normocephalic. Pupils are equal, round. Sclerae anicteric. Mucous membranes of the mouth are moist. No JVD. No carotid bruit. CHEST EXAMINATION: Lungs are clear to auscultation. No chest wall tenderness is noted on palpation or with deep breathing. HEART EXAMINATION: Regular rate and rhythm. S1, S2 heard. No murmurs, gallops or rub. ABDOMEN: Soft, nontender. EXTREMITIES: 2+ peripheral pulses, no lower extremity edema and no calf tenderness. NEUROLOGIC EXAMINATION: Patient is awake, alert and oriented x3. ASSESSMENT Paroxysmal atrial fibrillation with rapid ventricular rate Hypertension Hypothyroidism PLAN Adjust metoprolol to 25 mg daily in the morning. Continue eliquis as ordered. Stable for discharge from a cardiac perspective to follow-up in the office with Dr. Frances. Thank you kindly for this consultation. Nurse Practitioner note has been reviewed, I agree with a documented findings and plan of care. Patient was seen and examined. Past Medical History Past Medical History: GERD/Reflux, Hyperlipidemia, Hypertension, Thyroid Disorder Additional Past Medical History / Comment(s): anemia History of Any Multi-Drug Resistant Organisms: None Reported Past Surgical History: Appendectomy, Bowel Resection, Cholecystectomy, Hysterectomy Additional Past Surgical History / Comment(s): partial bowel resection with the hysterectomy Past Psychological History: Anxiety, Depression Smoking Status: Never smoker Past Alcohol Use History: None Reported Past Drug Use History: None Reported Medications and Allergies Home Medications Medication Instructions Recorded Confirmed Type Levothyroxine Sodium [Synthroid] 75 mcg PO DAILY 09/06/20 04/12/22 History Apixaban [Eliquis] 5 mg PO BID #60 tab 09/13/20 04/12/22 Rx Isosorbide Mononitrate ER [Imdur] 30 mg PO DAILY 04/12/22 04/12/22 History Metoprolol Tartrate [Lopressor] 12.5 mg PO BID 04/12/22 04/12/22 History Multivitamins, Thera [Multivitamin 1 tab PO DAILY 04/12/22 04/12/22 History (formulary)] Zolpidem [Ambien] 10 mg PO HS 04/12/22 04/12/22 History Allergies Allergy/AdvReac Type Severity Reaction Status Date / Time ranolazine Allergy Rash/Hives Verified 04/12/22 21:37 Physical Exam Vitals: Vital Signs Temp Pulse Pulse Resp BP BP Pulse Ox 04/13/22 09:01 174/81 04/13/22 09:00 97.6 F 60 15 183/81 97 04/13/22 04:00 62 16 137/63 93 L 04/12/22 23:06 97.8 F 64 16 144/66 96 04/12/22 21:59 98 18 107/71 98 04/12/22 21:49 98 18 107/71 98 04/12/22 21:08 92 04/12/22 20:00 97.8 F 113 H 18 145/94 95 Intake and Output 05/20/22 05/21/22 05/21/22 22:59 06:59 14:59 Intake Total 485 0 Balance 485 0 Intake: Oral 485 0 Other: Voiding Method Toilet Toilet # Voids 1 1 1 Weight 67.132 kg Results 04/12/22 21:48 04/12/22 21:48 Cardiac Enzymes 04/12/22 04/12/22 04/13/22 Range/Units 21:48 21:48 00:29 AST 32 (14-36) U/L Troponin I 0.332 H* 0.358 H* (0.000-0.034) ng/mL 04/13/22 Range/Units 04:36 AST (14-36) U/L Troponin I 0.335 H* (0.000-0.034) ng/mL Coagulation 04/12/22 Range/Units 21:48 PT 10.1 (9.0-12.0) sec APTT 22.3 (22.0-30.0) sec CBC 04/12/22 Range/Units 21:48 WBC 7.5 (3.8-10.6) k/uL RBC 4.10 (3.80-5.40) m/uL Hgb 13.1 (11.4-16.0) gm/dL Hct 40.3 (34.0-46.0) % Plt Count 269 (150-450) k/uL Comprehensive Metabolic Panel 04/12/22 Range/Units 21:48 Sodium 139 (137-145) mmol/L Potassium 4.4 (3.5-5.1) mmol/L Chloride 103 (98-107) mmol/L Carbon Dioxide 30 (22-30) mmol/L BUN 14 (7-17) mg/dL Creatinine 0.82 (0.52-1.04) mg/dL Glucose 107 H (74-99) mg/dL Calcium 9.3 (8.4-10.2) mg/dL AST 32 (14-36) U/L ALT 19 (4-34) U/L Alkaline Phosphatase 85 (38-126) U/L Total Protein 7.5 (6.3-8.2) g/dL Albumin 4.1 (3.5-5.0) g/dL Current Medications Generic Name Dose Route Start Last Admin Trade Name Freq PRN Reason Stop Dose Admin Apixaban 5 mg 04/13/22 10:00 04/13/22 10:04 Apixaban 5 Mg Tab PO 5 mg BID DOROTHY Administration Protocol Diltiazem HCl 125 mg/ Sodium 125 mls @ 7.5 mls/hr 04/12/22 20:00 04/12/22 20:10 Chloride IV 7.5 mg/hr .[id number] DOROTHY 7.5 mls/hr Administration 7.5 MG/HR Isosorbide Mononitrate 30 mg 04/14/22 09:00 Isosorbide Mononitrate Er 30 Mg Tab.Er.24h PO DAILY [facility] Levothyroxine Sodium 75 mcg 04/13/22 10:00 04/13/22 10:04 Levothyroxine 75 Mcg Tab PO 75 mcg DAILY@0630 [facility] Administration Metoprolol Tartrate 25 mg 04/13/22 21:00 Metoprolol Tartrate 25 Mg Tab PO BID [facility] Multivitamins 1 each 04/14/22 09:00 Multivitamins, Thera 1 Each Tab PO DAILY [facility] Zolpidem Tartrate 10 mg 04/13/22 09:39 Zolpidem 5 Mg Tab PO HS PRN Insomnia Intake and Output 04/12/22 04/13/22 04/13/22 22:59 06:59 14:59 Intake Total 485 0 Balance 485 0 Intake: Oral 485 0 Other: Voiding Method Toilet Toilet # Voids 1 1 1 Weight 67.132 kg 04/12/22 21:48 04/12/22 21:48
[2022-04-13 12:35] VITALS: BP 178/81; RESP 18
[2022-04-13] MEDS ORDERED: amLODIPine 5 MG TAB PO SCH (12:45)
[2022-04-13] MEDS ORDERED: ISOSORBIDE MONONITRATE ER 30 MG TAB.ER.24H PO STA (13:08)
[2022-04-13] MEDS ORDERED: METOPROLOL TARTRATE 25 MG TAB PO SCH (21:00)
[2022-04-14] MEDS ORDERED: MULTIVITAMINS, THERA 1 EACH TAB PO SCH (09:00)
[2022-04-14] MEDS ORDERED: ISOSORBIDE MONONITRATE ER 30 MG TAB.ER.24H PO SCH (09:00)
[2022-04-14] MEDS ORDERED: METOPROLOL TARTRATE 25 MG TAB PO SCH (09:00)
== END 2022-04-13 15:07 | disposition home or self-care (01) ==
LOC: EC 19:54 → 3SCARD 21:14 → INTOOBSV 21:14 → 3SCARD 22:36 → UNDODISIN 04-13 15:07
PROVIDERS: ADMIT Hospitalist; ATTEND Hospitalist
DX: I48.0 Paroxysmal atrial fibrillation (principal); I10 Essential (primary) hypertension; E03.9 Hypothyroidism, unspecified; I25.10 Atherosclerotic heart disease of native coronary artery without angina pectoris; E78.5 Hyperlipidemia, unspecified; D64.9 Anemia, unspecified; K21.9 Gastro-esophageal reflux disease without esophagitis; F32.A Depression, unspecified; F41.9 Anxiety disorder, unspecified; Z79.01 Long term (current) use of anticoagulants; Z79.890 Hormone replacement therapy; Z79.899 Other long term (current) drug therapy; Z88.8 Allergy status to other drugs, medicaments and biological substances; Z90.49 Acquired absence of other specified parts of digestive tract; Z90.710 Acquired absence of both cervix and uterus; Z87.19 Personal history of other diseases of the digestive system
CPT/HCPCS: 99285; 93005; 83880; 80053; 84443; 83735; 84484 ×2; 85025; 85610; 85730; G0378 ×2; 96365; 96366

== ENCOUNTER 2022-04-13 16:47 | Emergency (ER) | payer MEDICARE ==
[2022-04-13 17:24] VITALS: RESP 14
--- NOTE | 2022-04-13 17:45 | ED ---
General Adult HPI - General Chief complaint: Syncope Stated complaint: Syncope Time Seen by Provider: 04/13/22 17:06 Source: patient, EMS, RN notes reviewed, old records reviewed Mode of arrival: EMS - History of Present Illness Initial comments: 82 -year-old female presenting for evaluation of momentary altered mental status. Patient was just discharged from the hospital and on her way home she was traveling with her daughter. She became unresponsive and was staring forwar d. There is no seizure activity. There is no preceding palpitations or chest pain. She is alert and oriented time my evaluation without complaints. She was transported by paramedics with a normal blood glucose, normal vital signs. She has history of atrial fibrillation and is on Eliquis - Related Data Home Medications Medication Instructions Recorded Confirmed Levothyroxine Sodium [Synthroid] 75 mcg PO DAILY 09/06/20 04/13/22 Isosorbide Mononitrate ER [Imdur] 30 mg PO DAILY 04/12/22 04/13/22 Multivitamins, Thera [Multivitamin 1 tab PO DAILY 04/12/22 04/13/22 (formulary)] Zolpidem [Ambien] 10 mg PO HS 04/12/22 04/13/22 Previous Rx's Medication Instructions Recorded Apixaban [Eliquis] 5 mg PO BID #60 tab 09/13/20 Metoprolol Tartrate [Lopressor] 25 mg PO DAILY #0 04/13/22 Allergies Allergy/AdvReac Type Severity Reaction Status Date / Time ranolazine Allergy Rash/Hives Verified 04/13/22 18:22 Review of Systems ROS Statement: Those systems with pertinent positive or pertinent negative responses have been documented in the HPI. ROS Other: All systems not noted in ROS Statement are negative. Past Medical History Past Medical History: GERD/Reflux, Hyperlipidemia, Hypertension, Thyroid Disorder Additional Past Medical History / Comment(s): anemia History of Any Multi-Drug Resistant Organisms: None Reported Past Surgical History: Appendectomy, Bowel Resection, Cholecystectomy, H ysterectomy Additional Past Surgical History / Comment(s): partial bowel resection with the hysterectomy Past Psychological History: Anxiety, Depression Smoking Status: Never smoker Past Alcohol Use History: None Reported Past Drug Use History: None Reported General Exam General appearance: alert, in no apparent distress Head exam: Present: atraumatic, normocephalic Eye exam: Present: normal appearance, PERRL ENT exam: Present: normal exam Neck exam: Present: normal inspection. Absent: tenderness, meningismus Respiratory exam: Present: normal lung sounds bilaterally. Absent: respiratory distress, wheezes Cardiovascular Exam: Present: regular rate, normal rhythm GI/Abdominal exam: Present: soft. Absent: distended, tenderness, guarding Extremities exam: Present: normal inspection, normal capillary refill. Absent: pedal edema Neurological exam: Present: alert, oriented X3, CN II-XII intact. Absent: motor sensory deficit Psychiatric exam: Present: normal affect, normal mood Skin exam: Present: warm, dry, intact. Absent: cyanosis, diaphoretic Course Vital Signs 04/13/22 17:18 Temperature 97.6 F Pulse Rate 20 L Respiratory 14 Rate Blood Pressure 138/78 EKG Findings - EKG Comments: EKG Findings:: EKG: Sinus rhythm with inferior T-wave inversion and ventricular rate of 65, MI interval 201, QRS duration 86, QTC 422 Medical Decision Making - Medical Decision Making 82-year-old female with a brief episode of altered mental status and loss consciousness. Symptoms completely resolved. She has no complaints in the emergency department. No chest pain or palpitations. No seizure activity reported. She is alert. 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 Blood glucose is stable. Patient herself has no complaints and is eager for discharge. I did perform a head CT because she is anticoagulated with this altered level of consciousness although was momentary. This is negative. - Lab Data Result diagrams: 04/13/22 18:00 04/13/22 18:00 Lab Results 04/13/22 04/13/22 04/13/22 Range/Units 18:00 18:00 18:00 WBC 8.6 (3.8-10.6) k/uL RBC 3.96 (3.80-5.40) m/uL Hgb 13.1 (11.4-16.0) gm/dL Hct 39.2 (34.0-46.0) % MCV 99.0 (80.0-100.0) fL MCH 33.0 (25.0-35.0) pg MCHC 33.4 (31.0-37.0) g/dL RDW 13.0 (11.5-15.5) % Plt Count 290 (150-450) k/uL MPV 6.8 Neutrophils % 79 % Lymphocytes % 15 % Monocytes % 3 % Eosinophils % 1 % Basophils % 0 % Neutrophils # 6.8 (1.3-7.7) k/uL Lymphocytes # 1.3 (1.0-4.8) k/uL Monocytes # 0.3 (0-1.0) k/uL Eosinophils # 0.1 (0-0.7) k/uL Basophils # 0.0 (0-0.2) k/uL PT 10.4 (9.0-12.0) sec INR 0.9 (<1.2) APTT 24.0 (22.0-30.0) sec Sodium 136 L (137-145) mmol/L Potassium 4.0 (3.5-5.1) mmol/L Chloride 101 (98-107) mmol/L Carbon Dioxide 30 (22-30) mmol/L Anion Gap 5 mmol/L BUN 19 H (7-17) mg/dL Creatinine 1.19 H (0.52-1.04) mg/dL Est GFR (CKD-EPI)AfAm 49 (>60 ml/min/1.73 sqM) Est GFR (CKD-EPI)NonAf 43 (>60 ml/min/1.73 sqM) Glucose 132 H (74-99) mg/dL Calcium 9.1 (8.4-10.2) mg/dL Magnesium 2.1 (1.6-2.3) mg/dL Total Bilirubin 0.4 (0.2-1.3) mg/dL AST 30 (14-36) U/L ALT 19 (4-34) U/L Alkaline Phosphatase 86 (38-126) U/L Total Protein 7.4 (6.3-8.2) g/dL Albumin 4.1 (3.5-5.0) g/dL Disposition Clinical Impression: Syncope Disposition: HOME SELF-CARE Condition: Fair Instructions (If sedation given, give patient instructions): Syncope (DC) Is patient prescribed a controlled substance at d/c from ED?: No Referrals: José Miguel Marques MD [Primary Care Provider] - 1-2 days Sonja Hayes MD [STAFF PHYSICIAN] - 1-2 days Time of Disposition: 20:21
[2022-04-13 18:17] LABS: Basophils % (A) 0 %; Eosinophils # (A) 0.1 k/uL (0-0.7); Eosinophils % (A) 1 %; HCT 39.2 % (34.0-46.0); HGB 13.1 gm/dL (11.4-16.0); Lymphocytes # (A) 1.3 k/uL (1.0-4.8); Lymphocytes % (A) 15 %; MCHC 33.4 g/dL (31.0-37.0); Mean Platelet Volume 6.8; Monocytes # (A) 0.3 k/uL (0-1.0); Monocytes % (A) 3 %; Neutrophils # (A) 6.8 k/uL (1.3-7.7); Neutrophils % (A) 79 %; Platelet Count 290 k/uL (150-450); RBC 3.96 m/uL (3.80-5.40); WBC 8.6 k/uL (3.8-10.6)
[2022-04-13 18:25] LABS: INR 0.9 (<1.2); Prothrombin Time 10.4 sec (9.0-12.0)
[2022-04-13 18:31] LABS: Calcium 9.1 mg/dL (8.4-10.2); Magnesium 2.1 mg/dL (1.6-2.3); Total Bilirubin 0.4 mg/dL (0.2-1.3)
[2022-04-13 19:08] LABS: Albumin 4.1 g/dL (3.5-5.0); Total Protein 7.4 g/dL (6.3-8.2)
--- NOTE | 2022-04-13 19:29 | CT ---
EXAM: CT brain wo con CLINICAL HISTORY: Syncope. COMPARISON: 09/24/2020 TECHNIQUE: Contiguous axial noncontrast images of the brain were obtained. Coronal and sagittal refor mats were generated and reviewed. Automated dose control was used for this exam. FINDINGS: There is no evidence for intracranial hemorrhage, mass effect or midline shift. There is mild white m atter disease. Ventricular size and configuration is within normal limits for degree of parenchymal volume. The paranasal sinuses are clear. The mastoid air cells are clear. No evidence for calvarial fracture. IMPRESSION: No acute intracranial abnormality.
[2022-04-13 20:33] VITALS: BP 113/69; PULSE 76; TEMP 97.9
== END 2022-04-13 20:50 | disposition home or self-care (01) ==
LOC: EC 16:47
DX: R55 Syncope and collapse (principal); R41.82 Altered mental status, unspecified; I10 Essential (primary) hypertension; E07.9 Disorder of thyroid, unspecified; I48.91 Unspecified atrial fibrillation; Z88.8 Allergy status to other drugs, medicaments and biological substances; Z79.899 Other long term (current) drug therapy; Z79.890 Hormone replacement therapy; Z79.01 Long term (current) use of anticoagulants
CPT/HCPCS: 36415; 70450; 80053; 83735; 85025; 85610; 85730; 93005; 99285

== ENCOUNTER 2024-11-27 19:57 | Inpatient (IN) | payer MEDICARE ==
[2024-11-27 20:04] LABS: Glucose,Whole Blood 93 mg/dL (70-110)
--- NOTE | 2024-11-27 20:15 | ED ---
Recheck HPI - General Chief Complaint: Neuro Symptoms/Deficit Stated Complaint: Neuro symtoms Time Seen by Provider: 11/27/24 20:00 Source: patient, old records reviewed, Caregiver Mode of arrival: EMS Limitations: no limitations - History of Present Illness Initial Comments: This is a 84 female to ER for evaluation of facial droop patient accepted in [facility] for CVA Complaint: other (Facial droop) -: hour(s) Returns Today for: other Symptoms Since Prior Visit: no new symptoms Associated Symptoms: none Treatments Prior to Arrival: other (0) - Related Data Home Medications Medication Instructions Recorded Confirmed Levothyroxine Sodium [Synthroid] 75 mcg PO DAILY@69909/06/20 11/27/24 Isosorbide Mononitrate ER [Imdur] 30 mg PO DAILY@69904/12/22 11/27/24 ARIPiprazole [Abilify] 2 mg PO DAILY@69911/27/24 11/27/24 Acetaminophen Tab [Tylenol] 650 mg PO Q4H PRN 11/27/24 11/27/24 Acetaminophen Tab [Tylenol] 650 mg PO TID@0700,1300,199911/27/24 11/27/24 Apixaban [Eliquis] 5 mg PO BID@0700,199911/27/24 11/27/24 Calcium Carbonate [Tums] 1,000 mg PO Q2H PRN 11/27/24 11/27/24 Esomeprazole Magnesium [NexIUM] 20 mg PO DAILY@69911/27/24 11/27/24 FLUoxetine HCL [PROzac] 40 mg PO DAILY@69911/27/24 11/27/24 Magnesium Hydroxide [Milk of 2,400 mg PO DAILY PRN 11/27/24 11/27/24 Magnesia] Melatonin 3 mg PO HS@199911/27/24 11/27/24 buPROPion XL [Wellbutrin XL] 150 mg PO DAILY@69911/27/24 11/27/24 guaiFENesin [guaiFENesin Oral 100 mg PO Q4H PRN 11/27/24 11/27/24 Solution] hydrOXYzine HCL [Atarax] 25 mg PO Q8H PRN 11/27/24 11/27/24 Allergies Allergy/AdvReac Type Severity Reaction Status Date / Time ranolazine Allergy Rash/Hives Verified 11/27/24 20:08 Review of Systems ROS Statement: Those systems with pertinent positive or pertinent negative responses have been documented in the HPI. ROS Other: All systems not noted in ROS Statement are negative. Past Medical History Past Medical History: GERD/Reflux, Hyperlipidemia, Hypertension, Thyroid Disorder Additional Past Medical History / Comment(s): anemia History of Any Multi-Drug Resistant Organisms: None Reported Past Surgical History: Appendectomy, Bowel Resection, Cholecystectomy, Hysterectomy Additional Past Surgical History / Comment(s): partial bowel resection with the hysterectomy Past Psychological History: Anxiety, Depression Smoking Status: Never smoker Past Alcohol Use History: None Reported Past Drug Use History: None Reported General Exam - General Exam Comments Initial Comments: NIH is focal with facial droop Limitations: no limitations General appearance: alert, in no apparent distress Head exam: Present: atraumatic, normocephalic, normal inspection Eye exam: Present: normal appearance, PERRL, EOMI. Absent: scleral icterus, conjunctival injection, periorbital swelling ENT exam: Present: normal exam, mucous membranes moist Neck exam: Present: normal inspection. Absent: tenderness, meningismus, lymphadenopathy Respiratory exam: Present: normal lung sounds bilaterally. Absent: respiratory distress, wheezes, rales, rhonchi, stridor Cardiovascular Exam: Present: regular rate, normal rhythm, normal heart sounds. Absent: systolic murmur, diastolic murmur, rubs, gallop, clicks GI/Abdominal exam: Present: soft, normal bowel sounds. Absent: distended, tenderness, guarding, rebound, rigid Extremities exam: Present: normal inspection, full ROM, normal capillary refill. Absent: tenderness, pedal edema, joint swelling, calf tenderness Back exam: Present: normal inspection Neurological exam: Present: alert, oriented X3, CN II-XII intact Psychiatric exam: Present: normal affect, normal mood Skin exam: Present: warm, dry, intact, normal color. Absent: rash Course Vital Signs 11/27/24 11/27/24 19:59 20:07 Temperature 98.1 F Pulse Rate 61 Respiratory 16 Rate Blood Pressure 175/96 O2 Sat by Pulse 94 L Oximetry - Reevaluation(s) Reevaluation #1: 11/27/24 20:31 Medical record is reviewed Reevaluation #2: 11/27/24 20:31 Patient has no change in symptoms still with facial droop Reevaluation #3: 11/27/24 20:33 Patient informed of results and questions answered Reevaluation #4: Was pt. sent in by a medical professional or institution (MANGO Chun, SECTION LABORER, urgent care, hospital, or jail...) When possible be specific @ -no Did you speak to anyone other than the patient for history (EMS, parent, family, police, friend...)? What history was obtained from this source @ -no Did you review nursing and triage notes (agree or disagree)? Why? @ -agree Are old charts reviewed (outside hosp., previous admission, EMS record, old EKG, old radiological studies, urgent care reports/EKG's, jail records)? Report findings @ -yes Differential Diagnosis (chest pain, altered mental status, abdominal pain women, abdominal pain men, vaginal bleeding, weakness, fever, dyspnea, syncope, headache, dizziness, GI bleed, back pain, seizure, CVA, palpatations, mental health, musculoskeletal)? @ -prior EKG interpreted by me (3pts min.). @ -yes X-rays interpreted by me (1pt min.). @ -yes negative for acute disease CT interpreted by me (1pt min.). @ -no U/S interpreted by me (1pt. min.). @ -no What testing was considered but not performed or refused? (CT, X-rays, U/S, labs)? Why? @ -none What meds were considered but not given or refused? Why? @ -none Did you discuss the management of the patient with other professionals (professionals i.e. MANGO Chun, SECTION LABORER, lab, RT, psych nurse, social work specialist, signing agent, teacher, data officer, correctional case records supervisor)? Give summary @ -no Was smoking cessation discussed for >3mins.? @ -no Was critical care preformed (if so, how long)? @ -no Were there social determinants of health that impacted care today? How? (Homelessness, low income, unemployed, alcoholism, drug addiction, transportation, low edu. Level, literacy, decrease access to med. care, mcc, rehab)? @ -none Was there de-escalation of care discussed even if they declined (Discuss DNR or withdrawal of care, Hospice)? DNR status @ -no What co-morbidities impacted this encounter? (DM, HTN, Smoking, COPD, CAD, Cancer, CVA, ARF, Chemo, Hep., AIDS, mental health diagnosis, sleep apnea, morbid obesity)? @ -none Was patient admitted / discharged? Hospital course, mention meds given and route, prescriptions, significant lab abnormalities, going to OR and other pertinent info. @ - Undiagnosed new problem with uncertain prognosis? @ -no Drug Therapy requiring intensive monitoring for toxicity (Heparin, Nitro, Insulin, Cardizem)? @ -no Were any procedures done? @ -no Diagnosis/symptom? @ - Acute, or Chronic, or Acute on Chronic? @ -Acute Uncomplicated (without systemic symptoms) or Complicated (systemic symptoms)? @ -Complicated Side effects of treatment? @ -no Exacerbation, Progression, or Severe Exacerbation? @ -exacerbation Poses a threat to life or bodily function? How? (Chest pain, USA, ME, pneumonia, PE, COPD, DKA, ARF, appy, cholecystitis, CVA, Diverticulitis, Homicidal, Suicidal, threat to staff... and all critical care pts) @ -yes Reevaluation #5: Differential CVA Ischemic stroke, hemorrhagic stroke, brain tumor, atypical migraine, Wernicke's encephalopathy, seizure, multiple sclerosis, meningitis, encephalitis, hypoglycemia, Guillain-Mayorga, electrolytes disturbance, myasthenia gravis.... This is not meant to be an all-inclusive list - Consultations Consultation #1: Spoke with sound who agrees to admit this patient Medical Decision Making - Medical Decision Making 84 female accepted for CVA excepted in transfer for CVA - Lab Data Lab Results 11/27/24 Range/Units 20:02 POC Glucose (mg/dL) 93 (70-110) mg/dL POC Glu Health Care Marketing Manager ID Hailee Kaplan - EKG Data -: EKG Interpreted by Me (EKG is bradycardia 58 QRS 75 QTc 411) Disposition Clinical Impression: Cerebrovascular accident (CVA) Disposition: ADMITTED IP TO THIS HOSP Condition: Serious Is patient prescribed a controlled substance at d/c from ED?: No Referrals: Nonstaff,Physician [Primary Care Provider] - 1-2 days Time of Disposition: 20:30
[2024-11-27] MEDS: ATORVASTATIN 80 MG TAB PO SCH (20:59)
[2024-11-27] MEDS: SODIUM CHLORIDE 0.9% 1,000 ML IV SCH (20:59)
--- NOTE | 2024-11-27 23:40 | P.HPIM ---
History of Present Illness H&P Date: 11/27/24 Chief Complaint: Right-sided facial droop Patient is a very pleasant 84-year-old female with past medical history of A- fib, hypertension, hyperlipidemia, hypothyroidism, GERD, anxiety, and depression presents to the ED with chief complaint of right-sided facial droop. Patient is a transfer from [facility]. Patient was evaluated for right sided facial droop. Per review of outside records, the patient's daughter stated that on Friday she was in her usual state of health. However today when her daughter visited she noticed a very obvious right-sided facial droop. patient mentioned that she had lunch today with a group of friends , and no one mentioned/noticed any abnormality on her face. The patient denies any weakness in her upper or lower extremities, slurred speech. Patient denies any chest pain, shortness of breath, nausea, vomiting, diarrhea, fevers, chills. Vitals on admission temperature 98.1, pulse rate 61 bpm, blood pressure 175/96, O2 saturation 94% on room air EKG independently interpreted as sinus bradycardia with ventricular rate of 58 bpm and QTc of 411 ms Labs on admission show glucose of 93. Review of systems: Pertinent positives and negatives as discussed in HPI, a complete review of systems was performed and all other systems are negative. PMH: Hypertension, hyperlipidemia, hypothyroidism, GERD, anxiety, depression Allergies: None Social history: Tobacco: None Alcohol: None Recreational drugs: None Travel: None Sick contacts: None Physical examination: Vital signs reviewed General: nontoxic, no distress, appears at stated age Derm: warm, dry, intact Head: atraumatic, normocephalic, symmetric Eyes: anicteric sclera Mouth: no lip lesion, mucus membranes moist Cardiovascular: S1 S2 reg, no murmur Lungs: CTA bilateral, no rhonchi, no rales, no accessory muscle use Abdominal: soft, non-tender to palpation, nondistended Extremities: No cyanosis, clubbing, or pedal edema. Neuro: Alert, Oriented to person, time and place, Gross neurological examination did not reveal any focal deficits. Cranial nerves II to XII grossly intact. except for right VII CN with droop at the corner of the mouth , Bilateral upper and lower extremity muscle strength intact and sensation intact. Psych: well appearing, appropriate affect Assessment/Plan: 84 year old female with hypertension and hyperlipidemia , afib , presented to an outside facility with right sided facial droop , transferred for neurology evaluation , I discussed the case with ED doc and I accepted the admission for acute stroke . Active: CVA Continue aspirin 81 mg daily Continue Plavix 75 mg daily for 21 days Initiate Lipitor 80 mg daily Neurochecks per protocol Consult neurology Consult PT/OT Consult speech therapy check Echocardiogram with bubble study Cardiac monitoring fall precautions permissive hypertension X 24-48 hrs PRN BP meds if SBP >220 CT brain and CTA head and neck no acute pathology as reported verbally by ED doc Chronic: A-fib Resume Eliquis 5 mg twice daily Hyperlipidemia Continue Lipitor 80 mg daily Hypertension Will hold home meds for permissive hypertension Hypothyroidism Continue Synthroid 75 mcg daily GERD Continue Nexium 20 mg daily Continue Tums as needed Anxiety Continue hydroxyzine 25 mg every 8 hours as needed Depression continue fluoxetine 40 mg daily Continue Wellbutrin 150 mg daily Continue aripiprazole 2 mg daily F: 0.9% NS at 100 mL/hr E: Replete as needed N: Pending swallow evaluation A: Bedrest DVT prophylaxis: eliquis 5 mg bid for afib The patient is admitted with an anticipated more than 2 midnight stay for evaluation of CVA CODE STATUS: Full code Discussed with: Patient Anticipated discharge place: Pending clinical course I have seen and evaluated the patient today. I Discussed the case with the resident and agree with the resident's findings I edited the assessment and plan as necessary as documented in the resident's note. Past Medical History Past Medical History: GERD/Reflux, Hyperlipidemia, Hypertension, Thyroid Disord er Additional Past Medical History / Comment(s): anemia History of Any Multi-Drug Resistant Organisms: None Reported Past Surgical History: Appendectomy, Bowel Resection, Cholecystectomy, Hysterectomy Additional Past Surgical History / Comment(s): partial bowel resection with the hysterectomy Past Psychological History: Anxiety, Depression Smoking Status: Never smoker Past Alcohol Use History: None Reported Past Drug Use History: None Reported Medications and Allergies Home Medications Medication Instructions Recorded Confirmed Type Levothyroxine Sodium [Synthroid] 75 mcg PO DAILY@0700 09/06/20 11/27/24 History Isosorbide Mononitrate ER [Imdur] 30 mg PO DAILY@0700 04/12/22 11/27/24 History ARIPiprazole [Abilify] 2 mg PO DAILY@0700 11/27/24 11/27/24 History Acetaminophen Tab [Tylenol] 650 mg PO Q4H PRN 11/27/24 11/27/24 History Acetaminophen Tab [Tylenol] 650 mg PO TID@699,1299,199911/27/24 11/27/24 History Apixaban [Eliquis] 5 mg PO BID@699,199911/27/24 11/27/24 History Calcium Carbonate [Tums] 1,000 mg PO Q2H PRN 11/27/24 11/27/24 History Esomeprazole Magnesium [NexIUM] 20 mg PO DAILY@69911/27/24 11/27/24 History FLUoxetine HCL [PROzac] 40 mg PO DAILY@69911/27/24 11/27/24 History Magnesium Hydroxide [Milk of 2,400 mg PO DAILY PRN 11/27/24 11/27/24 History Magnesia] Melatonin 3 mg PO HS@199911/27/24 11/27/24 History buPROPion XL [Wellbutrin XL] 150 mg PO DAILY@69911/27/24 11/27/24 History guaiFENesin [guaiFENesin Oral 100 mg PO Q4H PRN 11/27/24 11/27/24 History Solution] hydrOXYzine HCL [Atarax] 25 mg PO Q8H PRN 11/27/24 11/27/24 History Allergies Allergy/AdvReac Type Severity Reaction Status Date / Time ranolazine Allergy Rash/Hives Verified 11/27/24 20:08 Physical Exam Vitals: Vital Signs Temp Pulse Resp BP Pulse Ox 11/27/24 20:56 58 L 16 157/83 94 L 11/27/24 20:07 61 16 175/96 94 L 11/27/24 19:59 98.1 F Intake and Output 11/27/24 11/27/24 11/27/24 06:59 14:59 22:59 Other: Weight 63.503 kg
[2024-11-28] MEDS ORDERED: ACETAMINOPHEN TAB 325 MG TAB PO PRN (00:59)
[2024-11-28] MEDS: CLOPIDOGREL 75 MG TAB PO SCH (01:43)
[2024-11-28] MEDS: APIXABAN 5 MG TAB PO SCH (08:18)
[2024-11-28] MEDS: PANTOPRAZOLE 40 MG TABLET PO SCH (08:18)
[2024-11-28] MEDS: FLUoxetine HCL 20 MG CAP PO SCH (08:18)
[2024-11-28] MEDS: buPROPion XL 150 MG TAB.ER.24H PO SCH (08:18)
[2024-11-28] MEDS: ARIPiprazole 2 MG TAB PO SCH (08:18)
[2024-11-28] MEDS: LEVOTHYROXINE 75 MCG TAB PO SCH (08:18)
[2024-11-28] MEDS: ASPIRIN 81 MG PO SCH (08:19)
[2024-11-28] MEDS ORDERED: ASPIRIN 325 MG TAB PO SCH (09:00)
[2024-11-28 09:57] LABS: HCT 37.6 % (34.0-46.0); HGB 12.1 gm/dL (11.4-16.0); MCH 32.7 pg (25.0-35.0); MCHC 32.3 g/dL (31.0-37.0); MCV 101.5 fL (80.0-100.0); Macrocytosis Slight; Platelet Count 249 k/uL (150-450); WBC 6.6 k/uL (3.8-10.6)
[2024-11-28 10:09] LABS: ALT 20 U/L (4-34); AST 24 U/L (14-36); African American GFR (CKD) 63 (>60 ml/min/1.73 sqM); Alkaline Phosphatase 108 U/L (38-126); Anion Gap 8 mmol/L; Blood Urea Nitrogen 18 mg/dL (7-17); Calcium 9.4 mg/dL (8.4-10.2); Carbon Dioxide 26 mmol/L (22-30); Chloride 103 mmol/L (98-107); Glucose 123 mg/dL (74-99); Non-African American GFR(CKD) 55 (>60 ml/min/1.73 sqM); Potassium 3.8 mmol/L (3.5-5.1); Sodium 137 mmol/L (137-145); Total Bilirubin 0.5 mg/dL (0.2-1.3); Total Protein 7.2 g/dL (6.3-8.2)
--- NOTE | 2024-11-28 13:51 | P.CNNES ---
History of Present Illness Consult date: 11/28/24 Requesting physician: Antwon Young Reason for Consult: cva History of Present Illness: This is an 84-year-old woman who was transferred from outside facility for further evaluation of right facial droop. Seems the patient was transferred from [facility] for further evaluation of stroke. Patient daughter is at bedside who provides some of the history. The daughter visited the patient at her assisted living facility and she noticed that the patient had right facial droop at 1:15 PM when she visited her. Her last time she seen the patient was on 11/24/2019 5 in the afternoon and she was normal. Per the patient she did not have much interaction with people but she was seen by people in her assisted living facility and she was not notified she had facial droop. She has not noticed that she had slurring of the speech. Patient does not have any history of stroke in the past. She does have a history of atrial fibrillation and she is on Eliquis and she is compliant taking the medication. She does have a history of hypertension as well as hypercholesteremia. Per the daughter she stated that yesterday the patient had right leg jerking and unsure how long it lasted for but she was respond during the episode and that was not her normal base. Patient does not have any history of cancer. No history of seizure. Some of the workup during this hospital visit consisted of: TSH is 2.930. I reviewed the rest of the lab workup. At the outside facility patient had CT of the head which was unremarkable for any acute stroke. CT angiography of the head and neck at the outside hospital is reported as right ICA stenosis of 60%. 70% distal left segment . Small basilar artery. I assume no IV thrombolytic since patient is on anticoagulation risk outweigh the benefit. Review of Systems As per HPI. Past Medical History Past Medical History: GERD/Reflux, Hyperlipidemia, Hypertension, Thyroid Disorder Additional Past Medical History / Comment(s): anemia History of Any Multi-Drug Resistant Organisms: None Reported Past Surgical History: Appendectomy, Bowel Resection, Cholecystectomy, Hysterectomy Additional Past Surgical History / Comment(s): partial bowel resection with the hysterectomy Past Psychological History: Anxiety, Depression Smoking Status: Never smoker Past Alcohol Use History: None Reported Past Drug Use History: None Reported Medications and Allergies Home Medications Medication Instructions Recorded Confirmed Type Levothyroxine Sodium [Synthroid] 75 mcg PO DAILY@0700 10/14/20 01/04/25 History Isosorbide Mononitrate ER [Imdur] 30 mg PO DAILY@69904/12/22 11/27/24 History ARIPiprazole [Abilify] 2 mg PO DAILY@69911/27/24 11/27/24 History Acetaminophen Tab [Tylenol] 650 mg PO Q4H PRN 11/27/24 11/27/24 History Acetaminophen Tab [Tylenol] 650 mg PO TID@07,1299,199911/27/24 11/27/24 History Apixaban [Eliquis] 5 mg PO BID@699,199911/27/24 11/27/24 History Calcium Carbonate [Tums] 1,000 mg PO Q2H PRN 11/27/24 11/27/24 History Esomeprazole Magnesium [NexIUM] 20 mg PO DAILY@69911/27/24 11/27/24 History FLUoxetine HCL [PROzac] 40 mg PO DAILY@69911/27/24 11/27/24 History Magnesium Hydroxide [Milk of 2,400 mg PO DAILY PRN 11/27/24 11/27/24 History Magnesia] Melatonin 3 mg PO HS@199911/27/24 11/27/24 History buPROPion XL [Wellbutrin XL] 150 mg PO DAILY@69911/27/24 11/27/24 History guaiFENesin [guaiFENesin Oral 100 mg PO Q4H PRN 11/27/24 11/27/24 History Solution] hydrOXYzine HCL [Atarax] 25 mg PO Q8H PRN 11/27/24 11/27/24 History Allergies Allergy/AdvReac Type Severity Reaction Status Date / Time ranolazine Allergy Rash/Hives Verified 11/27/24 20:08 Physical Examination - Vital Signs Vital Signs: Vital Signs Temp Pulse Resp BP Pulse Ox 11/28/24 12:21 15 11/28/24 11:37 98.5 F 55 L 15 156/78 96 11/28/24 09:54 98.5 F 52 L 18 176/80 96 11/28/24 08:23 56 L 18 177/81 93 L 11/28/24 07:59 95 11/28/24 07:30 97.6 F 56 L 18 204/82 95 11/28/24 05:29 56 L 16 184/76 96 11/28/24 01:40 64 16 183/84 95 11/27/24 22:04 62 16 190/88 96 11/27/24 20:56 58 L 16 157/83 94 L 11/27/24 20:07 61 16 175/96 94 L 11/27/24 19:59 98.1 F Intake and Output 11/27/24 11/28/24 11/28/24 22:59 06:59 14:59 Other: Weight 63.503 kg GENERAL: The patient is lying in bed and is not in acute distress. NEUROLOGICAL: Higher mental function: The patient is awake, alert, oriented to self, place and time. Patient is following commands. No aphasia and no neglect. Cranial nerves: The pupils are round, equal and reactive to light and accommodation. Visual nolen are full to confrontation throughout. Extraocular movement is intact no nystagmus is noted. Facial sensation is normal to touch throughout. The facial strength is right lower facial weakness. Hearing is mi ldly decreased bilaterally to hand rub. Tongue is midline and moved [id number] without any difficulty. Mild dysarthria is noted. Shoulder shrug is normal bilaterally. Motor: The strength is 5 over 5 throughout. Normal tone and bulk. Cerebellum: Normal finger to nose bilaterally. Sensation: Sensation is normal to touch throughout. Reflexes (right/left): 2+ in uppers and was resistant on lowers because of concern of pain. Plantars are mute bilaterally. Results - Laboratory Findings CBC and BMP: 11/28/24 09:37 11/28/24 09:37 Abnormal Lab Findings: Abnormal Labs 11/28/24 11/28/24 09:37 09:37 RBC 3.70 L MCV 101.5 H BUN 18 H Glucose 123 H Assessment and Plan Assessment: This is an 84-year-old woman who was transferred from outside hospital with further evaluation of her stroke symptoms. She was transferred because of right facial weakness and the daughter noticed that yesterday around 1:15 PM and unknown last normal state. She has history of atrial fibrillation and she is on Eliquis and compliant taking medication. Right facial weakness and mild dysarthria on examination seems more likely acute ischemic stroke Transient episode of right lower extremity jerking per the daughter but was respond during the episode: Rule out focal seizure. Clinically patient does not have any further jerking of her extremities 60% right ICA stenosis, 70% distal left middle cerebral artery stenosis and small basilar artery at the outside hospital on the CT angiography Atrial fibrillation on Eliquis Hypercholesteremia Plan: Prior to this the patient was only on Eliquis 5 mg twice daily. The primary team has started her on aspirin 81 mg and Plavix 75 mg daily. I would recommend holding off on dual antiplatelet and consider only on aspirin or Plavix since an increased risk for a bleed. I consulted vascular surgery team for the carotid stenosis. I ordered a repeat CT angiography of the head and neck ordered a repeat CT of the head I ordered MRI of the brain Patient is on Lipitor 80 mg nightly started by the ED team 2D echo was ordered and is pending Pending lipid panel I ordered a routine EEG since the patient had episode of right lower extremity jerking that the daughter noticed to rule out any seizure or discharges. The EEG will be completed tomorrow. Continue neurochecks Cardiac monitoring PT OT and STOCKLAYER are consulted Will defer the rest of the medical management to primary and other specialist Plan is discussed with the patient, her daughter is at bedside and primary team nurse practitioner Thank you for the consultation Dr. Martell will resume neurology service tomorrow A.M. Time with Patient: Greater than 30
--- NOTE | 2024-11-28 14:01 | CT ---
EXAMINATION TYPE: CT brain wo con DATE OF EXAM: 11/28/2024 1:46 PM COMPARISON: Previous CT study dated 04/13/2002. CLINICAL INDICATION: Female, 84 years old with history of stroke. right facial droop, RIGHT FACIAL D CHRISSY TECHNIQUE: Brain: Axial CT images of the brain were obtained with coronal and sagittal reformats created and rev iewed. Contrast used: None. Oral contrast used: None. CT DLP: 1095.9 mGycm, Automated exposure control for dose reduction was used. FINDINGS: Brain: No acute intracranial hemorrhage, midline shift or significant mass effect. Ventricles and sulci are prominent compatible generalized cerebral volume loss. Patchy periventricular and subcortical white m atter hypoattenuation likely reflecting chronic microvascular ischemic disease. Old age indeterminate left basal ganglia small infarction (series 55 image 32), new from prior study 04/13/2022. No sizable extra-axial fluid collection. Basal cisterns appear patent. Previous bilateral cataract lens extract ion noted. Paranasal sinuses and mastoid air cells appear patent. IMPRESSION: 1. No acute intracranial hemorrhage, midline shift or significant mass effect. 2. Age indeterminant small left basal ganglia infarct, new from prior study 04/13/2022. Consider MRI for further evaluation as clinically indicated. [facility], , 11/28/2024 1:59 PM
--- NOTE | 2024-11-28 16:30 | US ---
EXAMINATION TYPE: US carotid duplex BILAT DATE OF EXAM: 11/28/2024 COMPARISON: NONE CLINICAL INDICATION: Female, 84 years old with history of cva; possible stroke with syncope TECHNIQUE: Grayscale, color Doppler and spectral Doppler evaluation of the bilateral carotid systems and vertebral arteries. Indirect Doppler criteria was utilized. FINDINGS: EXAM MEASUREMENTS: RIGHT: Peak Systolic Velocity (PSV) cm/sec ----- Right CCA: 54.2 ----- Right ICA: 82.2 ----- Right ECA: 146.0 ICA/CCA ratio: 1.5 RIGHT: End Diastole cm/sec ----- Right CCA: 0.0 ----- Right ICA: 22.0 ----- Right ECA: 0.0 LEFT: Peak Systolic Velocity (PSV) cm/sec ----- Left CCA: 58.2 ----- Left ICA: 203.0 ----- Left ECA: 49.8 ICA/CCA ratio: 3.3 LEFT: End Diastole cm/sec ----- Left CCA: 10.7 ----- Left ICA: 26.3 ----- Left ECA: 0.0 VERTEBRALS (direction of flow): Right Vertebral: Antegrade Left Vertebral: Antegrade Rhythm: Normal METEOROLOGY INSTRUCTOR NOTES: Heterogeneous plaque on the left with stenosis noted distal ICA Color Doppler imaging shows patency with blood flow throughout the carotid artery. Spectral waveforms are within normal limits. IMPRESSION: Right: Less than 50% stenosis of the carotid bifurcation. Left: 50-69% stenosis of the distal left ICA. Criteria for Assigning % of Stenosis / Diameter reduction (Estimation based on the indirect measurements of the internal carotid artery velocities (ICA PSV). 1. Normal (no stenosis)=ICA PSV < 125 cm/s: ratio < 2.0: ICA EDV<40 cm/s. 2. Less than 50% stenosis=ICA PSV < 125 cm/s: ratio < 2.0: ICA EDV<40 cm/s. 3. 50 to 69% stenosis=ICA PSV of 125 to 230 cm/s: ration 2.0 ? 4.0: ICA EDV 40-100 cm/s. 4. Greater than 70% stenosis to near occlusion= ICA PSV > 230 cm/s: ratio > 4.0: ICA EDV > 100 cm/s. 5. Near occlusion= ICA PSV velocities may be low or undetectable: variable ratio and ICA EDV. 6. Total occlusion=unable to detect flow. [facility], , 11/28/2024 4:28 PM
--- NOTE | 2024-11-28 16:33 | P.PN ---
Subjective Progress Note Date: 11/28/24 Hospital course: Patient is a very pleasant 84-year-old female with a past medical history of paroxysmal atrial fibrillation, hypertension, hyperlipidemia, hypothyroidism, GERD, previous partial bowel resection, and anxiety with depression. She presented to the emergency department as a transfer from [facility] on 12/18 with a chief complaint of right-sided facial droop with a reported CT brain and CTA head and neck negative for acute process. Upon arrival to our facility, patient underwent evaluation in the emergency department. Vital signs upon arrival show blood pressure 175/96, heart rate 61, respiratory rate 16, temp 98.1 F, and SpO2 of 94% on room air. EKG showing sinus bradycardia at 58 bpm. Glucose was 93. Patient was admitted under services with consultation to neurology. Physical exam: Patient seen and fully evaluated at bedside this morning. She continues to have mild right-sided facial droop but currently denies any other complaints. Patient reports otherwise feeling at baseline and denies having dysphagia, headache, lightheadedness, dizziness, chest pain, palpitations, shortness of breath, or experiencing any numbness/tingling/weakness/swelling in her extremit ies. Vital signs reviewed and stable. General: Nontoxic, no distress and appears stated age. Derm: Skin warm and dry, normal coloration for ethnicity. Head: Atraumatic, normocephalic and symmetric. Eyes: EOM's intact, no lid lag, and anicteric sclera Mouth: no lip lesions, mucus membranes moist Cardiovascular: regular rate and rhythm with normal S1S2, no obvious murmur, positive posterior tibial pulses bilaterally, and cap refill < 2 seconds. Lungs: Respirations even, regular, and unlabored on room air. Lungs CTA bilaterally, no rhonchi, no rales, no wheezing, and no accessory muscle usage. Abdominal: soft, nontender to palpation, no guarding, no appreciable organomegaly Ext: ROM intact. No gross muscle atrophy, no edema, no contractures Neuro: Speech clear, right-sided facial droop noted. GCS 15. Psych: Alert and oriented to person, place, time, and situation. Appropriate and pleasant affect. Assessment and Plan of Care: Right-sided facial droop with transient mild dysarthria, rule out acute ischemic CVA -Neurology following, discussed plan of care with Dr. Salazar. Recommending patient undergo MRI and EEG -MRI brain without contrast -Echocardiogram with bubble study -TSH, Lipid profile, and Hgb A1c -NIH stroke scale with neuro checks every 4 hours and as needed -Continue Atorvastatin 80 mg nightly, Plavix 75 mg daily and Eliquis 5 mg twice daily. -PT/OT consult -Consult to speech and language pathologist -Fall precautions and provide pt with assistance as needed. Paroxysmal atrial fibrillation Currently maintaining sinus mechanism. Continue Eliquis 5 mg twice daily. Hypertension Continue Imdur 30 mg daily. Hypothyroidism Continue levothyroxine 75 mcg daily and follow-up on TSH with reflex free T4. Hyperlipidemia Continue atorvastatin 80 mg nightly. Data and imaging reviewed: Morning labs reviewed. CBC showing mild macrocytosis with MCV of 101.5 otherwise normal findings. BMP showing mild prerenal azotemia with BUN of 18 otherwise normal findings. Blood glucose 123. Magnesium 2.0. Liver profile unremarkable. TSH 2.930. Vital signs reviewed. Blood pressure 156/78, heart rate 54, respiratory rate 16, temp 98.5 F, and SpO2 of 95% on room air. CODE STATUS: Full code DVT prophylaxis: Eliquis Anticipated discharge date: Pending clinical course Anticipated discharge place: Pending clinical course, likely discharge home Patient was seen independently by Nurse Pracitioner. This document was prepared using [employer] dictation software. Please allow for errors in scientific software developer, while rare they do occur. Dago Donahue NP rendered care for this patient independently, reviewed the findings and plan as documented in the note above and agree with plan. I did not physically speak with or examine the patient on this date. Objective - Vital Signs Vital signs: Vital Signs Temp 97.6 F 11/28/24 07:30 Pulse 56 L 11/28/24 08:23 Resp 18 11/28/24 08:23 BP 177/81 11/28/24 08:23 Pulse Ox 93 L 11/28/24 08:23 FiO2 Intake & Output 11/27/24 11/28/24 11/28/24 18:59 06:59 18:59 Weight 63.503 kg - Labs CBC & Chem 7: 11/28/24 09:37 11/28/24 09:37
--- NOTE | 2024-11-28 16:51 | CT ---
EXAMINATION TYPE: CT angio head neck DATE OF EXAM: 11/28/2024 4:16 PM COMPARISON: None. CLINICAL INDICATION: Female, 84 years old with history of stroke; [facility], pt transferred from [facility] for right side facial droop. TECHNIQUE: Axially acquired helical CT angiogram of the head and neck was obtained with contrast. Axi al images are supplemented with 3D reconstructions and MIP images which were post-processed at an in dependent workstation. NASCET criteria used. Contrast used:65cc mL of Isovue 370 with IV Contrast, Oral contrast used: None. CT DLP: 400.5 mGycm, Automated exposure control for dose reduction was used. FINDINGS: CTA HEAD: No evidence of acute intracranial hemorrhage, mass effect, or midline shift. The ventricles, sulci, a nd cisterns are unremarkable. Vertebral arteries: The vertebral arteries are patent. Vertebral artery dominance: Left Basilar artery: The basilar artery is intact. The basilar artery bifurcation is normal. Internal Carotid arteries: The cervical, petrous, cavernous and supraclinoid segments demonstrate andres cified atheromatous disease without are without definite evidence of flow-limiting stenosis LILY: Patent with no evidence of aneurysm. ACOM: Present without evidence of aneurysm. MCA: Patent with no evidence of aneurysm. CHERRY CUTTER: Patent with no evidence of aneurysm. PCOM: Hypoplastic bilaterally. Dural sinuses: Patent. CTA NECK: Right Carotid System: The common carotid artery and external carotid artery are patent. The carotid bifurcation demonstrate s mixed calcified plaque causing approximately 60-70% stenosis of the proximal right ICA. The remaini ng portions of the internal carotid artery demonstrate normal size without significant narrowing. Left Carotid System: The common carotid artery and external carotid artery are patent. The carotid bifurcation demonstrate s mixed calcified plaque causing approximately 50-60% stenosis of the proximal left ICA. The remainin g portions of the internal carotid artery demonstrate normal size without significant narrowing. Vertebral arteries are patent without evidence hemodynamically significant stenosis. There is a three-vessel aortic arch. The origins of the great vessels are patent. No evidence of hemo dynamically significant stenosis. Upper thorax: IMPRESSION: 1. No evidence of dissection of the cervical internal carotid arteries or vertebral arteries. 2. Approximately 60-70% stenosis of the proximal right ICA due to mixed calcified plaque. 3. Approximately 50-60% stenosis of the proximal left ICA due to mixed calcified plaque 4. No evidence of intracranial high-grade stenosis or intracranial aneurysm. [facility], , 11/28/2024 4:49 PM
[2024-11-28] MEDS: MELATONIN 3 MG TABLET PO SCH (21:51)
[2024-11-28 23:26] LABS: Chol/HDL Ratio 4.56 Ratio; LDL Cholesterol,Calculated 195.8 mg/dL (0.0-131.0)
[2024-11-29] MEDS: hydrOXYzine HCL 25 MG TAB PO PRN (04:13)
[2024-11-29 07:42] LABS: HGB 12.2 gm/dL (11.4-16.0); MCH 32.8 pg (25.0-35.0); MCV 99.3 fL (80.0-100.0); Mean Platelet Volume 7.3; Platelet Count 260 k/uL (150-450); RBC 3.72 m/uL (3.80-5.40); RDW 13.3 % (11.5-15.5); WBC 11.6 k/uL (3.8-10.6)
[2024-11-29 08:05] LABS: ALT 21 U/L (4-34); AST 28 U/L (14-36); African American GFR (CKD) 56 (>60 ml/min/1.73 sqM); Alkaline Phosphatase 103 U/L (38-126); Anion Gap 9 mmol/L; Blood Urea Nitrogen 20 mg/dL (7-17); Calcium 9.6 mg/dL (8.4-10.2); Carbon Dioxide 29 mmol/L (22-30); Chloride 98 mmol/L (98-107); Glucose 112 mg/dL (74-99); Magnesium 1.9 mg/dL (1.6-2.3); Non-African American GFR(CKD) 48 (>60 ml/min/1.73 sqM); Potassium 3.9 mmol/L (3.5-5.1); Sodium 136 mmol/L (137-145); Total Bilirubin 0.6 mg/dL (0.2-1.3); Total Protein 7.1 g/dL (6.3-8.2)
[2024-11-29] MEDS: ISOSORBIDE MONONITRATE ER 30 MG TAB.ER.24H PO SCH (09:14)
--- NOTE | 2024-11-29 14:10 | P.GSCN ---
History of Present Illness Consult date: 11/29/24 Reason for Consult: Carotid stenosis Requesting physician: Anoop Salazar History of present illness: This is a pleasant 84-year-old female who was brought in from an outside hospital for concerns of a stroke on 11/27/2023. Patient is not much of a historian. She states she does not believe that she had a stroke. HPI obtained from chart and according to neurology's note daughter states that she saw her mother in the [facility] and she appeared to have a right facial droop. Patient has a past medical history including atrial fibrillation on Eliquis, hypertension and hyperlipidemia. Patient denies any visual changes, no extremity weakness, no chest pain, shortness of breath, abdominal pain nausea or vomiting. She had a CT of the brain that shows age-indeterminate left basal ganglia infarct. CTA head and neck with findings of 60 to 70% right ICA stenosis and 50 to 60% left ICA stenosis. Carotid duplex reports less than 50% stenosis of the right ICA and left at 50 to 69%. MRI currently ordered. Review of Systems A 14 point review systems was completed all pertinent positives and negatives as stated in the HPI. Past Medical History Past Medical History: GERD/Reflux, Hyperlipidemia, Hypertension, Thyroid Disorder Additional Past Medical History / Comment(s): anemia History of Any Multi-Drug Resistant Organisms: None Reported Past Surgical History: Appendectomy, Bowel Resection, Cholecystectomy, Hysterectomy Additional Past Surgical History / Comment(s): partial bowel resection with the hysterectomy Past Psychological History: Anxiety, Depression Smoking Status: Never smoker Past Alcohol Use History: None Reported Past Drug Use History: None Reported Medications and Allergies Home Medications Medication Instructions Recorded Confirmed Type Levothyroxine Sodium [Synthroid] 75 mcg PO DAILY@0700 09/06/20 11/27/24 History Isosorbide Mononitrate ER [Imdur] 30 mg PO DAILY@0700 04/12/22 11/27/24 History ARIPiprazole [Abilify] 2 mg PO DAILY@0700 11/27/24 11/27/24 History Acetaminophen Tab [Tylenol] 650 mg PO Q4H PRN 11/27/24 11/27/24 History Acetaminophen Tab [Tylenol] 650 mg PO TID@0700,1299,199911/27/24 11/27/24 History Apixaban [Eliquis] 5 mg PO BID@0700,199911/27/24 11/27/24 History Calcium Carbonate [Tums] 1,000 mg PO Q2H PRN 11/27/24 11/27/24 History Esomeprazole Magnesium [NexIUM] 20 mg PO DAILY@69911/27/24 11/27/24 History FLUoxetine HCL [PROzac] 40 mg PO DAILY@69911/27/24 11/27/24 History Magnesium Hydroxide [Milk of 2,400 mg PO DAILY PRN 11/27/24 11/27/24 History Magnesia] Melatonin 3 mg PO HS@199911/27/24 11/27/24 History buPROPion XL [Wellbutrin XL] 150 mg PO DAILY@69911/27/24 11/27/24 History guaiFENesin [guaiFENesin Oral 100 mg PO Q4H PRN 11/27/24 11/27/24 History Solution] hydrOXYzine HCL [Atarax] 25 mg PO Q8H PRN 11/27/24 11/27/24 History Allergies Allergy/AdvReac Type Severity Reaction Status Date / Time ranolazine Allergy Rash/Hives Verified 11/27/24 20:08 Surgical - Exam Vital Signs Temp 98.1 F 11/27/24 19:59 General appearance: The patient is alert, oriented, appears in no acute distress. HET: Head is normocephalic and atraumatic. Pupils are equal and reactive. Right facial droop. Neck: Supple. Heart: Regular. Lungs: Equal expansion, normal respiratory effort. Abdomen: Soft, nontender, nondistended. Extremities: Normal skin color and turgor. Neurological: Alert, oriented to self. Upper and lower extremity strength equal. Speech appears fluent. Results - Labs 11/29/24 06:57 11/29/24 06:57 Abnormal Lab Results - Last 24 Hours (Table) 11/28/24 11/28/24 11/29/24 Range/Units 09:37 09:37 06:57 WBC 11.6 H (3.8-10.6) k/uL RBC 3.70 L 3.72 L (3.80-5.40) m/uL MCV 101.5 H (80.0-100.0) fL Sodium (137-145) mmol/L BUN 18 H (7-17) mg/dL Creatinine (0.52-1.04) mg/dL Glucose 123 H (74-99) mg/dL Cholesterol 282.00 H (0.00-200.00) mg/dL LDL Cholesterol, Calc 195.8 H (0.0-131.0) mg/dL HDL Cholesterol 61.80 H (40.00-60.00) mg/dL 11/29/24 Range/Units 06:57 WBC (3.8-10.6) k/uL RBC (3.80-5.40) m/uL MCV (80.0-100.0) fL Sodium 136 L (137-145) mmol/L BUN 20 H (7-17) mg/dL Creatinine 1.07 H (0.52-1.04) mg/dL Glucose 112 H (74-99) mg/dL Cholesterol (0.00-200.00) mg/dL LDL Cholesterol, Calc (0.0-131.0) mg/dL HDL Cholesterol (40.00-60.00) mg/dL Diabetes panel 11/28/24 11/29/24 Range/Units 09:37 06:57 Sodium 137 136 L (137-145) mmol/L Potassium 3.8 3.9 (3.5-5.1) mmol/L Chloride 103 98 (98-107) mmol/L Carbon Dioxide 26 29 (22-30) mmol/L BUN 18 H 20 H (7-17) mg/dL Creatinine 0.96 1.07 H (0.52-1.04) mg/dL Glucose 123 H 112 H (74-99) mg/dL Calcium 9.4 9.6 (8.4-10.2) mg/dL AST 24 28 (14-36) U/L ALT 20 21 (4-34) U/L Alkaline Phosphatase 108 103 (38-126) U/L Total Protein 7.2 7.1 (6.3-8.2) g/dL Albumin 4.0 4.0 (3.5-5.0) g/dL Triglycerides 122.00 (0.00-149.00) mg/dL HDL Cholesterol 61.80 H (40.00-60.00) mg/dL Thyroid panel 11/28/24 Range/Units 09:37 TSH 2.930 (0.465-4.680) mIU/L Calcium panel 11/28/24 11/29/24 Range/Units 09:37 06:57 Calcium 9.4 9.6 (8.4-10.2) mg/dL Albumin 4.0 4.0 (3.5-5.0) g/dL Pituitary panel 11/28/24 11/29/24 Range/Units 09:37 06:57 Sodium 137 136 L (137-145) mmol/L Potassium 3.8 3.9 (3.5-5.1) mmol/L Chloride 103 98 (98-107) mmol/L Carbon Dioxide 26 29 (22-30) mmol/L BUN 18 H 20 H (7-17) mg/dL Creatinine 0.96 1.07 H (0.52-1.04) mg/dL Glucose 123 H 112 H (74-99) mg/dL Calcium 9.4 9.6 (8.4-10.2) mg/dL TSH 2.930 (0.465-4.680) mIU/L Adrenal panel 11/28/24 11/29/24 Range/Units 09:37 06:57 Sodium 137 136 L (137-145) mmol/L Potassium 3.8 3.9 (3.5-5.1) mmol/L Chloride 103 98 (98-107) mmol/L Carbon Dioxide 26 29 (22-30) mmol/L BUN 18 H 20 H (7-17) mg/dL Creatinine 0.96 1.07 H (0.52-1.04) mg/dL Glucose 123 H 112 H (74-99) mg/dL Calcium 9.4 9.6 (8.4-10.2) mg/dL Total Bilirubin 0.5 0.6 (0.2-1.3) mg/dL AST 24 28 (14-36) U/L ALT 20 21 (4-34) U/L Alkaline Phosphatase 108 103 (38-126) U/L Total Protein 7.2 7.1 (6.3-8.2) g/dL Albumin 4.0 4.0 (3.5-5.0) g/dL - Imaging Comments: Brain CT reports no acute intracranial hemorrhage, midline shift or significant mass effect. Age-indeterminate small left basal ganglia infarct, new from prior study 04/13/2022. CTA head and neck reports no evidence of dissection of the cervical internal carotid arteries or vertebral arteries. Approximately 60 to 70% stenosis of the proximal right ICA due to mixed calcified plaque. Approximately 50 to 60% stenosis of the proximal left ICA due to mixed calcified plaque. No evidence of intracranial high-grade stenosis or intracranial aneurysm. Carotid duplex reports less than 50% stenosis of right carotid bifurcation. Left 50 to 69% stenosis of the distal left ICA. Assessment and Plan Assessment: 1. Right facial droop 2. Age-indeterminate left basal ganglia infarct 3. 60 to 70% right ICA stenosis and 50 to 60% left ICA stenosis per CTA Plan: 1. Await MRI results 2. Await further recommendations from neurology 3. Will get disc made of CTA 4. Agree with Plavix 75 mg daily, Lipitor 80 mg daily and continue Eliquis as ordered 4. Further recommendations forthcoming based on clinical course Thank you for this consultation, we will continue to follow. The impression and plan of care has been dictated as directed. Dr. Umana I performed a history and examination of this patient, discussed the same with the dictator. I agree with the dictator's note ,documented as a scribe. Any additional findings or plans will be noted.
--- NOTE | 2024-11-29 15:21 | P.PN ---
Subjective Progress Note Date: 11/29/24 Hospital course: Patient is a very pleasant 84-year-old female with a past medical history of paroxysmal atrial fibrillation, hypertension, hyperlipidemia, hypothyroidism, GERD, previous partial bowel resection, and anxiety with depression. She presented to the emergency department as a transfer from [facility] on 12/18 with a chief complaint of right-sided facial droop with a reported CT brain and CTA head and neck negative for acute process. Upon arrival to our facility, patient underwent evaluation in the emergency department. Vital signs upon arrival show blood pressure 175/96, heart rate 61, respiratory rate 16, temp 98.1 F, and SpO2 of 94% on room air. EKG showing sinus bradycardia at 58 bpm. Glucose was 93. Patient was admitted under services with consultation to neurology. Physical exam: Patient seen and fully evaluated at bedside this morning. She continues to have mild right-sided facial droop but currently denies any other complaints other than feeling very tired. Patient's daughter visiting at bedside. Patient and daughter updated on plan and pending tests that are ordered for completion. All questions answered at this time. Vital signs reviewed and stable. General: Nontoxic, no distress and appears stated age. Derm: Skin warm and dry, normal coloration for ethnicity. Head: Atraumatic, normocephalic and symmetric. Eyes: EOM's intact, no lid lag, and anicteric sclera Mouth: no lip lesions, mucus membranes moist Cardiovascular: regular rate and rhythm with normal S1S2, no obvious murmur, positive posterior tibial pulses bilaterally, and cap refill < 2 seconds. Lungs: Respirations even, regular, and unlabored on room air. Lungs CTA bilaterally, no rhonchi, no rales, no wheezing, and no accessory muscle usage. Abdominal: soft, nontender to palpation, no guarding, no appreciable organomegaly Ext: ROM intact. No gross muscle atrophy, no edema, no contractures Neuro: Speech clear, right-sided facial droop noted. GCS 15. Psych: Alert and oriented to person, place, time, and situation. Appropriate and pleasant affect. Assessment and Plan of Care: Right-sided facial droop with transient mild dysarthria, rule out acute ischemic CVA -Neurology following,. Recommending patient undergo MRI and EEG -MRI brain without contrast -Echocardiogram with bubble study -Lipid profile showing elevated total cholesterol of 282, LDL of 195.8, and VLDL of 24.40. TSH normal findings at 2.930. Hemoglobin A1c pending. -NIH stroke scale with neuro checks every 4 hours and as needed -Continue Atorvastatin 80 mg nightly, Plavix 75 mg daily and Eliquis 5 mg twice daily. -PT/OT consult -Consult to speech and language pathologist -Fall precautions and provide pt with assistance as needed. Carotid stenosis -Vascular surgery evaluated, discussed with vascular surgery COOK ROOM SUPERVISOR stating they are awaiting MRI results and will give further recommendations based upon findings. -Continue Plavix 75 mg daily, atorvastatin 80 mg nightly, and Eliquis 5 mg twice daily. Paroxysmal atrial fibrillation Currently maintaining sinus mechanism. Continue Eliquis 5 mg twice daily. Hypertension Continue Imdur 30 mg daily. Hypothyroidism Continue levothyroxine 75 mcg daily and follow-up on TSH with reflex free T4. Hyperlipidemia Continue atorvastatin 80 mg nightly. Data and imaging reviewed: Morning labs reviewed. CBC showing mild leukocytosis with WBC count of 11.6 otherwise normal findings. BMP showing slightly elevated renal function with BUN of 20, creatinine 1.07, GFR 48. Blood glucose 112. Magnesium 1.9. Liver profile unremarkable. Lipid profile showing elevated total cholesterol of 282, LDL of 195.8, and VLDL of 24.40. Vital signs reviewed. Blood pressure 161/81, heart rate 68, respiratory rate 17, temp 97.7 F, and SpO2 of 94% on room air. CODE STATUS: Full code DVT prophylaxis: Eliquis Anticipated discharge date: Pending clinical course Anticipated discharge place: Pending clinical course, likely discharge home Patient was seen independently by Nurse Pracitioner. This document was prepared using [employer] dictation software. Please allow for errors in over the road driver, while rare they do occur. Dago Donahue NP rendered care for this patient independently, reviewed the findings and plan as documented in the note above and agree with plan. I did not physically speak with or examine the patient on this date. Objective - Vital Signs Vital signs: Vital Signs Temp 97.7 F 11/29/24 06:28 Pulse 80 11/29/24 09:00 Resp 20 11/29/24 09:00 BP 167/74 11/29/24 09:00 Pulse Ox 96 11/29/24 09:00 FiO2 - Labs CBC & Chem 7: 11/29/24 06:57 11/29/24 06:57 Labs: Abnormal Lab Results - Last 24 Hours (Table) 11/28/24 11/28/24 11/29/24 Range/Units 09:37 09:37 06:57 WBC 11.6 H (3.8-10.6) k/uL RBC 3.70 L 3.72 L (3.80-5.40) m/uL MCV 101.5 H (80.0-100.0) fL Sodium (137-145) mmol/L BUN 18 H (7-17) mg/dL Creatinine (0.52-1.04) mg/dL Glucose 123 H (74-99) mg/dL Cholesterol 282.00 H (0.00-200.00) mg/dL LDL Cholesterol, Calc 195.8 H (0.0-131.0) mg/dL HDL Cholesterol 61.80 H (40.00-60.00) mg/dL 11/29/24 Range/Units 06:57 WBC (3.8-10.6) k/uL RBC (3.80-5.40) m/uL MCV (80.0-100.0) fL Sodium 136 L (137-145) mmol/L BUN 20 H (7-17) mg/dL Creatinine 1.07 H (0.52-1.04) mg/dL Glucose 112 H (74-99) mg/dL Cholesterol (0.00-200.00) mg/dL LDL Cholesterol, Calc (0.0-131.0) mg/dL HDL Cholesterol (40.00-60.00) mg/dL
[2024-11-30 08:59] LABS: HCT 34.5 % (34.0-46.0); HGB 11.3 gm/dL (11.4-16.0); MCH 32.8 pg (25.0-35.0); MCHC 32.7 g/dL (31.0-37.0); MCV 100.4 fL (80.0-100.0); Mean Platelet Volume 7.2; Platelet Count 256 k/uL (150-450); RBC 3.43 m/uL (3.80-5.40); WBC 7.6 k/uL (3.8-10.6)
[2024-11-30 09:13] LABS: ALT 22 U/L (4-34); AST 30 U/L (14-36); African American GFR (CKD) 44 (>60 ml/min/1.73 sqM); Albumin 3.6 g/dL (3.5-5.0); Alkaline Phosphatase 94 U/L (38-126); Anion Gap 9 mmol/L; Blood Urea Nitrogen 26 mg/dL (7-17); Calcium 9.2 mg/dL (8.4-10.2); Carbon Dioxide 26 mmol/L (22-30); Chloride 102 mmol/L (98-107); Glucose 100 mg/dL (74-99); Magnesium 1.9 mg/dL (1.6-2.3); Non-African American GFR(CKD) 38 (>60 ml/min/1.73 sqM); Potassium 3.7 mmol/L (3.5-5.1); Sodium 137 mmol/L (137-145); Total Bilirubin 0.5 mg/dL (0.2-1.3); Total Protein 6.5 g/dL (6.3-8.2)
--- NOTE | 2024-11-30 10:19 | MR ---
EXAMINATION TYPE: MR brain wo con DATE OF EXAM: 11/30/2024 10:07 AM COMPARISON: 11/28/2024. CLINICAL INDICATION: Female, 84 years old with history of cva. rt facial droop, Right facial droop, CVA. TECHNIQUE: Multi planar, multi sequence imaging was performed through the brain including: T1, T2, In version recovery, Diffusion weighted imaging, and gradient echo imaging. No gadolinium was given. FINDINGS: Restricted diffusion in the left posterior frontal lobe. Right occipital lobe encephalomala vilma from prior injury. Mild cerebral atrophy with proportional dilation of ventricular system. Scattered foci of high T2 sig nal intensity are seen within the periventricular white matter. Midline structures show no abnormalit y. The susceptibility weighted images do not reveal any evidence for micro-hemorrhage. The bone marrow signal is within normal limits. Paranasal sinuses and mastoid air cells: No significant paranasal sinus disease. Visualized orbits: Orbital contents are intact. IMPRESSION: 1. 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 2. Nonspecific white matter changes, likely secondary to small vessel ischemic disease. 3. Remote injury to the right occipital lobe from prior injury. [facility], , 11/30/2024 10:17 AM
--- NOTE | 2024-11-30 10:56 | P.PN ---
Subjective Progress Note Date: 11/29/24 Patient initially seen by Dr. Anoop Salazar. Please refer to his note for details. Patient is a 84-year-old female with right facial droop and dysarthria. Pending stroke workup. Patient is also having jerking of extremity. Patient is awaiting MRI of the brain. Patient offers no new complaints. Some of the workup during this hospital visit consisted of: TSH is 2.930. I reviewed the rest of the lab workup. At the outside facility patient had CT of the head which was unremarkable for any acute stroke. CT angiography of the head and neck at the outside hospital is reported as right ICA stenosis of 60%. 70% distal left segment . Small basilar artery. I assume no IV thrombolytic since patient is on anticoagulation risk outweigh the benefit. Objective - Vital Signs Vital signs: Vital Signs Temp 97.7 F 11/29/24 06:28 Pulse 70 11/29/24 19:00 Resp 12 11/29/24 19:00 BP 123/66 11/29/24 19:00 Pulse Ox 95 11/29/24 19:00 FiO2 - Exam On examination patient's mental status and speech and language functions normal. Cranial nerves significant for right facial weakness, central type. Her tongue protrudes to midline. Visual nolen are full. On muscle strength testing, there is no pronator drift. Patient is tremulous in bilateral upper extremities, right slightly more than left. Patient states that this tremulousness is going for only days to months. Her mud mill tender is normal bilaterally. Ankle dorsiflexion normal, hip flexion looks okay. Sensory to touch is equal. - Labs CBC & Chem 7: 11/30/24 08:10 11/30/24 08:10 Labs: Abnormal Lab Results - Last 24 Hours (Table) 11/28/24 11/29/24 11/29/24 Range/Units 09:37 06:57 06:57 WBC 11.6 H (3.8-10.6) k/uL RBC 3.72 L (3.80-5.40) m/uL Sodium 136 L (137-145) mmol/L BUN 20 H (7-17) mg/dL Creatinine 1.07 H (0.52-1.04) mg/dL Glucose 112 H (74-99) mg/dL Cholesterol 282.00 H (0.00-200.00) mg/dL LDL Cholesterol, Calc 195.8 H (0.0-131.0) mg/dL HDL Cholesterol 61.80 H (40.00-60.00) mg/dL Assessment and Plan Assessment: This is an 84-year-old woman who was transferred from outside hospital with further evaluation of her stroke symptoms. She was transferred because of right facial weakness and the daughter noticed that yesterday around 1:15 PM and unknown last normal state. She has history of atrial fibrillation and she is on Eliquis and compliant taking medication. Right facial weakness and mild dysarthria on examination seems more likely acute ischemic stroke Transient episode of right lower extremity jerking per the daughter but would respond during the episode: Rule out focal seizure. Clinically patient does not have any further jerking of her extremities 60% right ICA stenosis, 70% distal left middle cerebral artery stenosis and small basilar artery at the outside hospital on the CT angiography Atrial fibrillation on Eliquis Hypercholesteremia Plan: Prior to this the patient was only on Eliquis 5 mg twice daily. The primary team has started her on Plavix 75 mg daily as well due to atherosclerotic cerebrovascular disease noted on CTA. Vascular surgery team on board for the carotid stenosis. CTA of head and neck revealed no evidence of dissection of the cervical internal carotid arteries or vertebral arteries. Approximately 60 to 70% stenosis of the proximal right ICA due to mixed calcified plaque. Approximately 50 to 60% stenosis of the proximal left ICA due to mixed calcified plaque. No evidence of intracranial high-grade stenosis or intracranial aneurysm. Await MRI of the brain 2D echo pending Lipid panel with cholesterol 282, LDL 195, HDL 61, triglycerides 122. Patient started on high intensity statins with Lipitor 80 mg. Patient was not taking any statins prior to arrival. Check hemoglobin A1c Await EEG since the patient had episode of right lower extremity jerking that the daughter noticed to rule out any seizure or discharges. The EEG will be completed tomorrow. Continue neurochecks Cardiac monitoring PT OT and CARDIOPULMONARY TECHNOLOGIST are consulted Will defer the rest of the medical management to primary and other specialist
--- NOTE | 2024-11-30 12:53 | P.PN ---
Progress Note - Text Progress Note Date: 11/30/24 Attempted to see patient a couple different times and she was out of the room for testing. MRI result is back reporting acute/subacute CVA involving the left posterior frontal lobe. Nonspecific white matter changes likely secondary to small vessel ischemic disease. Remote injury to the right occipital lobe from prior injury. Will reevaluate patient tomorrow and discuss further with neurology. The impression and plan of care has been dictated as directed. I performed a history and examination of this patient, discussed the same with the dictator. I agree with the dictator's note ,documented as a scribe. Any additional findings or plans will be noted.
--- NOTE | 2024-11-30 15:51 | P.PN ---
Subjective Progress Note Date: 11/30/24 Hospital course: Patient is a very pleasant 84-year-old female with a past medical history of paroxysmal atrial fibrillation, hypertension, hyperlipidemia, hypothyroidism, GERD, previous partial bowel resection, and anxiety with depression. She presented to the emergency department as a transfer from [facility] on 12/18 with a chief complaint of right-sided facial droop with a reported CT brain and CTA head and neck negative for acute process. Upon arrival to our facility, patient underwent evaluation in the emergency department. Vital signs upon arrival show blood pressure 175/96, heart rate 61, respiratory rate 16, temp 98.1 F, and SpO2 of 94% on room air. EKG showing sinus bradycardia at 58 bpm. Glucose was 93. Patient was admitted under our services with consultation to neurology.MRI completed showing acute/subacute CVA involving the left posterior frontal lobe along with nonspecific white matter changes likely secondary to small vessel ischemic disease and a remote injury to the right occipital lobe from prior injury. Physical exam: Patient seen and fully evaluated at bedside this morning. She continues to have mild right-sided facial droop at the bedside reporting new onset right upper and lower extremity tremors starting yesterday seems to be occurring more frequen tly. Vital signs reviewed and stable. General: Nontoxic, no distress and appears stated age. Derm: Skin warm and dry, normal coloration for ethnicity. Head: Atraumatic, normocephalic and symmetric. Eyes: EOM's intact, no lid lag, and anicteric sclera Mouth: no lip lesions, mucus membranes moist Cardiovascular: regular rate and rhythm with normal S1S2, no obvious murmur, positive posterior tibial pulses bilaterally, and cap refill < 2 seconds. Lungs: Respirations even, regular, and unlabored on room air. Lungs CTA bilaterally, no rhonchi, no rales, no wheezing, and no accessory muscle usage. Abdominal: soft, nontender to palpation, no guarding, no appreciable organomegaly Ext: ROM intact. No gross muscle atrophy, no edema, no contractures Neuro: Speech clear, right-sided facial droop noted. GCS 15. Psych: Alert and oriented to person, place, time, and situation. Appropriate and pleasant affect. Assessment and Plan of Care: Acute ischemic CVA with right-sided facial droop, transient mild dysarthria, and right upper and lower extremity tremors -Neurology following,. -MRI completed showing acute/subacute CVA involving the left posterior frontal lobe along with nonspecific white matter changes likely secondary to small vessel ischemic disease and a remote injury to the right occipital lobe from prior injury. -EEG pending. -Echocardiogram with bubble study has been completed and pending results -Lipid profile showing elevated total cholesterol of 282, LDL of 195.8, and VLDL of 24.40. TSH normal findings at 2.930. Hemoglobin A1c pending. -NIH stroke scale with neuro checks every 4 hours and as needed -Continue Atorvastatin 80 mg nightly, Plavix 75 mg daily and Eliquis 5 mg twice daily. -PT/OT consult -Consult to speech and language pathologist -Fall precautions and provide pt with assistance as needed. Carotid stenosis -Vascular surgery evaluated, discussed with vascular surgery MONUMENT CARVER stating they are awaiting MRI results and will give further recommendations based upon findings. -Continue Plavix 75 mg daily, atorvastatin 80 mg nightly, and Eliquis 5 mg twice daily. Paroxysmal atrial fibrillation Currently maintaining sinus mechanism. Continue Eliquis 5 mg twice daily. Hypertension Continue Imdur 30 mg daily. Hypothyroidism Continue levothyroxine 75 mcg daily. TSH normal findings at 2.930. Hyperlipidemia Continue atorvastatin 80 mg nightly. Data and imaging reviewed: Morning labs reviewed. CBC showing macrocytic anemia with hemoglobin of 11.3 and MCV of 100.4. BMP showing slight elevation of renal function with BUN of 26, creatinine of 1.29, GFR of 38. Order placed for bladder scan to evaluate for urinary retention/postvoid residual. Magnesium 1.9. Liver profile unremarkable. Vital signs reviewed. Blood pressure 110/50, heart rate 71, respiratory rate 18, temp 98.0 F, and SpO2 of 96% on room air. MRI completed showing acute/subacute CVA involving the left posterior frontal lobe along with nonspecific white matter changes likely secondary to small vessel ischemic disease and a remote injury to the right occipital lobe from prior injury. CODE STATUS: Full code DVT prophylaxis: Eliquis Anticipated discharge date: Pending EEG and echocardiogram results as well as evaluation by PT/OT. With new onset of tremors patient may likely need rehab placement on discharge or return to assisted living facility with home care/PT/OT. Anticipated discharge place: Pending clinical course Patient was seen independently by Nurse Pracitioner. This document was prepared using [employer] dictation software. Please allow for errors in clinical dermatologist, while rare they do occur. Dago Donahue MONUMENT CARVER rendered care for this patient independently, reviewed the findings and plan as documented in the note above and agree with plan. I did not physically speak with or examine the patient on this date. Objective - Vital Signs Vital signs: Vital Signs Temp 98.0 F 11/30/24 08:10 Pulse 71 11/30/24 08:10 Resp 18 11/30/24 08:10 BP 110/50 11/30/24 08:10 Pulse Ox 96 11/30/24 08:10 FiO2 - Labs CBC & Chem 7: 11/30/24 08:10 11/30/24 08:10 Labs: Abnormal Lab Results - Last 24 Hours (Table) 11/30/24 Range/Units 08:10 RBC 3.43 L (3.80-5.40) m/uL Hgb 11.3 L (11.4-16.0) gm/dL MCV 100.4 H (80.0-100.0) fL
--- NOTE | 2024-11-30 17:02 | CA ---
Transthoracic Echo Report Name: Stephanie Vazquez Age: 84 Gender: F : 1940 Exam Date: 11/30/2024 14:05 Exam Location: [place] [facility] Ht (in): 64 Wt (lb): 140 Ordering Physician: Shauna Wu MD Attending/Referring Phys: Planograph Operator Irene Trevino RDCS Procedure CPT: Indications: Thrombus, Transient cerebral ischemic attack, unspecified Cardiac Hx: Technical Quality: Fair Contrast 1: Total Dose (mL): Contrast 2: Total Dose (mL): MEASUREMENTS (Male / Female) Normal Values 2D ECHO LV Diastolic Diameter PLAX 2.5 cm 4.2 - 5.9 / 3.9 - 5.3 cm LV Systolic Diameter PLAX 1.1 cm IVS Diastolic Thickness 1.6 cm 0.6 - 1.0 / 0.6 - 0.9 cm LVPW Diastolic Thickness 1.7 cm 0.6 - 1.0 / 0.6 - 0.9 cm LV Relative Wall Thickness 1.4 RV Internal Dim ED PLAX 2.1 cm LA Systolic Diameter LX 4.5 cm 3.0 - 4.0 / 2.7 - 3.8 cm LV Diastolic Volume MOD BP 35.9 cm??? 67 - 155 / 56 - 104 cm??? LV Systolic Volume MOD BP 11.3 cm??? 22 - 58 / 19 - 49 cm??? LV Ejection Fraction MOD BP 68.4 % >= 55 % LV Cardiac Index MOD BP 994.7 cm???/min???m??? LV Diastolic Volume MOD 4C 40.5 cm??? LV Systolic Volume MOD 4C 15.4 cm??? LV Ejection Fraction MOD 4C 61.9 % LV Cardiac Index MOD 4C 1016.4 cm???/min???m??? LV Diastolic Length 4C 5.7 cm LV Systolic Length 4C 4.7 cm LV Diastolic Volume MOD 2C 30.9 cm??? LV Systolic Volume MOD 2C 7.6 cm??? LV Ejection Fraction MOD 2C 75.4 % LV Cardiac Index MOD 2C 943.6 cm???/min???m??? LV Diastolic Length 2C 5.5 cm LV Systolic Length 2C 4.2 cm M-MODE Aortic Root Diameter MM 3.8 cm LA Systolic Diameter MM 2.2 cm LA Ao Ratio MM 0.6 AV Cusp Separation MM 1.7 cm DOPPLER AV Peak Velocity 127.9 cm/s AV Peak Gradient 6.5 mmHg AI Peak Velocity 174.9 cm/s AI Peak Gradient 12.2 mmHg AI Pressure Half Time 723.2 ms MV Peak Velocity 107.2 cm/s MV Peak Gradient 4.6 mmHg MV Mean Velocity 66.1 cm/s MV Mean Gradient 2.0 mmHg MV Velocity Time Integral 38.1 cm Mitral E Point Velocity 75.1 cm/s Mitral A Point Velocity 113.9 cm/s Mitral E to A Ratio 0.7 MV Deceleration Time 371.5 ms MV E' Velocity 4.0 cm/s Mitral E to MV E' Ratio 18.6 TR Peak Velocity 227.5 cm/s TR Peak Gradient 20.7 mmHg FINDINGS Left Ventricle Left ventricular ejection fraction is estimated at 65-70 %. Severe concentric LVH . Small left ventricular cavity. Hyperdynamic left ventricular systolic function. Right Ventricle Normal right ventricular size and function. Right Atrium Moderate right atrial dilatation. Left Atrium Moderately increased left atrial diameter. Mitral Valve Mitral valve thickened. Mitral annular calcification. Trace to mild mitral regurgitation. Aortic Valve Trileaflet aortic valve. Diffuse thickening (sclerosis) of the aortic valve cusps without reduced excursion. Mild aortic regurgitation. Tricuspid Valve Structurally normal tricuspid valve. Mild tricuspid regurgitation. No tricuspid stenosis. Pulmonic Valve Structurally normal pulmonic valve. Trace pulmonic regurgitation. No pulmonic stenosis. Pericardium No pericardial effusion. Aorta Mild aortic dilatation at the level of the sinuses of valsalva (root). CONCLUSIONS LVEF 65%. Hyperdynamic LV Severe concentric LVH with no significant LVOT obstruction Moderate biatrial dilatation Mild tricuspid regurgitation Aortic valve sclerosis with mild aortic regurgitation Mild dilated aortic root measuring at 4.2 cm No prior echo to compare with in database Previewed by: Dr Luis Mayfield (Electronically Signed) Final Date: 30 November 2024 17:01
--- NOTE | 2024-11-30 23:59 | EEG ---
ELECTROENCEPHALOGRAM REPORT PREAMBLE: This is an 84-year-old female, who came to the hospital because of some right leg jerking. This study is performed to evaluate for any epileptiform activity. CURRENT MEDICATIONS: 1. Eliquis. 2. Abilify. 3. Lipitor. 4. Wellbutrin. 5. Plavix. 6. Prozac. 7. Atarax. 8. Imdur. 9. Synthroid. 10.Melatonin. 11.Protonix. EEG FINDINGS: This is a 21-channel digital EEG recorded with video component, utilizing 10/20 international system with referential and bipolar montages. Background consists of well-developed, well-regulated, moderate voltage activity in 8 to 9 hertz alpha. Background is posterior dominant and reactive to eye opening and closing. The patient was drowsy during most of the study with presence of 6 to 7 hertz moderate amplitude theta frequency rhythm in bihemispheric region. Deeper stages of sleep were not seen. Photic driving response was not seen. Hyperventilation was not done. No focal or generalized epileptiform activity was seen. IMPRESSION: This is a normal awake and drowsy EEG. No focal, lateralized, or epileptiform activity was seen. MMODL / IJN: [id number] /
[2024-12-01 07:32] VITALS: PULSE 63; RESP 18
[2024-12-01 08:21] LABS: HCT 34.6 % (37.2-46.3); HGB 11.1 g/dL (12.0-15.0); MCH 32.6 pg (27.0-32.0); MCHC 32.1 g/dL (32.0-37.0); MCV 101.8 FL (80.0-97.0); Mean Platelet Volume 10.2 FL (9.5-12.2); NRBC Per 100 WBC 0 X 10*3/uL (0.00-0.01); Platelet Count 237 X 10*3/uL (140-440); RDW 13.4 % (11.5-14.5); WBC 7.39 X 10*3/uL (4.50-10.00)
[2024-12-01 08:49] LABS: ALT 27 U/L (8-44); AST 43 U/L (13-35); Albumin 3.5 g/dL (3.8-4.9); Albumin/Globulin Ratio 1.35 Ratio (1.60-3.17); Alkaline Phosphatase 88 U/L (41-126); BUN/Creat Ratio 22.08 Ratio (12.00-20.00); Blood Urea Nitrogen 26.5 mg/dL (9.0-27.0); Calcium 8.8 mg/dL (8.7-10.3); Carbon Dioxide 21.7 mmol/L (21.6-31.8); Chloride 106 mmol/L (96-109); Globulin 2.6 g/dL (1.6-3.3); Glucose 102 mg/dL (70-110); Magnesium 1.9 mg/dL (1.5-2.4); Potassium 3.6 mmol/L (3.5-5.5); Sodium 140 mmol/L (135-145); Total Bilirubin 0.4 mg/dL (0.3-1.2); Total Protein 6.1 g/dL (6.2-8.2)
--- NOTE | 2024-12-01 09:14 | P.PN ---
Subjective Progress Note Date: 11/30/24 11/30/2024: Patient was seen for follow-up. Patient offers no new complaints. Continues to have right facial weakness. Patient is laying comfortably in the bed. 11/29/2024: Patient initially seen by Dr. Anoop Salazar. Please refer to his note for details. Patient is a 84-year-old female with right facial droop and dysarthria. Pending stroke workup. Patient is also having jerking of extremity. Patient is awaiting MRI of the brain. Patient offers no new complaints. Some of the workup during this hospital visit consisted of: TSH is 2.930. I reviewed the rest of the lab workup. At the outside facility patient had CT of the head which was unremarkable for any acute stroke. CT angiography of the head and neck at the outside hospital is reported as right ICA stenosis of 60%. 70% distal left segment . Small basilar artery. I assume no IV thrombolytic since patient is on anticoagulation risk outweigh the benefit. Objective - Vital Signs Vital signs: Vital Signs Temp 98.1 F 11/30/24 17:13 Pulse 75 11/30/24 17:13 Resp 20 11/30/24 17:13 BP 117/74 11/30/24 17:13 Pulse Ox 94 L 11/30/24 17:13 FiO2 - Exam On examination patient's mental status and speech and language functions normal. Cranial nerves significant for right facial weakness, central type. Her tongue protrudes to midline. Visual nolen are full. On muscle strength testing, there is no pronator drift. Patient is tremulous in bilateral upper extremities, right slightly more than left. Patient states that this tremulousness is going for only days to months. Her silk screen printer machine is normal bilaterally. Ankle dorsiflexion normal, hip flexion looks okay. Sensory to touch is equal. - Labs CBC & Chem 7: 12/01/24 04:52 12/01/24 04:52 Labs: Abnormal Lab Results - Last 24 Hours (Table) 11/30/24 11/30/24 11/30/24 Range/Units 08:10 08:10 08:10 RBC 3.43 L (3.80-5.40) m/uL Hgb 11.3 L (11.4-16.0) gm/dL MCV 100.4 H (80.0-100.0) fL BUN 26 H (7-17) mg/dL Creatinine 1.29 H (0.52-1.04) mg/dL Glucose 100 H (74-99) mg/dL Hemoglobin A1c 6.3 H (<=6.0) % Assessment and Plan Assessment: This is an 84-year-old woman presented with right facial weakness. Patient has history of atrial fibrillation and she is on Eliquis and compliant taking medication. Acute ischemic stroke involving the left posterior frontal lobe, confirmed on MRI Transient episode of right lower extremity jerking per the daughter but would respond during the episode, resolved: Doubt seizure. EEG normal. Right ICA stenosis 60-70%, approximately 50 to 60% stenosis of the proximal left ICA. No evidence of intracranial high-grade stenosis or intracranial aneurysm. Atrial fibrillation on Eliquis Hypercholesteremia Plan: CTA of head and neck revealed no evidence of dissection of the cervical internal carotid arteries or vertebral arteries. Approximately 60 to 70% stenosis of the proximal right ICA due to mixed calcified plaque. Approximately 50 to 60% stenosis of the proximal left ICA due to mixed calcified plaque. No evidence of intracranial high-grade stenosis or intracranial aneurysm. Vascular surgery on board. Prior to this CVA, the patient was only on Eliquis 5 mg twice daily. The primary team has started her on Plavix 75 mg daily as well due to atherosclerotic cerebrovascular disease noted on CTA. Recommend continuing Eliquis and Plavix. Because of patient's age, risk and benefits have to be considered for revascularization surgery versus medical management. MRI of the brain revealed acute/subacute CVA involving the left posterior frontal lobe. Nonspecific white matter changes, likely secondary to small vessel ischemic disease. Remote injury to the right occipital lobe from prior injury. I personally reviewed MRI agree with the findings, although the CVA appears more in centrum semiovale region. 2D echo revealed LVEF 65% with hyperdynamic LV. Severe concentric LVH. Moderately increased left atrial diameter. Mild AR. Aortic valve sclerosis with mild aortic regurgitation. Lipid panel with cholesterol 282, LDL 195, HDL 61, triglycerides 122. Patient started on high intensity statins with Lipitor 80 mg. Patient was not taking any statins prior to arrival. Hemoglobin A1c 6.3, prediabetes. Healthy lifestyles. Await EEG since the patient had episode of right lower extremity jerking that the daughter noticed to rule out any seizure or discharges. The EEG will be completed tomorrow. Continue neurochecks Cardiac monitoring PT OT and SAP ABAP DEVELOPER are consulted Will defer the rest of the medical management to primary and other specialist
--- NOTE | 2024-12-01 11:31 | P.DS ---
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 MRI completed showing acute/subacute CVA involving the left posterior frontal lobe along with nonspecific white matter changes likely secondary to small vessel ischemic disease and a remote injury to the right occipital lobe from prior injury. EEG was negative for epileptiform activity. Echocardiogram showing a preserved EF of 65 to 70% with severe concentric LVH, moderate biatrial dilation, moderate tricuspid regurgitation, and aortic valve sclerosis with mild aortic regurgitation, mildly dilated aortic root measuring at 4.2 cm. Patient was seen and evaluated by neurology and vascular surgery. She was started on Plavix 75 mg daily in addition to continuing her Eliquis 5 mg twice daily. Lipid profile showing elevated total cholesterol of 282, LDL of 195.8, and VLDL of 24.40. TSH normal findings at 2.930. Hemoglobin A1c pending. Patient cleared from vascular surgery perspective and from neurology at this time. Patient evaluated by physical and Occupational Therapy and to be discharged back to assisted living facility with residential home care. Discussed with patient and patient's daughter at bedside patient will need to follow-up outpatient with vascular surgeon, PCP, neurologist, and product support manager. Continue Atorvastatin 80 mg nightly, Plavix 75 mg daily and Eliquis 5 mg twice daily. Carotid stenosis. Continue Plavix 75 mg daily, atorvastatin 80 mg nightly, and Eliquis 5 mg twice daily. Outpatient with vascular surgery. Paroxysmal atrial fibrillation. Currently maintaining sinus mechanism. Continue Eliquis 5 mg twice daily. Hypertension. Continue Imdur 30 mg daily. Hypothyroidism. Continue levothyroxine 75 mcg daily. TSH normal findings at 2.930. Hyperlipidemia. Continue atorvastatin 80 mg nightly. Hospital course: Patient is a very pleasant 84-year-old female with a past medical history of paroxysmal atrial fibrillation, hypertension, hyperlipidemia, hypothyroidism, GERD, previous partial bowel resection, and anxiety with depression. She presented to the emergency department as a transfer from [facility] on 12/18 with a chief complaint of right-sided facial droop with a reported CT brain and CTA head and neck negative for acute process. Upon arrival to our facility, patient underwent evaluation in the emergency department. Vital signs upon arrival show blood pressure 175/96, heart rate 61, respiratory rate 16, temp 98.1 F, and SpO2 of 94% on room air. EKG showing sinus bradycardia at 58 bpm. Glucose was 93. Patient was admitted under our services with consultation to neurology.MRI completed showing acute/subacute CVA involving the left posterior frontal lobe along with nonspecific white matter changes likely secondary to small vessel ischemic disease and a remote injury to the right occipital lobe from prior injury.MRI completed showing acute/subacute CVA involving the left posterior frontal lobe along with nonspecific white matter changes likely secondary to small vessel ischemic disease and a remote injury to the right occipital lobe from prior injury. EEG was negative for epileptiform activity. Echocardiogram showing a preserved EF of 65 to 70% with severe concentric LVH, moderate biatrial dilation, moderate tricuspid regurgitation, and aortic valve sclerosis with mild aortic regurgitation, mildly dilated aortic root measuring at 4.2 cm. Patient was seen and evaluated by neurology and vascular surgery. She was started on Plavix 75 mg daily in addition to continuing her Eliquis 5 mg twice daily. Lipid profile showing elevated total cholesterol of 282, LDL of 195.8, and VLDL of 24.40. TSH normal findings at 2.930. Hemoglobin A1c pending. Patient cleared from vascular surgery perspective and from neurology at this time. Patient evaluated by physical and Occupational Therapy and to be discharged back to assisted living facility with residential home care. Discussed with patient and patient's daughter at bedside patient will need to follow-up outpatient with vascular surgeon, PCP, neurologist, and product support manager. Continue Atorvastatin 80 mg nightly, Plavix 75 mg daily and Eliquis 5 mg twice daily. Physical exam: Vital signs reviewed and stable. General: Nontoxic, no distress and appears stated age. Derm: Skin warm and dry, normal coloration for ethnicity. Head: Atraumatic, normocephalic and symmetric. Eyes: EOM's intact, no lid lag, and anicteric sclera Mouth: no lip lesions, mucus membranes moist Cardiovascular: regular rate and rhythm with normal S1S2, no obvious murmur, positive posterior tibial pulses bilaterally, and cap refill < 2 seconds. Lungs: Respirations even, regular, and unlabored on room air. Lungs CTA bilaterally, no rhonchi, no rales, no wheezing, and no accessory muscle usage. Abdominal: soft, nontender to palpation, no guarding, no appreciable organomegaly Ext: ROM intact. No gross muscle atrophy, no edema, no contractures Neuro: Speech clear, right-sided facial droop noted. GCS 15. Psych: Alert and oriented to person, place, time, and situation. Appropriate and pleasant affect. A total of 35 minutes of time were spent preparing this complex discharge summary. Pt was discharged on 12/01/2024 at 11:30 AM. Patient was seen independently by Nurse Practitioner. This document was prepared using [employer] dictation software. Please allow for errors in cylinder machine operator while rare they do occur. Dago Donahue NP rendered care for this patient independently, reviewed the findings and plan as documented in the note above. I did not physically speak with or examine the patient on this date. Patient Condition at Discharge: Stable Plan - Discharge Summary Discharge Rx Participant: No New Discharge Prescriptions: New Atorvastatin [Lipitor] 80 mg PO HS 30 Days #30 tab Clopidogrel [Plavix] 75 mg PO DAILY 30 Days #30 tab Continue Levothyroxine Sodium [Synthroid] 75 mcg PO DAILY@0700 Isosorbide Mononitrate ER [Imdur] 30 mg PO DAILY@0700 hydrOXYzine HCL [Atarax] 25 mg PO Q8H PRN PRN Reason: Itching guaiFENesin [guaiFENesin Oral Solution] 100 mg PO Q4H PRN PRN Reason: Cough & Congestion Calcium Carbonate [Tums] 1,000 mg PO Q2H PRN PRN Reason: Heartburn Melatonin 3 mg PO HS@2000 FLUoxetine HCL [PROzac] 40 mg PO DAILY@0700 Esomeprazole Magnesium [NexIUM] 20 mg PO DAILY@0700 Acetaminophen Tab [Tylenol] 650 mg PO TID@0700,1300,2000 Apixaban [Eliquis] 5 mg PO BID@0700,2000 Acetaminophen Tab [Tylenol] 650 mg PO Q4H PRN PRN Reason: Fever And/ Or Pain buPROPion XL [Wellbutrin XL] 150 mg PO DAILY@0700 ARIPiprazole [Abilify] 2 mg PO DAILY@0700 Magnesium Hydroxide [Milk of Magnesia] 2,400 mg PO DAILY PRN PRN Reason: Constipation Discharge Medication List Levothyroxine Sodium [Synthroid] 75 mcg PO DAILY@0700 09/06/20 [History] Isosorbide Mononitrate ER [Imdur] 30 mg PO DAILY@0704/12/22 [History] ARIPiprazole [Abilify] 2 mg PO DAILY@0711/27/24 [History] Acetaminophen Tab [Tylenol] 650 mg PO Q4H PRN 11/27/24 [History] Acetaminophen Tab [Tylenol] 650 mg PO TID@0700,1299,199911/27/24 [History] Apixaban [Eliquis] 5 mg PO BID@07,199911/27/24 [History] Calcium Carbonate [Tums] 1,000 mg PO Q2H PRN 11/27/24 [History] Esomeprazole Magnesium [NexIUM] 20 mg PO DAILY@0711/27/24 [History] FLUoxetine HCL [PROzac] 40 mg PO DAILY@69911/27/24 [History] Magnesium Hydroxide [Milk of Magnesia] 2,400 mg PO DAILY PRN 11/27/24 [History] Melatonin 3 mg PO HS@199911/27/24 [History] buPROPion XL [Wellbutrin XL] 150 mg PO DAILY@69911/27/24 [History] guaiFENesin [guaiFENesin Oral Solution] 100 mg PO Q4H PRN 11/27/24 [History] hydrOXYzine HCL [Atarax] 25 mg PO Q8H PRN 11/27/24 [History] Atorvastatin [Lipitor] 80 mg PO HS 30 Days #30 tab 12/01/24 [Rx] Clopidogrel [Plavix] 75 mg PO DAILY 30 Days #30 tab 12/01/24 [Rx] Follow up Appointment(s)/Referral(s): Luis Mayfield MD [Medical Doctor] - 1 Week Luis Antonio Umana DO [Doctor of Osteopathic Medicine] - 12/16/24 10:30 am Luz Maria,Physician [Primary Care Provider] - 1-2 days Sophy Parr MD [REFERRING] - 1 Week (The office requested some more information before taking you on as a patient they will give you a call with an appointment time and date.If they do not call by friday call them.) Residential Home,Health [NON-STAFF] - As Needed (Home care team will see patient within 48hrs of discharge) Patient Instructions/Handouts: Atorvastatin (By mouth), Clopidogrel (By mouth), Carotid Artery Disease (DC), Ischemic Stroke (DC) Activity/Diet/Wound Care/Special Instructions: Activity: As tolerated. Take breaks as needed. Diet: Heart healthy and carb consistent diet. Avoid salts, or foods with hidden salts such as canned or boxed foods and frozen dinners. Extra salt makes your heart work harder and traps the fluid in your body for longer. Special Instructions: Take all of your medications as directed and remember to keep all of your doctor's appointments and follow-up as needed. Thank you for allowing us to participate in your care, it was truly a pleasure having you for our patient!!! . Discharge Disposition: HOME WITH HOME HEALTH SERVICES
[2024-12-01 12:32] VITALS: BMI 24.0
[2024-12-01 12:35] VITALS: BP 115/69; TEMP 98.5
--- NOTE | 2024-12-01 12:41 | P.PN ---
Subjective Progress Note Date: 12/01/24 Principal diagnosis: Carotid stenosis Patient is seen and examined today as a follow-up. She is sitting up in the bedside recliner with family member at the bedside. Still has a right facial droop. No new focal deficits. She underwent echocardiogram yesterday as well as EEG. EEG was normal. Echocardiogram with EF of 65 to 70% severe concentric LVH with no significant LVOT obstruction. Moderate biatrial dilation. Mitral tricuspid regurgitation, aortic valve sclerosis with mild aortic regurgitation, mildly dilated aortic root. Patient states she follows with Dr. Frances in outpatient setting. Objective - Vital Signs Vital signs: Vital Signs Temp 97.9 F 12/01/24 07:20 Pulse 63 12/01/24 07:20 Resp 18 12/01/24 07:20 BP 162/80 12/01/24 07:20 Pulse Ox 93 L 12/01/24 07:20 FiO2 Intake & Output 11/30/24 12/01/24 12/01/24 18:59 06:59 18:59 Intake Total 900 Balance 900 Weight 63.503 kg Intake: Intake, IV Titration 900 Amount Sodium Chloride 0.9% 1, 900 000 ml @ 100 mls/hr IV . Q10H DOROTHY Rx#:[id number] Other: Voiding Method Bedside Commode # Voids 1 # Bowel Movements 2 - Exam General appearance: The patient is alert, oriented, appears in no acute distres s. HET: Head is normocephalic and atraumatic. Pupils are equal and reactive. Neck: Supple. No carotid bruit. Abdomen: Soft, nondistended. Extremities: Normal skin color and turgor. Neurological: Right facial droop. Alert and oriented x 3. Strength and sensation are grossly intact. - Labs CBC & Chem 7: 12/01/24 04:52 12/01/24 04:52 Labs: Abnormal Lab Results - Last 24 Hours (Table) 11/30/24 12/01/24 12/01/24 Range/Units 08:10 04:52 04:52 RBC 3.40 L (4.10-5.20) X 10*6/uL Hgb 11.1 L (12.0-15.0) g/dL Hct 34.6 L (37.2-46.3) % MCV 101.8 H (80.0-97.0) FL MCH 32.6 H (27.0-32.0) pg Anion Gap 12.30 H (4.00-12.00) mmol/L Est GFR (CKD-EPI) 45 L (>=60) BUN/Creatinine Ratio 22.08 H (12.00-20.00) Ratio Hemoglobin A1c 6.3 H (<=6.0) % AST 43 H (13-35) U/L Total Protein 6.1 L (6.2-8.2) g/dL Albumin 3.5 L (3.8-4.9) g/dL Albumin/Globulin Ratio 1.35 L (1.60-3.17) Ratio Assessment and Plan Assessment: 1. Symptomatic left ICA stenosis 2. Acute/subacute CVA involving the left posterior frontal lobe 3. Right facial droop 4. Remote injury to right occipital lobe from prior injury seen on MRI 5. Atrial fibrillation on Eliquis Plan: 1. Continue Eliquis, statin and Plavix 2. CTA disc reviewed, patient would be candidate for TCAR 3. Patient discussed with neurology, recommend outpatient follow-up with vascular surgery. No indication for any emergent or urgent surgical intervention. Patient will need to follow-up with her asbestos surveyor as well for clearance if patient decides to proceed with surgical intervention for carotid stenosis. Continue medical management at this time. Recommend outpatient follow-up in 1 week. This was all discussed with patient and family at the bedside. Thank you for this consultation, patient is cleared from vascular surgery for discharge. The impression and plan of care has been dictated as directed. Dr. Umana I performed a history and examination of this patient, discussed the same with the dictator. I agree with the dictator's note ,documented as a scribe. Any additional findings or plans will be noted.
== END 2024-12-01 14:03 | disposition home health service (06) | DRG 66 ==
LOC: EC 19:57 → INTOOBSV 20:30 → 3SCARD 20:30 → OBSVTOIN 20:31 → 3SCARD 21:35 → 5NMEDONC 11-30 08:17
PROVIDERS: ADMIT Internal Medicine; ATTEND Internal Medicine
DX: I63.89 Other cerebral infarction (principal); I65.23 Occlusion and stenosis of bilateral carotid arteries; R29.810 Facial weakness; R47.1 Dysarthria and anarthria; I48.0 Paroxysmal atrial fibrillation; I10 Essential (primary) hypertension; E03.9 Hypothyroidism, unspecified; E78.00 Pure hypercholesterolemia, unspecified; K21.9 Gastro-esophageal reflux disease without esophagitis; F41.9 Anxiety disorder, unspecified; F32.A Depression, unspecified; I07.1 Rheumatic tricuspid insufficiency; Z79.890 Hormone replacement therapy; Z88.8 Allergy status to other drugs, medicaments and biological substances; Z79.01 Long term (current) use of anticoagulants; Z79.02 Long term (current) use of antithrombotics/antiplatelets; Z90.710 Acquired absence of both cervix and uterus
CPT/HCPCS: 36415; 70450; 70496; 70498; 70551; 80053; 80061; 83036; 83735; 84443; 85027; 85730; 93005; 93306; 93880; 95816; 96360; 96361; 99285

== ENCOUNTER → 2025-02-16 | Day surgery (SDC) | payer MEDICARE ==
[~2025-02-16] MED LIST: ALPRAZolam 0.25 MG TAB PO PRN; ALPRAZolam 0.5 MG TAB PO PRN; NALOXONE 0.4 MG/ML 1 ML VIAL IVP PRN; NITROGLYCERIN SL TABS 0.4 MG TAB SUBLINGUAL PRN; SODIUM CHLORIDE 0.9% 1,000 ML in EMPTY BAG 1 BAG IV SCH; lisinopriL 5 MG TAB PO STA
[2025-02-16] MEDS: IV FLUID CONTINUATION 1,000 ML IV ONE (08:45)
[2025-02-16 09:10] LABS: Basophils % (A) 0 %; Eosinophils # (A) 0.3 k/uL (0-0.7); Eosinophils % (A) 4 %; HCT 34.9 % (34.0-46.0); HGB 11.3 gm/dL (11.4-16.0); Lymphocytes # (A) 1.5 k/uL (1.0-4.8); Lymphocytes % (A) 22 %; MCH 32.9 pg (25.0-35.0); MCHC 32.3 g/dL (31.0-37.0); MCV 101.9 fL (80.0-100.0); Macrocytosis Slight; Mean Platelet Volume 7.6; Monocytes # (A) 0.3 k/uL (0-1.0); Monocytes % (A) 5 %; Neutrophils # (A) 4.3 k/uL (1.3-7.7); Neutrophils % (A) 66 %; Platelet Count 219 k/uL (150-450); RBC 3.43 m/uL (3.80-5.40); RDW 12.8 % (11.5-15.5); WBC 6.6 k/uL (3.8-10.6)
[2025-02-16 09:19] LABS: African American GFR (CKD) 68 (>60 ml/min/1.73 sqM); Anion Gap 4 mmol/L; Blood Urea Nitrogen 19 mg/dL (7-17); Calcium 9.1 mg/dL (8.4-10.2); Carbon Dioxide 33 mmol/L (22-30); Chloride 99 mmol/L (98-107); Glucose 114 mg/dL (74-99); Non-African American GFR(CKD) 59 (>60 ml/min/1.73 sqM); Potassium 3.4 mmol/L (3.5-5.1); Sodium 136 mmol/L (137-145)
[2025-02-16] MEDS: SODIUM CHLORIDE 0.9% 1,000 ML in EMPTY BAG 1 BAG IV ONE (09:24)
[2025-02-16 09:27] VITALS: TEMP 97.4
[2025-02-16] MEDS: ASPIRIN 81 MG PO PRN (09:39)
[2025-02-16] MEDS: ASPIRIN 81 MG PO STA (09:53)
[2025-02-16] MEDS: POTASSIUM CHLORIDE ER 20 MEQ TAB.ER PO STA (10:36)
[2025-02-16] MEDS: MIDAZOLAM 2 MG/2 ML VIAL IVP ONE (12:51)
[2025-02-16] MEDS: LIDOCAINE 1% INJ 10MG/ML (20 ML MDV) SQ ONE (12:51)
[2025-02-16] MEDS: fentaNYL (PF) 50 MCG/1 ML VIAL IVP ONE (12:51)
[2025-02-16] MEDS: ASPIRIN 81 MG PO ONE (13:03)
[2025-02-16] MEDS: TICAGRELOR 90 MG TAB PO ONE (13:04)
[2025-02-16] MEDS: HEPARIN SODIUM 1,000 UN/ML (10ML VL) IVP ONE (13:15)
[2025-02-16] MEDS: IOPAMIDOL-370 100ML BTL INJ ONE (13:56)
--- NOTE | 2025-02-16 13:57 | P.PCN ---
Date of Procedure: 02/16/25 Operative Findings: An aortic arch and bilateral carotid arteries angiogram Performing physician Les Frances MD Procedure performed 1. An aortic arch angiogram 2. Bilateral carotid angiogram 3. Selective right common femoral artery angiogram and ultrasound-guided access of the right common femoral artery Indication symptomatic 85-year-old female patient who was diagnosed recently with severe carotid atherosclerosis Approach Right common femoral artery Complication None Level of sedation The procedure length was 55 minutes Procedure description After obtaining informed consent the patient was brought to the cardiac [place] with right common femoral artery was cannulated using micropuncture technique under ultrasound guidance the micropuncture wire passed easily then I placed a 6 [place] 90 cm sheath at the right common femoral artery over a 035 wire. An aortic arch angiogram was performed using pigtail catheter. Selective right and left carotid angiogram performed. Selective right carotid angiogram performed using VTK and for the left using JB2. After that selective right carotid angiogram was performed after changing the 9 cm sheath into 11 cm sheath after that I did selective right common femoral artery angiogram before I deployed the Perclose device Selective angiogram The aortic arch is noncalcified and appears to be type I aortic arch The right internal carotid artery appeared to have only mild to moderate atherosclerosis measured about 30 to 40% The left internal carotid artery appeared to have also mild to moderate atherosclerosis appears to be in the range of 30 to 40% Conclusion Mild to moderate carotid atherosclerosis with no evidence of high-grade stenosis Postprocedure management consider antiplatelet therapy Follow-up with the patient
--- NOTE | 2025-02-16 14:03 | IR ---
EXAMINATION TYPE: IR angio abdominal w runoff DATE OF EXAM: 02/16/2025 CLINICAL INDICATION: Female, 85 years old with history of carotid disease from CT, 20.2 min fluoro, TECHNIQUE: Fluoroscopy. COMPARISON: None. FINDINGS: Fluoroscopic guidance was provided during abdominal angiogram with runoff procedure perfor med by Dr. Frances. A total of 20.2 minute of fluoroscopic time was utilized during the procedure and 5 8 spot images was acquired. TOTAL DAP = 16.0 Gycm2. IMPRESSION: As Above. [facility], , 02/16/2025 2:01 PM
[2025-02-16] MEDS: hydrALAZINE HCL 20 MG/ML 1 ML VIAL IVP STA (17:09)
[2025-02-16 18:06] VITALS: RESP 16
[2025-02-16 18:47] VITALS: BP 142/62; PULSE 63
== END ==
LOC: CATHCVL 08:24
PROVIDERS: ATTEND Internal Medicine Interventional Cardiology
DX: I65.23 Occlusion and stenosis of bilateral carotid arteries (principal); I25.119 Atherosclerotic heart disease of native coronary artery with unspecified angina pectoris; I48.0 Paroxysmal atrial fibrillation; I10 Essential (primary) hypertension; E78.5 Hyperlipidemia, unspecified; Z86.73 Personal history of transient ischemic attack (TIA), and cerebral infarction without residual deficits; Z79.01 Long term (current) use of anticoagulants; Z79.890 Hormone replacement therapy
CPT/HCPCS: 80048; 85025; 36224; C1894 ×2; C1769 ×2; J2250; J0360; J2003; J1644; Q9967; J3010